=== PATIENT | male | born 1945 | race Caucasian/White ===

== ENCOUNTER → 2017-08-26 06:47 | Outpatient (CLI) | payer MEDICARE, SELFPAY ==
--- NOTE | 2017-08-26 | DI.US.S_ITS ---
PROCEDURE: US ABD AORTA ANEURYSM SCREEN INDICATIONS: SCREENING TECHNIQUE: Real time scanning was performed of the aorta and iliac arteries, with image documentation. COMPARISON: [facility], , ABD AORTA ANEURYSM SCREENING, 06/02/2011, 9:42. FINDINGS: Aorta: Proximal aorta is obscured by bowel gas, 2.2 cm on prior study Mid-aorta measures 1.7 cm. Distal aortic diameter is 1.4 cm. Iliac arteries: Right common iliac artery measures 1.1 cm. Left common iliac artery measures 1.1 cm. IMPRESSION: No aortic aneurysm. No significant change. Dictated by: Mick Arteaga M.D. on 08/26/2017 at 8:41 Approved by: Mick Arteaga M.D. on 08/26/2017 at 8:43
== END ==
PROVIDERS: PCP Internal Medicine; Visit Provider Internal Medicine
DX: Z13.6 Encounter for screening for cardiovascular disorders (principal)
CPT/HCPCS: 76706

== ENCOUNTER → 2021-12-03 08:25 | Outpatient (CLI) | payer MEDICARE, SELFPAY ==
[2021-12-03 09:20] LABS: Add Manual Diff / Slide Review NO; Basophils Absolute Auto 100 /uL (0-100); Basophils Percent Auto 0.7 % (0-2); Eosinophils Absolute Auto 300 /uL (0-450); Hemoglobin 11.5 g/dL (13.5-17.5); Lymphocytes Absolute Auto 1500 /uL (1100-4500); Lymphocytes Percent Auto 18.8 % (25-40); Mean Corpuscular HGB Conc 32.9 % (30-36); Mean Corpuscular Hemoglobin 28.7 PG (26-34); Mean Corpuscular Volume 87.1 fL (80-100); Monocytes Absolute Auto 700 /uL (0-900); Monocytes Percent Auto 8.8 % (3-14); Neutrophils Absolute Auto 5200 /uL (1500-7000); Neutrophils Percent Auto 67.7 % (50-75); Platelet Count 376 X10^3/uL (150-400); Red Blood Cell Count 4.01 X10^6/uL (4.5-5.9); Red Cell Distribution Width 13.9 % (11.6-14.8); White Blood Cell Count 7.7 X10^3/uL (4.5-11.0)
[2021-12-03 09:28] LABS: Hemoglobin A1C% w Est Avg Glu 7.2 % (4.0-6.0)
[2021-12-03 09:32] LABS: Alanine Aminotransferase 20 IU/L (<50); Albumin 4.3 g/dL (3.5-5.0); Albumin Globulin Ratio 1.3 (1.0-2.8); Alkaline Phosphatase 84 U/L (38-126); Aspartate Aminotransferase 27 IU/L (17-59); BUN Creatinine Ratio 20.7 (6-22); Bilirubin Total 0.6 mg/dL (0.2-1.3); Blood Urea Nitrogen 18 mg/dL (9-20); Carbon Dioxide 24 mmol/L (22-32); Chloride 102 mmol/L (98-107); Cholesterol 145 mg/dL (140-199); Estimated Glomerular Filt Rate > 60 mL/min (>60); Globulin 3.4 g/dL (1.7-4.1); Glucose 159 mg/dL (80-110); HDL Cholesterol 35 mg/dL (40-60); HEMOLYSIS < 15 (0-50); LDL Cholesterol Calculated 75 mg/dL (<100); Potassium 4.2 mmol/L (3.4-5.1); Sodium 140 mmol/L (137-145); Total Protein 7.7 g/dL (6.3-8.2); Triglycerides 177 mg/dL (35-150)
[2021-12-03 09:56] LABS: Creatinine Urine Random 151.3 mg/dL
[2021-12-03 10:05] LABS: Ferritin 35 ng/mL (18-464)
[2021-12-03 10:43] LABS: Microalbumi Creatinin Ratio Ur 2346.3 ug/mg CR (<30)
== END ==
PROVIDERS: PCP Family Medicine; Referring Provider Family Medicine; Visit Provider Family Medicine
DX: E78.5 Hyperlipidemia, unspecified (principal); E11.42 Type 2 diabetes mellitus with diabetic polyneuropathy; G25.81 Restless legs syndrome; I10 Essential (primary) hypertension
CPT/HCPCS: 36415; 80053; 80061; 82043; 82570; 82728; 83036; 85025

== ENCOUNTER → 2021-12-16 09:03 | Outpatient (CLI) | payer MEDICARE, SELFPAY ==
[2021-12-16 09:41] LABS: COVID19 -Nasal RAPID Negative (Negative)
--- NOTE | 2021-12-18 17:22 | DI.NM.S_ITS ---
DATE OF SERVICE: 12/16/2021 PROCEDURE PERFORMED: Pharmacologic vasodilator stress and rest myocardial perfusion imaging with gating to assess ejection fraction and regional wall motion. ORDERING PROVIDER: Dr. Jose England. INDICATIONS: The patient is a 75-year-old male with a history of CHF with preserved ejection fraction and severe obstructive sleep apnea. PHARMACOLOGIC STRESS: Per protocol, 0.4 mg of regadenoson was infused with a normal hemodynamic response. He had no chest discomfort or other anginal symptoms. His resting ECG is normal except very subtle nonspecific ST and T-wave abnormalities. With stress, these ST-segment abnormalities becomes slightly accentuated but remain nonspecific. There were no arrhythmias. Per protocol, 27.0 millicuries of technetium-99m Myoview was injected and he was imaged 15 minutes later using a gated SPECT acquisition protocol. Two days prior, he had been injected with 26.5 millicuries of technetium-99m Myoview at rest and was imaged 20 minutes later, again using a gated SPECT acquisition protocol. FINDINGS: 1. Raw data: There is fair myocardial tracer uptake with marginal image quality, but no motion artifacts. His lung/heart ratio is mildly increased at 0.43, which can be a sign of pulmonary congestion, but the TID ratio is normal at 0.89. 2. Quantitated gated SPECT: Post-stress ejection fraction is estimated at 63% without any focal wall motion abnormalities. Specifically, the inferior wall appears to have normal contractility. The resting ejection fraction is 61% with moderately increased left ventricular volumes with an end-diastolic volume of 180 mL. 3. Myocardial perfusion imaging: Post-stress supine images shows a mild-to- moderate perfusion defect throughout the inferior wall in a pattern that would be suggestive of diaphragmatic attenuation artifact. Unfortunately, the patient was unable to lie prone, preventing any assessment for this. The resting images show mild improvement in this inferior defect but a slight residual defect remains present. IMPRESSION: 1. Probable abnormal myocardial perfusion study although with reduced specificity because of marginal image quality. 2. Mild to moderate, partially reversible inferior perfusion defect that suggests possible previous nontransmural infarction with mild linnette-infarct ischemia in the inferior wall, although diaphragmatic attenuation artifact cannot be excluded. Unfortunately, the patient was unable to lie prone to assess for this. 3. Moderate left ventricular enlargement with normal systolic function, but no focal wall motion abnormality. The lung/heart ratio was mildly increased at 0.43, suggesting the possibility of pulmonary congestion, but clinical correlation is recommended. 4. No angina or ECG evidence of ischemia with pharmacologic vasodilator stress. Gildardo Ramirez - SONJA/jose c/kevin doc#: [id number]/job#: [id number] dd: 12/18/2021 13:13:00 dt: 12/18/2021 16:41:00 DICTATING MD/COPIES TO: Delta Larsen MD COPIES MNE: NARESH;
== END ==
PROVIDERS: PCP Family Medicine; Referring Provider Internal Medicine Advanced Heart Failure and Transplant Cardiology; Visit Provider Internal Medicine Advanced Heart Failure and Transplant Cardiology
DX: I11.0 Hypertensive heart disease with heart failure (principal); I50.33 Acute on chronic diastolic (congestive) heart failure; G47.33 Obstructive sleep apnea (adult) (pediatric); R06.00 Dyspnea, unspecified; E11.9 Type 2 diabetes mellitus without complications; E78.5 Hyperlipidemia, unspecified; Z20.822 Contact with and (suspected) exposure to COVID-19
CPT/HCPCS: 78452; 87635; 93017; A9502; J2785

== ENCOUNTER → 2022-04-10 06:44 | Outpatient (CLI) | payer MEDICARE, SELFPAY ==
--- NOTE | 2022-04-16 10:22 | PM.PFT.1 ---
Pulmonary Function Test Referral & Results Date Patient Seen: 04/10/22 Results: The spirometry demonstrates an FVC of 2.45 L which is 40% of predicted. The FEV1 was measured at 1.78 L which is 49% of predicted. The FEV1/FVC ratio was 73 which is 100% of predicted. Following the administration of bronchodilator there was 34% improvement in FEV1 and a 251% improvement in FEF 25-75%. Lung volumes show an SVC of 3.25 L which is 62% of predicted. The diffusing capacity was measured at 17.33 which is 44% of predicted. No hemoglobin value was provided, so no correction for potential anemia could be made, if appropriate. The maximum voluntary ventilation was reduced Interpretation: This study demonstrates moderate obstructive lung disease based on reduction FEV1. FEV1/FVC ratio is preserved however there is evidence of significant benefit following bronchodilator as above There is a moderate reduction in lung volumes suggesting the presence of moderate restrictive lung disease which may explain some of the abnormality in the FEV1 above There is a moderate reduction diffusing capacity, which suggest the presence of disease at the capillary alveolar level Clinical correlation suggested
== END ==
PROVIDERS: PCP Family Medicine; Referring Provider Family Medicine; Visit Provider Family Medicine
DX: R06.09 Other forms of dyspnea (principal); Z87.891 Personal history of nicotine dependence; J98.8 Other specified respiratory disorders
CPT/HCPCS: 94060; 94726; 94729

== ENCOUNTER → 2022-06-24 09:21 | Outpatient (CLI) | payer MEDICARE, SELFPAY ==
[2022-06-24 10:42] LABS: BUN Creatinine Ratio 17.6 (6-22); Blood Urea Nitrogen 19 mg/dL (9-20); Carbon Dioxide 25 mmol/L (22-32); Chloride 101 mmol/L (98-107); Estimated Glomerular Filt Rate > 60 mL/min (>60); Glucose 230 mg/dL (80-110); HEMOLYSIS < 15 (0-50); Sodium 136 mmol/L (137-145)
[2022-06-25 08:31] LABS: x Labcorp Estim. Avg Glu (eAG) 192 mg/dL (.); x Labcorp Hemoglobin A1c 8.3 % (4.8-5.6)
== END ==
PROVIDERS: PCP Family Medicine; Referring Provider Family Medicine; Visit Provider Family Medicine
DX: R80.9 Proteinuria, unspecified (principal); E11.29 Type 2 diabetes mellitus with other diabetic kidney complication
CPT/HCPCS: 36415; 80048; 83036

== ENCOUNTER 2022-07-10 08:30 | Outpatient (RCR) | payer MEDICARE, SELFPAY | END 2022-07-10 10:30 | LOC: PUL 08:30 | PROVIDERS: PCP Family Medicine; Referring Provider Family Medicine; Visit Provider Family Medicine | DX: J44.9 Chronic obstructive pulmonary disease, unspecified (principal) | CPT/HCPCS: 94626 ==

== ENCOUNTER 2022-07-12 08:24 | Emergency (ER) | payer MEDICARE, SELFPAY ==
[2022-07-12] VITALS (129 sets, daily range): BP systolic 73–121; BP diastolic 42–81; PULSE 49–108; RESP 17–31; TEMP 25.4–39.1; O2SAT 80–100; BMI 33.7
--- NOTE | 2022-07-12 08:41 | DI.RAD.S_ITS ---
PROCEDURE: XR CHEST 1V INDICATIONS: short of breath TECHNIQUE: One view of the chest was acquired. COMPARISON: None. FINDINGS: Obliquity and lordotic positioning limiting evaluation. Surgical changes and devices: None. Overlying EKG wires. Lungs and pleura: Within limits of this examination there is low lung volumes causing congestion of the bronchovascular markings. Mediastinum: Obliquity limits evaluation heart size likely within normal limits. Vascular calcifications within the aortic arch. No pneumothorax or large volume pleural effusion. Bones and chest wall: No suspicious bony lesions. Overlying soft tissues appear unremarkable. IMPRESSION: Within limits of this examination there is low lung volumes causing prominence of the bronchovascular markings. Consider dedicated frontal and lateral chest radiographs for further evaluation if clinically warranted Dictated by: Jeffry Gilman D.O. on 07/12/2022 at 8:08 Approved by: Jeffry Gilman D.O. on 07/12/2022 at 8:12
--- NOTE | 2022-07-12 08:43 | DI.CT.S_ITS ---
PROCEDURE: CT HEAD/BRAIN WO CON INDICATIONS: confusion TECHNIQUE: Noncontrast 4.5 mm thick angled axial sections acquired from the foramen magnum to the vertex, with coronal and sagittal reformats. For radiation dose reduction, the following was used: automated exposure control, adjustment of mA and/or kV according to patient size. COMPARISON: None. FINDINGS: Image quality: Excellent. CSF spaces: Basal cisterns are patent. No extra-axial fluid collections. The ventricles are symmetric in size and shape. Brain: No intracranial bleeds or masses. There is cerebral volume loss for age, with resultant ventricular and sulcal prominence. There are periventricular and deep white matter chronic small vessel ischemic changes. There is intracranial internal carotid artery atherosclerosis. Skull and face: Calvarium and visualized facial bones appear intact, without suspicious lesions. Sinuses: Visualized sinuses and mastoids are clear. IMPRESSION: Mild senescent changes including mild cerebral volume loss and microvascular ischemic changes without acute intracranial abnormality. Dictated by: Jeffry Gilman D.O. on 07/12/2022 at 8:22 Approved by: Jeffry Gilman D.O. on 07/12/2022 at 8:27
--- NOTE | 2022-07-12 08:48 | ED.AMS ---
HPI - Altered Mental Status General Chief Complaint: Shortness of Breath/Dyspnea Stated Complaint: GLF, SOB, no thinners Time Seen by Provider: 07/12/22 08:31 Source: patient and EMS Mode of arrival: EMS History of Present Illness HPI narrative: Patient is a 76-year-old history of COPD, hypertension hyperlipidemia, diabetes presenting today with fall and change in mental status. He lives with daughter who reports that he has been slightly confused over the last 2 days. This morning he got up to go to the restroom when he fell. He is unsure the specifics of how he fell but denies any injuries. He denies tripping and falling no chest pain dizziness or shortness of breath. He is obviously tachypneic and slightly jaundiced on exam. He denies any abdominal pain nausea or vomiting. Daughter reports that he has a chronic cough but does not seem to be any worse than normal. He is afebrile denies any alcohol use. He currently denies any shortness of breath. According to PCP note on 07/08/2022 He was previously given albuterol and Flovent but did not fill his Flovent. He attends pulmonary rehab 3 times a week he noted a 17 lb weight loss since April. Related Data Home Medications Medication Instructions Recorded Confirmed ResMed AirSense 10 CPAP #1 ea 04/14/18 07/08/22 acetaminophen 650 mg 1,300 mg PO BID PRN arthritis pain 04/16/18 07/08/22 tablet,extended release (Tylenol Arthritis Pain) aspirin 81 mg tablet,delayed 81 mg PO DAILY 04/16/18 07/08/22 release loratadine 10 mg tablet (Claritin) 10 mg PO DAILY 04/16/18 07/08/22 cinnamon bark 500 mg capsule 1,000 mg PO DAILY 12/03/21 07/08/22 magnesium 1 tab PO BID 12/03/21 07/08/22 Previous Rx's Medication Instructions Recorded atorvastatin 10 mg tablet 10 mg PO DAILY #90 tabs 12/03/21 carvedilol 25 mg tablet See Rx Instructions PO BID #240 12/03/21 tabs cyclobenzaprine 10 mg tablet 10 mg PO BEDTIME #90 tabs 12/03/21 pantoprazole 20 mg tablet,delayed 20 mg PO DAILY #90 tabs 01/21/22 release metformin 1,000 mg tablet See Rx Instructions .Route 03/01/22 .COMPLEX #180 tabs pramipexole 1 mg tablet See Rx Instructions .Route 03/01/22 .COMPLEX #90 tabs blood-glucose sensor (Dexcom G6 #3 ea 03/05/22 Sensor device) blood-glucose sensor (Dexcom G6 #3 ea 03/05/22 Sensor device) blood-glucose transmitter (Dexcom #1 ea 03/05/22 G6 Transmitter device) chlorthalidone 25 mg tablet 25 mg PO DAILY blood pressure #90 03/05/22 tabs pioglitazone 45 mg tablet (Actos) 45 mg PO DAILY diabetes #90 tabs 04/07/22 albuterol sulfate 90 mcg/actuation 1 - 2 inh inhalation Q4-6H PRN 04/16/22 aerosol inhaler shortness of breath or wheezing #8.5 grams fluticasone propionate 110 2 puff inhalation BID COPD #12 04/16/22 mcg/actuation HFA aerosol inhaler grams (Flovent HFA) lisinopril 40 mg tablet 40 mg PO DAILY #90 tabs 05/23/22 gabapentin 300 mg capsule 900 mg PO BEDTIME #270 caps 06/04/22 amlodipine 5 mg tablet 5 mg PO BID #180 tabs 06/12/22 glimepiride 4 mg tablet 4 mg PO BID #180 tabs 06/12/22 Allergies Allergy/AdvReac Type Severity Reaction Status Date / Time No Known Drug Allergies Allergy Verified 07/12/22 15:30 Review of Systems Review of Systems ROS Unobtainable: All systems reviewed & are unremarkable except as noted in HPI and below Patient History Medical History (Updated 07/12/22 @ 15:30 by Luly Huertas DO) Benign essential HTN COPD (chronic obstructive pulmonary disease) NGO (dyspnea on exertion) GERD (gastroesophageal reflux disease) Hyperlipidemia Medicare annual wellness visit, subsequent Obstructive sleep apnea of adult (~12/2017) Peripheral autonomic 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 RLS (restless legs syndrome) Type 2 diabetes mellitus with diabetic polyneuropathy, 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, without long-term current use of insulin Social History (Updated 04/16/18 @ 18:25 by VICKIE Villafuerte) marital status: details: lives in [place] lives independently: Yes caregiver/support person: Yes (he is a caregiver for his GIAN) housing: house Smoking Status: Former smoker Smoking Status: Former smoker alcohol intake frequency: holidays/special occasions only Substance Use Type: does not use Exam Initial Vital Signs Initial Vital Signs: Vital Signs Temperature 98.6 F 07/12/22 08:28 Pulse Rate 106 H 07/12/22 08:28 Respiratory Rate 30 H 07/12/22 08:28 Blood Pressure 103/53 L 07/12/22 08:28 Pulse Oximetry 92 07/12/22 08:28 Oxygen Delivery Method Room Air 07/12/22 08:28 GENERAL: Alert 76-year-old male appears slightly tachypneic mildly jaundice HEENT: Head atraumatic,EOMI, pupils reactive, face symmetric, moist mucous membranes CARDIOVASCULAR: Regular rate and rhythm without murmurs, rubs or gallops. RESPIRATORY: Clear bilaterally, no wheezing tachypneic ABDOMEN: Soft, nontender. Normoactive bowel sounds all 4 quadrants. No guarding or rebound. EXTREMITIES: Normal range of motion, no clubbing or edema. Neurovascularly intact NEUROLOGICAL: Alert and oriented x2. SKIN: Warm, dry, no laceration, no petechiae, no rashes or lesions. Procedures Central Line Placement Right IJ: Central Line Prep: Chlorhexidine scrub and sterile drapes applied Ultrasound Used for Placement: Yes Central Line Lumen Inserted: triple Post Procedure: good blood return, all ports aspirated, flushed, capped, sterile dressing applied and line stabilization device Post Procedure X-Ray: tip of catheter in good position and no pneumothorax seen Patient Tolerated Procedure: Well and No complications Intubation sedative: Etomidate Mg Given: 12 paralytic: Succinylcholine Mg Given: 75 Laryngoscope: other (glide scope) ET Tube Size: 7.5 Tube Secured Depth (cm): 24 Tube Secured Location: lips Tube Placement Confirmation: Visualized tube passing through cords, Equal breath sounds bilaterally, No breath sounds over epigastrium, Confirmation by capnometry and Chest Xray Course Orders Ordered: ED Orders 07/12/22 09:41 ABG [Arterial Blood Gas] Stat 07/12/22 09:46 US abdomen limited Stat 07/12/22 10:47 CT chest abd pel w con Stat 07/12/22 10:51 Ictotest Urine Stat Urinalysis and Microscopic Stat Urine Culture Stat Urine Drug Screen, Rapid Stat 07/12/22 12:23 Lactate (Lactic Acid) Stat Trop I [Troponin I] Stat 07/12/22 13:16 XR chest 1V Stat 07/12/22 13:50 ABG [Arterial Blood Gas] Stat 07/12/22 15:16 Comprehensive Metabolic Panel Stat Lactate (Lactic Acid) Stat Troponin I Stat Discontinued Medications Albuterol/Ipratropium (Albuterol/Ipratropium 3 Ml Ampul) 3 ml INH NOW ONE Stop: 07/12/22 08:50 Last Admin: 07/12/22 09:04 Dose: 3 ml Documented By: FRANKIE Etomidate (Etomidate 2 Mg/Ml 10 Ml Vial) 12.2 mg 0.1 mg/kg (12.2 mg) IV NOW ONE Stop: 07/12/22 12:40 Last Admin: 07/12/22 12:51 Dose: 12.2 mg Documented By: DULCE MARIA Sodium Chloride (Normal Saline 0.9%) 1,000 mls @ 1,000 mls/hr IV BOLUS ONE Stop: 07/12/22 09:41 Last Infusion: 07/12/22 10:30 Dose: 0 mls/hr Documented By: DULCE MARIA Admin: 07/12/22 09:36 Dose: 1,000 mls/hr Documented By: DULCE MARIA Lactated Ringer's (Lactated Ringers) 3,674.1 mls @ 1,224.7 mls/hr 30 ml/kg infuse over 3 hr (3674.1 ml) IV NOW ONE Stop: 07/12/22 12:45 Last Infusion: 07/12/22 14:08 Dose: 0 mls/hr Documented By: DULCE MARIA Admin: 07/12/22 10:36 Dose: 1,224.7 mls/hr Documented By: DULCE MARIA Piperacillin Sod/Tazobactam (Sod 4.5 gm/ Sodium Chloride) 100 mls @ 200 mls/hr IV NOW ONE Stop: 07/12/22 09:47 Last Infusion: 07/12/22 11:50 Dose: 0 mls/hr Documented By: DULCE MARIA Admin: 07/12/22 10:21 Dose: 200 mls/hr Documented By: DULCE MARIA Vancomycin HCl/Dextrose (Vancomycin) 2,000 mg in 400 mls @ 200 mls/hr IV NOW ONE Stop: 07/12/22 11:47 Last Infusion: 07/12/22 14:09 Dose: 0 mls/hr Documented By: Admin: 07/12/22 11:56 Dose: 200 mls/hr Documented By: RLS NOREPINEPHRINE BITARTRATE/D5W (Levophed) 4 mg in 250 mls @ 30 mls/hr IV TITRATE NATALIE; Protocol Last Titration: 07/12/22 16:18 Dose: 40 mcg/min, 150 mls/hr Documented By: Admin: 07/12/22 15:34 Dose: 40 mcg/min, 150 mls/hr Documented By: Titration: 07/12/22 15:34 Dose: 40 mcg/min, 150 mls/hr Documented By: Titration: 07/12/22 15:07 Dose: 60 mcg/min, 225 mls/hr Documented By: Titration: 07/12/22 14:56 Dose: 40 mcg/min, 150 mls/hr Documented By: Titration: 07/12/22 14:30 Dose: 30 mcg/min, 112.5 mls/hr Documented By: Titration: 07/12/22 14:15 Dose: 24 mcg/min, 90 mls/hr Documented By: Titration: 07/12/22 13:56 Dose: 12 mcg/min, 45 mls/hr Documented By: Titration: 07/12/22 13:53 Dose: 25 mcg/min, 93.75 mls/hr Documented By: Titration: 07/12/22 13:40 Dose: 16 mcg/min, 60 mls/hr Documented By: Titration: 07/12/22 12:47 Dose: 12 mcg/min, 45 mls/hr Documented By: Admin: 07/12/22 12:32 Dose: 8 mcg/min, 30 mls/hr Documented By: RLS Propofol (Propofol) 1,000 mg in 100 mls @ 3.674 mls/hr IV TITRATE NTAALIE; Protocol Last Titration: 07/12/22 14:19 Dose: 0 mcg/kg/min, 0 mls/hr Documented By: Titration: 07/12/22 13:58 Dose: 3.4 mcg/kg/min, 2.5 mls/hr Documented By: Admin: 07/12/22 13:06 Dose: 5 mcg/kg/min, 3.674 mls/hr Documented By: RLS Vasopressin 40 unit/ Sodium (Chloride) 102 mls @ 4.5 mls/hr IV CONT NATALIE Last Infusion: 07/12/22 16:18 Dose: 4.5 mls/hr Documented By: Admin: 07/12/22 13:33 Dose: 4.5 mls/hr Documented By: DULCE MARIA Fentanyl 1,000 mcg/ Dextrose 250 mls @ 21.432 mls/hr IV TITRATE NATALIE; Protocol Last Titration: 07/12/22 16:19 Dose: 0 mcg/kg/hr, 0 mls/hr Documented By: DULCE MARIA Titration: 07/12/22 14:30 Dose: 1 mcg/kg/hr, 30.618 mls/hr Documented By: DULCE MARIA Admin: 07/12/22 14:00 Dose: 0.7 mcg/kg/hr, 21.432 mls/hr Documented By: DULCE MARIA Lactated Ringer's (Lactated Ringers) 1,000 mls @ 200 mls/hr IV CONT NATALIE Last Infusion: 07/12/22 16:20 Dose: 200 mls/hr Documented By: DULCE MARIA Admin: 07/12/22 14:48 Dose: 200 mls/hr Documented By: DULCE MARIA Ketorolac Tromethamine (Ketorolac 30 Mg/Ml Vial) 15 mg IV NOW ONE Stop: 07/12/22 11:41 Last Admin: 07/12/22 11:52 Dose: 15 mg Documented By: DULCE MARIA Lidocaine HCl (Lidocaine 2% (Glydo) 6 Ml Gel) 6 ml TOP NOW ONE Stop: 07/12/22 10:14 Last Admin: 07/12/22 10:37 Dose: 6 ml Documented By: DULCE MARIA Methylprednisolone (Methylprednisolone 125 Mg/2 Ml Vial) 125 mg IV NOW ONE Stop: 07/12/22 08:50 Last Admin: 07/12/22 09:36 Dose: 125 mg Documented By: DULCE MARIA Ondansetron HCl (Ondansetron 4 Mg/2 Ml Inj) 4 mg IV NOW PRN PRN Reason: Nausea And Vomiting Ondansetron HCl (Ondansetron 4 Mg Odt) 4 mg SL NOW PRN PRN Reason: Nausea And Vomiting Succinylcholine Chloride (Succinylcholine 200 Mg/10 Ml Vial) 75 mg 0.6 mg/kg (75 mg) IV NOW ONE Stop: 07/12/22 12:41 Last Admin: 07/12/22 13:17 Dose: 75 mg Documented By: DULCE MARIA Vital Signs Vital signs: Vital Signs - 8 hr 07/12/22 10:41 07/12/22 10:41 07/12/22 10:45 Temperature Pulse Rate 89 Respiratory Rate 31 H Blood Pressure 105/54 L 90/52 L Pulse Oximetry 98 Oxygen Delivery Method Oxygen Flow Rate Fraction of Inspired Oxygen 07/12/22 10:45 07/12/22 10:46 07/12/22 10:46 Temperature Pulse Rate 88 87 Respiratory Rate 31 H 24 Blood Pressure 104/55 L Pulse Oximetry 97 97 Oxygen Delivery Method Oxygen Flow Rate Fraction of Inspired Oxygen 07/12/22 10:53 07/12/22 10:53 07/12/22 11:00 Temperature 101.1 F H 101.7 F H Pulse Rate 97 H 92 H Respiratory Rate 25 H 25 H Blood Pressure 106/59 L Pulse Oximetry 97 91 Oxygen Delivery Method Oxygen Flow Rate Fraction of Inspired Oxygen 07/12/22 11:01 07/12/22 11:01 07/12/22 11:03 Temperature 101.8 F H Pulse Rate 93 H Respiratory Rate 25 H Blood Pressure 87/49 L 99/53 L Pulse Oximetry 90 L Oxygen Delivery Method Oxygen Flow Rate Fraction of Inspired Oxygen 07/12/22 11:03 07/12/22 11:22 07/12/22 11:24 Temperature 101.8 F H 102.4 F H Pulse Rate 92 H 90 Respiratory Rate 21 Blood Pressure 114/54 L Pulse Oximetry 91 92 Oxygen Delivery Method Oxygen Flow Rate Fraction of Inspired Oxygen 07/12/22 11:24 07/12/22 11:30 07/12/22 11:30 Temperature 102.4 F H 102.4 F H Pulse Rate 90 90 Respiratory Rate 23 24 Blood Pressure 102/55 L Pulse Oximetry 92 93 Oxygen Delivery Method Oxygen Flow Rate Fraction of Inspired Oxygen 07/12/22 11:52 07/12/22 13:18 07/12/22 11:45 Temperature 102.4 F H 101.8 F H Pulse Rate Respiratory Rate Blood Pressure 108/54 L Pulse Oximetry Oxygen Delivery Method Oxygen Flow Rate Fraction of Inspired Oxygen 07/12/22 11:45 07/12/22 11:45 07/12/22 11:50 Temperature 102.4 F H 102.4 F H Pulse Rate 88 89 Respiratory Rate 22 21 Blood Pressure 108/54 L Pulse Oximetry 93 93 Oxygen Delivery Method Nasal Cannula Oxygen Flow Rate 3 Fraction of Inspired Oxygen 07/12/22 11:50 07/12/22 12:00 07/12/22 12:00 Temperature 102.4 F H Pulse Rate 87 Respiratory Rate 22 Blood Pressure 108/56 L 103/51 L Pulse Oximetry 94 Oxygen Delivery Method Oxygen Flow Rate Fraction of Inspired Oxygen 07/12/22 12:15 07/12/22 12:10 07/12/22 12:15 Temperature 102.4 F H Pulse Rate 83 Respiratory Rate 24 Blood Pressure 103/51 L 85/45 L Pulse Oximetry 98 Oxygen Delivery Method Nasal Cannula Oxygen Flow Rate 3 Fraction of Inspired Oxygen 35 07/12/22 12:15 07/12/22 12:17 07/12/22 12:17 Temperature 102.2 F H 102.2 F H Pulse Rate 80 79 Respiratory Rate 24 24 Blood Pressure 85/46 L Pulse Oximetry 97 96 Oxygen Delivery Method Oxygen Flow Rate Fraction of Inspired Oxygen 07/12/22 12:20 07/12/22 12:21 07/12/22 12:21 Temperature 102.2 F H 102.2 F H Pulse Rate 79 78 Respiratory Rate 24 25 H Blood Pressure 83/45 L Pulse Oximetry 97 98 Oxygen Delivery Method Oxygen Flow Rate Fraction of Inspired Oxygen 07/12/22 12:56 07/12/22 12:56 07/12/22 13:00 Temperature 101.8 F H Pulse Rate 70 Respiratory Rate 17 Blood Pressure 99/51 L 95/53 L Pulse Oximetry 100 Oxygen Delivery Method Oxygen Flow Rate Fraction of Inspired Oxygen 07/12/22 13:00 07/12/22 13:05 07/12/22 13:06 Temperature 101.8 F H 101.8 F H Pulse Rate 66 49 L Respiratory Rate 18 19 Blood Pressure 76/43 L Pulse Oximetry 97 93 Oxygen Delivery Method Oxygen Flow Rate Fraction of Inspired Oxygen 07/12/22 13:06 07/12/22 13:07 07/12/22 13:07 Temperature 101.8 F H 101.8 F H Pulse Rate 51 L 52 L Respiratory Rate 21 18 Blood Pressure 86/51 L Pulse Oximetry 93 93 Oxygen Delivery Method Oxygen Flow Rate Fraction of Inspired Oxygen 07/12/22 13:09 07/12/22 13:09 07/12/22 13:10 Temperature 101.8 F H 101.8 F H Pulse Rate 53 L 56 L Respiratory Rate 18 19 Blood Pressure 90/48 L Pulse Oximetry 90 L 92 Oxygen Delivery Method Oxygen Flow Rate Fraction of Inspired Oxygen 07/12/22 13:12 07/12/22 13:12 07/12/22 13:15 Temperature 101.8 F H Pulse Rate 58 L Respiratory Rate 21 Blood Pressure 91/52 L 92/50 L Pulse Oximetry 93 Oxygen Delivery Method Oxygen Flow Rate Fraction of Inspired Oxygen 07/12/22 13:15 07/12/22 13:18 07/12/22 13:18 Temperature 101.8 F H 101.8 F H Pulse Rate 63 64 Respiratory Rate 23 23 Blood Pressure 83/46 L Pulse Oximetry 93 93 Oxygen Delivery Method Oxygen Flow Rate Fraction of Inspired Oxygen 07/12/22 13:20 07/12/22 13:20 07/12/22 13:21 Temperature 101.8 F H Pulse Rate 61 Respiratory Rate 23 Blood Pressure 85/49 L 90/53 L Pulse Oximetry 95 Oxygen Delivery Method Oxygen Flow Rate Fraction of Inspired Oxygen 07/12/22 13:21 07/12/22 13:24 07/12/22 13:24 Temperature 101.8 F H 101.8 F H Pulse Rate 63 61 Respiratory Rate 22 25 H Blood Pressure 82/43 L Pulse Oximetry 94 95 Oxygen Delivery Method Oxygen Flow Rate Fraction of Inspired Oxygen 07/12/22 13:25 07/12/22 13:27 07/12/22 13:27 Temperature 101.8 F H 101.8 F H Pulse Rate 62 59 L Respiratory Rate 26 H 21 Blood Pressure 81/46 L Pulse Oximetry 95 95 Oxygen Delivery Method Oxygen Flow Rate Fraction of Inspired Oxygen 07/12/22 13:29 07/12/22 13:29 07/12/22 13:30 Temperature 101.8 F H Pulse Rate 68 Respiratory Rate 25 H Blood Pressure 85/49 L 85/49 L Pulse Oximetry 100 Oxygen Delivery Method Oxygen Flow Rate Fraction of Inspired Oxygen 07/12/22 13:30 07/12/22 13:32 07/12/22 13:32 Temperature 101.8 F H 101.7 F H Pulse Rate 69 71 Respiratory Rate 25 H 27 H Blood Pressure 86/51 L Pulse Oximetry 100 100 Oxygen Delivery Method Oxygen Flow Rate Fraction of Inspired Oxygen 07/12/22 13:34 07/12/22 13:34 07/12/22 13:35 Temperature 101.7 F H 101.7 F H Pulse Rate 71 69 Respiratory Rate 25 H 26 H Blood Pressure 87/52 L Pulse Oximetry 100 98 Oxygen Delivery Method Oxygen Flow Rate Fraction of Inspired Oxygen 07/12/22 13:36 07/12/22 13:36 07/12/22 13:38 Temperature 101.7 F H Pulse Rate 66 Respiratory Rate 20 Blood Pressure 86/50 L 86/48 L Pulse Oximetry 97 Oxygen Delivery Method Oxygen Flow Rate Fraction of Inspired Oxygen 07/12/22 13:38 07/12/22 13:40 07/12/22 13:40 Temperature 101.7 F H 101.7 F H Pulse Rate 66 66 Respiratory Rate 24 26 H Blood Pressure 81/42 L Pulse Oximetry 96 96 Oxygen Delivery Method Oxygen Flow Rate Fraction of Inspired Oxygen 07/12/22 13:44 07/12/22 13:44 07/12/22 13:45 Temperature 101.5 F H Pulse Rate 66 Respiratory Rate 25 H Blood Pressure 74/42 L 85/50 L Pulse Oximetry 94 Oxygen Delivery Method Oxygen Flow Rate Fraction of Inspired Oxygen 07/12/22 13:45 07/12/22 13:46 07/12/22 13:46 Temperature 101.5 F H 101.5 F H Pulse Rate 66 69 Respiratory Rate 24 26 H Blood Pressure 87/50 L Pulse Oximetry 96 96 Oxygen Delivery Method Oxygen Flow Rate Fraction of Inspired Oxygen 07/12/22 13:47 07/12/22 13:47 07/12/22 13:48 Temperature 101.5 F H 101.5 F H Pulse Rate 69 67 Respiratory Rate 28 H 28 H Blood Pressure 85/52 L Pulse Oximetry 96 96 Oxygen Delivery Method Mechanical Ventilation Oxygen Flow Rate Fraction of Inspired Oxygen 07/12/22 13:48 07/12/22 13:49 07/12/22 13:49 Temperature 101.5 F H Pulse Rate 69 Respiratory Rate 25 H Blood Pressure 73/47 L 82/49 L Pulse Oximetry 96 Oxygen Delivery Method Oxygen Flow Rate Fraction of Inspired Oxygen 07/12/22 13:50 07/12/22 13:55 07/12/22 14:00 Temperature 101.3 F H 101.3 F H 101.1 F H Pulse Rate 70 68 64 Respiratory Rate 27 H 25 H 24 Blood Pressure Pulse Oximetry 95 96 96 Oxygen Delivery Method Oxygen Flow Rate Fraction of Inspired Oxygen 07/12/22 14:05 07/12/22 14:06 07/12/22 14:06 Temperature Pulse Rate 62 61 Respiratory Rate 23 24 Blood Pressure 80/46 L Pulse Oximetry 96 95 Oxygen Delivery Method Oxygen Flow Rate Fraction of Inspired Oxygen 07/12/22 14:08 07/12/22 14:08 07/12/22 14:10 Temperature 100.9 F H Pulse Rate 59 L Respiratory Rate 22 Blood Pressure 78/46 L 77/46 L Pulse Oximetry 95 Oxygen Delivery Method Oxygen Flow Rate Fraction of Inspired Oxygen 07/12/22 14:10 07/12/22 14:12 07/12/22 14:12 Temperature Pulse Rate 59 L 59 L Respiratory Rate 22 23 Blood Pressure 77/46 L Pulse Oximetry 96 95 Oxygen Delivery Method Oxygen Flow Rate Fraction of Inspired Oxygen 07/12/22 14:14 07/12/22 14:14 07/12/22 14:15 Temperature Pulse Rate 63 63 Respiratory Rate 23 24 Blood Pressure 79/47 L Pulse Oximetry 96 95 Oxygen Delivery Method Oxygen Flow Rate Fraction of Inspired Oxygen 07/12/22 14:16 07/12/22 14:16 07/12/22 14:18 Temperature 100.8 F H Pulse Rate 62 64 Respiratory Rate 22 24 Blood Pressure 82/48 L Pulse Oximetry 95 95 Oxygen Delivery Method Oxygen Flow Rate Fraction of Inspired Oxygen 07/12/22 14:18 07/12/22 14:20 07/12/22 14:20 Temperature Pulse Rate 64 Respiratory Rate 23 Blood Pressure 85/49 L 84/49 L Pulse Oximetry 95 Oxygen Delivery Method Oxygen Flow Rate Fraction of Inspired Oxygen 07/12/22 14:22 07/12/22 14:22 07/12/22 14:24 Temperature Pulse Rate 65 Respiratory Rate 24 Blood Pressure 86/49 L 88/50 L Pulse Oximetry 94 Oxygen Delivery Method Oxygen Flow Rate Fraction of Inspired Oxygen 07/12/22 14:24 07/12/22 14:25 07/12/22 14:26 Temperature 100.8 F H Pulse Rate 65 65 Respiratory Rate 24 24 Blood Pressure 87/49 L Pulse Oximetry 95 94 Oxygen Delivery Method Oxygen Flow Rate Fraction of Inspired Oxygen 07/12/22 14:26 07/12/22 14:28 07/12/22 14:28 Temperature Pulse Rate 66 66 Respiratory Rate 22 22 Blood Pressure 90/54 L Pulse Oximetry 94 94 Oxygen Delivery Method Oxygen Flow Rate Fraction of Inspired Oxygen 07/12/22 14:30 07/12/22 14:30 07/12/22 14:32 Temperature Pulse Rate 66 Respiratory Rate 24 Blood Pressure 89/54 L 90/54 L Pulse Oximetry 94 Oxygen Delivery Method Oxygen Flow Rate Fraction of Inspired Oxygen 07/12/22 14:32 07/12/22 14:34 07/12/22 14:34 Temperature 100.6 F H 100.6 F H Pulse Rate 67 68 Respiratory Rate 23 24 Blood Pressure 93/54 L Pulse Oximetry 94 95 Oxygen Delivery Method Oxygen Flow Rate Fraction of Inspired Oxygen 07/12/22 14:35 07/12/22 14:36 07/12/22 14:36 Temperature Pulse Rate 69 70 Respiratory Rate 25 H 23 Blood Pressure 94/54 L Pulse Oximetry 95 95 Oxygen Delivery Method Oxygen Flow Rate Fraction of Inspired Oxygen 07/12/22 14:38 07/12/22 14:38 07/12/22 14:40 Temperature 100.6 F H Pulse Rate 68 Respiratory Rate 23 Blood Pressure 93/54 L 93/53 L Pulse Oximetry 94 Oxygen Delivery Method Oxygen Flow Rate Fraction of Inspired Oxygen 07/12/22 14:40 07/12/22 14:42 07/12/22 14:42 Temperature 100.6 F H 100.6 F H Pulse Rate 68 69 Respiratory Rate 23 24 Blood Pressure 91/52 L Pulse Oximetry 94 94 Oxygen Delivery Method Oxygen Flow Rate Fraction of Inspired Oxygen 07/12/22 14:44 07/12/22 14:44 07/12/22 14:45 Temperature 100.6 F H 100.4 F H Pulse Rate 69 69 Respiratory Rate 24 24 Blood Pressure 90/52 L Pulse Oximetry 94 95 Oxygen Delivery Method Oxygen Flow Rate Fraction of Inspired Oxygen 07/12/22 14:46 07/12/22 14:46 07/12/22 14:48 Temperature 100.4 F H Pulse Rate 69 Respiratory Rate 23 Blood Pressure 88/51 L 87/49 L Pulse Oximetry 94 Oxygen Delivery Method Oxygen Flow Rate Fraction of Inspired Oxygen 07/12/22 14:48 07/12/22 14:50 07/12/22 14:50 Temperature 100.4 F H 100.4 F H Pulse Rate 67 68 Respiratory Rate 22 23 Blood Pressure 88/52 L Pulse Oximetry 94 95 Oxygen Delivery Method Oxygen Flow Rate Fraction of Inspired Oxygen 07/12/22 14:52 07/12/22 14:52 07/12/22 14:54 Temperature 100.4 F H Pulse Rate 69 Respiratory Rate 25 H Blood Pressure 94/55 L 94/52 L Pulse Oximetry 95 Oxygen Delivery Method Oxygen Flow Rate Fraction of Inspired Oxygen 07/12/22 14:54 07/12/22 14:55 07/12/22 14:56 Temperature 100.4 F H 100.4 F H Pulse Rate 70 64 Respiratory Rate 23 24 Blood Pressure 92/53 L Pulse Oximetry 94 94 Oxygen Delivery Method Oxygen Flow Rate Fraction of Inspired Oxygen 07/12/22 14:56 07/12/22 14:58 07/12/22 14:58 Temperature 100.4 F H 100.2 F H Pulse Rate 65 70 Respiratory Rate 22 24 Blood Pressure 92/55 L Pulse Oximetry 95 95 Oxygen Delivery Method Oxygen Flow Rate Fraction of Inspired Oxygen 07/12/22 15:00 07/12/22 15:00 07/12/22 15:02 Temperature 100.2 F H Pulse Rate 70 Respiratory Rate 23 Blood Pressure 94/55 L 96/51 L Pulse Oximetry 94 Oxygen Delivery Method Oxygen Flow Rate Fraction of Inspired Oxygen 07/12/22 15:02 07/12/22 15:04 07/12/22 15:04 Temperature 100.2 F H 100.2 F H Pulse Rate 72 71 Respiratory Rate 23 23 Blood Pressure 98/51 L Pulse Oximetry 94 95 Oxygen Delivery Method Oxygen Flow Rate Fraction of Inspired Oxygen 07/12/22 15:06 07/12/22 15:06 07/12/22 15:08 Temperature 100.2 F H Pulse Rate 73 Respiratory Rate 24 Blood Pressure 104/51 L 111/57 L Pulse Oximetry 95 Oxygen Delivery Method Oxygen Flow Rate Fraction of Inspired Oxygen 07/12/22 15:08 07/12/22 15:10 07/12/22 15:10 Temperature 100.2 F H Pulse Rate 75 74 Respiratory Rate 26 H 24 Blood Pressure 111/54 L Pulse Oximetry 94 95 Oxygen Delivery Method Oxygen Flow Rate Fraction of Inspired Oxygen 07/12/22 15:12 07/12/22 15:12 07/12/22 15:14 Temperature Pulse Rate 74 Respiratory Rate 25 H Blood Pressure 112/56 L 111/56 L Pulse Oximetry 94 Oxygen Delivery Method Oxygen Flow Rate Fraction of Inspired Oxygen 07/12/22 15:14 07/12/22 15:15 07/12/22 15:16 Temperature Pulse Rate 74 76 Respiratory Rate 24 27 H Blood Pressure 95/47 L Pulse Oximetry 94 95 Oxygen Delivery Method Oxygen Flow Rate Fraction of Inspired Oxygen 07/12/22 15:16 07/12/22 15:18 07/12/22 15:18 Temperature Pulse Rate 70 67 Respiratory Rate 26 H 26 H Blood Pressure 87/43 L Pulse Oximetry 94 94 Oxygen Delivery Method Oxygen Flow Rate Fraction of Inspired Oxygen 07/12/22 15:20 07/12/22 15:20 07/12/22 15:22 Temperature Pulse Rate 73 Respiratory Rate 24 Blood Pressure 103/53 L 108/55 L Pulse Oximetry 94 Oxygen Delivery Method Oxygen Flow Rate Fraction of Inspired Oxygen 07/12/22 15:22 07/12/22 15:24 07/12/22 15:24 Temperature Pulse Rate 74 74 Respiratory Rate 25 H 25 H Blood Pressure 110/56 L Pulse Oximetry 95 94 Oxygen Delivery Method Oxygen Flow Rate Fraction of Inspired Oxygen 07/12/22 15:25 07/12/22 15:26 07/12/22 15:26 Temperature 99.9 F H 99.9 F H Pulse Rate 74 74 Respiratory Rate 23 24 Blood Pressure 110/55 L Pulse Oximetry 94 94 Oxygen Delivery Method Oxygen Flow Rate Fraction of Inspired Oxygen 07/12/22 15:28 07/12/22 15:28 07/12/22 15:30 Temperature 99.9 F H Pulse Rate 74 Respiratory Rate 23 Blood Pressure 115/56 L 110/50 L Pulse Oximetry 94 Oxygen Delivery Method Oxygen Flow Rate Fraction of Inspired Oxygen 07/12/22 15:30 07/12/22 15:33 07/12/22 15:33 Temperature 99.9 F H 99.9 F H Pulse Rate 74 76 Respiratory Rate 24 27 H Blood Pressure 121/81 Pulse Oximetry 94 95 Oxygen Delivery Method Oxygen Flow Rate Fraction of Inspired Oxygen 07/12/22 15:34 07/12/22 15:34 07/12/22 15:35 Temperature Pulse Rate 75 73 Respiratory Rate 25 H 25 H Blood Pressure 113/55 L Pulse Oximetry 95 95 Oxygen Delivery Method Oxygen Flow Rate Fraction of Inspired Oxygen 07/12/22 15:36 07/12/22 15:36 07/12/22 15:38 Temperature Pulse Rate 72 Respiratory Rate 26 H Blood Pressure 106/52 L 103/52 L Pulse Oximetry 95 Oxygen Delivery Method Oxygen Flow Rate Fraction of Inspired Oxygen 07/12/22 15:38 07/12/22 15:40 07/12/22 15:40 Temperature 99.7 F H Pulse Rate 72 73 Respiratory Rate 25 H 24 Blood Pressure 102/55 L Pulse Oximetry 95 94 Oxygen Delivery Method Oxygen Flow Rate Fraction of Inspired Oxygen 07/12/22 15:42 07/12/22 15:42 07/12/22 15:44 Temperature Pulse Rate 72 Respiratory Rate 25 H Blood Pressure 98/55 L 102/54 L Pulse Oximetry 95 Oxygen Delivery Method Oxygen Flow Rate Fraction of Inspired Oxygen 07/12/22 15:44 07/12/22 15:45 07/12/22 15:46 Temperature Pulse Rate 73 73 73 Respiratory Rate 24 23 26 H Blood Pressure Pulse Oximetry 95 95 96 Oxygen Delivery Method Oxygen Flow Rate Fraction of Inspired Oxygen 07/12/22 15:46 07/12/22 15:48 07/12/22 15:48 Temperature 99.7 F H Pulse Rate 73 Respiratory Rate 28 H Blood Pressure 95/55 L 102/55 L Pulse Oximetry 96 Oxygen Delivery Method Oxygen Flow Rate Fraction of Inspired Oxygen 07/12/22 15:50 07/12/22 15:50 07/12/22 15:52 Temperature Pulse Rate 76 Respiratory Rate 27 H 24 Blood Pressure 109/53 L 103/51 L Pulse Oximetry 96 Oxygen Delivery Method Oxygen Flow Rate Fraction of Inspired Oxygen 07/12/22 15:52 07/12/22 16:00 Temperature 99.7 F H 99.5 F Pulse Rate 75 Respiratory Rate Blood Pressure Pulse Oximetry 95 Oxygen Delivery Method Oxygen Flow Rate Fraction of Inspired Oxygen MDM - Altered Mental Status Lab Data 07/12/22 08:30 07/12/22 15:16 Labs: Lab Results 07/12/22 07/12/22 07/12/22 Range/Units 08:30 08:30 08:30 WBC 17.7 H (4.5-11.0) X10^3/uL RBC 3.31 L (4.5-5.9) X10^6/uL Hgb 9.4 L (13.5-17.5) g/dL Hct 29.3 L (41-53) % MCV 87.0 (80-100) fL MCH 28.2 (26-34) PG MCHC 32.4 (30-36) % RDW 15.2 H (11.6-14.8) % Plt Count 385 (150-400) X10^3/uL Neut % (Auto) Not Reportable Lymph % (Auto) Not Reportable [place] % (Auto) Not Reportable Eos % (Auto) Not Reportable Baso % (Auto) Not Reportable Lymph # (Auto) Not Reportable [place] # (Auto) Not Reportable Baso # (Auto) Not Reportable Total Counted 100 Seg Neutrophils % 76.0 H (38-70) % Band Neutrophils % 17.0 H (3-7) % Lymphocytes % (Manual) 5.0 L (25-45) % Monocytes % (Manual) 2.0 (2-11) % Neutrophils # (Manual) 09809 H (5652-8842) /uL RBC Morphology See below Anisocytosis 1+ H PT 15.5 H (10.1-12.7) SECONDS INR 1.3 (0.9-1.3) APTT 32 (26-36) SECONDS ABG pH (7.35-7.45) ABG pCO2 (35-45) mmHg ABG pO2 (80-100) mmHg ABG HCO3 (23-27) mmol/L ABG Total CO2 (23-27) mmol/L ABG O2 Saturation (95-100) % ABG Base Excess (-2-3) mmol/L FiO2 Sodium 134 L (137-145) mmol/L Potassium 4.5 (3.4-5.1) mmol/L Chloride 99 (98-107) mmol/L Carbon Dioxide 16 L (22-32) mmol/L BUN 60 H (9-20) mg/dL Creatinine 2.67 H (0.66-1.25) mg/dL Estimated GFR 24 L (>60) mL/min BUN/Creatinine Ratio 22.5 H (6-22) Glucose 300 H (80-110) mg/dL Lactate (0.7-2.1) mmol/L Calcium 8.7 (8.4-10.2) mg/dL Total Bilirubin 9.2 H (0.2-1.3) mg/dL AST 410 H (17-59) IU/L ALT 420 H (<50) IU/L Alkaline Phosphatase 983 H (38-126) U/L Ammonia (9-30) umol/L Total Creatine Kinase 745 H (55-170) U/L CK-MB (CK-2) TNP CK-MB (CK-2) Rel Index TNP Troponin I 0.038 H (0.01-0.034) ng/mL NT-Pro-B Natriuret Pep 5870 H (<450) pg/mL Total Protein 7.8 (6.3-8.2) g/dL Albumin 3.6 (3.5-5.0) g/dL Globulin 4.2 H (1.7-4.1) g/dL Albumin/Globulin Ratio 0.9 L (1.0-2.8) Lipase 7467 H (23-300) U/L Procalcitonin 16.2 H (<0.5) ng/mL Urine Color Urine Appearance Urine pH (4.5-8.0) Ur Specific [place] (1.000-1.035) Urine Protein (Negative) Urine Glucose (UA) (Negative) g/dL Urine Ketones (NEGATIVE) Urine Occult Blood (Negative) Urine Nitrate (Negative) Urine Bilirubin (NEGATIVE) Ur Bilirubin Confirm (Negative) Urine Urobilinogen (0.2) E.U./dL Ur Leukocyte Esterase (NEGATIVE) Urine RBC (0-5/HPF) Urine WBC (0-5/HPF) Ur Squamous Epith Cells (0-5/HPF) Amorphous Sediment Urine Bacteria (None) Urine Mucus (Negative) Ur Culture Indicated? Salicylates (<20) mg/dL U Opiates 300ng/mL cut (Negative) Ur Oxycodone Screen (Negative) Urine Methadone Screen (Negative) Acetaminophen (10-30) ug/mL Ur Barbiturates Screen (Negative) U Tricyclic Antidepress (Negative) Ur Phencyclidine Scrn (Negative) Ur Amphetamines Screen (Negative) U Methamphetamines Scrn (Negative) Ur MDMA Scrn (Ecstasy) (Negative) U Benzodiazepines Scrn (Negative) Urine Cocaine Screen (Negative) U Marijuana (THC) Screen (Negative) Ethyl Alcohol ( - 10) mg/dL Chlamy pneumoniae PCR (Not Detect) Adenovirus (PCR) (Not Detect) B. pertussis DNA (PCR) (Not Detecte) B.parapertussis DNA PCR (Not Detecte) Coronavirus OC43 (PCR) (Not Detect) Coronavirus HKU1 (PCR) (Not Detect) Coronavirus 229E (PCR) (Not Detect) SARS-CoV-2 (PCR) (Not Detecte) Coronavirus NL63 (PCR) (Not Detect) Human Metapneumovir PCR (Not Detect) Influenza Type A (PCR) (Not Detect) Influenza Type B (PCR) (Not Detect) M. pneumoniae (PCR) (Not Detect) Parainfluenza 1 (PCR) (Not Detect) Parainfluenza 2 (PCR) (Not Detect) Parainfluenza 3 (PCR) (Not Detect) Parainfluenza 4 (PCR) (Not Detect) RSV (PCR) (Not Detect) Entero/Rhino (PCR) (Not Detect) 07/12/22 07/12/22 07/12/22 Range/Units 08:30 08:30 09:10 WBC (4.5-11.0) X10^3/uL RBC (4.5-5.9) X10^6/uL Hgb (13.5-17.5) g/dL Hct (41-53) % MCV (80-100) fL MCH (26-34) PG MCHC (30-36) % RDW (11.6-14.8) % Plt Count (150-400) X10^3/uL Neut % (Auto) Lymph % (Auto) [place] % (Auto) Eos % (Auto) Baso % (Auto) Lymph # (Auto) [place] # (Auto) Baso # (Auto) Total Counted Seg Neutrophils % (38-70) % Band Neutrophils % (3-7) % Lymphocytes % (Manual) (25-45) % Monocytes % (Manual) (2-11) % Neutrophils # (Manual) (2147-8530) /uL RBC Morphology Anisocytosis PT (10.1-12.7) SECONDS INR (0.9-1.3) APTT (26-36) SECONDS ABG pH (7.35-7.45) ABG pCO2 (35-45) mmHg ABG pO2 (80-100) mmHg ABG HCO3 (23-27) mmol/L ABG Total CO2 (23-27) mmol/L ABG O2 Saturation (95-100) % ABG Base Excess (-2-3) mmol/L FiO2 Sodium (137-145) mmol/L Potassium (3.4-5.1) mmol/L Chloride (98-107) mmol/L Carbon Dioxide (22-32) mmol/L BUN (9-20) mg/dL Creatinine (0.66-1.25) mg/dL Estimated GFR (>60) mL/min BUN/Creatinine Ratio (6-22) Glucose (80-110) mg/dL Lactate 6.1 H* (0.7-2.1) mmol/L Calcium (8.4-10.2) mg/dL Total Bilirubin (0.2-1.3) mg/dL AST (17-59) IU/L ALT (<50) IU/L Alkaline Phosphatase (38-126) U/L Ammonia (9-30) umol/L Total Creatine Kinase (55-170) U/L CK-MB (CK-2) CK-MB (CK-2) Rel Index Troponin I (0.01-0.034) ng/mL NT-Pro-B Natriuret Pep (<450) pg/mL Total Protein (6.3-8.2) g/dL Albumin (3.5-5.0) g/dL Globulin (1.7-4.1) g/dL Albumin/Globulin Ratio (1.0-2.8) Lipase (23-300) U/L Procalcitonin (<0.5) ng/mL Urine Color Urine Appearance Urine pH (4.5-8.0) Ur Specific [place] (1.000-1.035) Urine Protein (Negative) Urine Glucose (UA) (Negative) g/dL Urine Ketones (NEGATIVE) Urine Occult Blood (Negative) Urine Nitrate (Negative) Urine Bilirubin (NEGATIVE) Ur Bilirubin Confirm (Negative) Urine Urobilinogen (0.2) E.U./dL Ur Leukocyte Esterase (NEGATIVE) Urine RBC (0-5/HPF) Urine WBC (0-5/HPF) Ur Squamous Epith Cells (0-5/HPF) Amorphous Sediment Urine Bacteria (None) Urine Mucus (Negative) Ur Culture Indicated? Salicylates < 1.0 (<20) mg/dL U Opiates 300ng/mL cut (Negative) Ur Oxycodone Screen (Negative) Urine Methadone Screen (Negative) Acetaminophen < 10 (10-30) ug/mL Ur Barbiturates Screen (Negative) U Tricyclic Antidepress (Negative) Ur Phencyclidine Scrn (Negative) Ur Amphetamines Screen (Negative) U Methamphetamines Scrn (Negative) Ur MDMA Scrn (Ecstasy) (Negative) U Benzodiazepines Scrn (Negative) Urine Cocaine Screen (Negative) U Marijuana (THC) Screen (Negative) Ethyl Alcohol < 10 ( - 10) mg/dL Chlamy pneumoniae PCR Not detected (Not Detect) Adenovirus (PCR) Not detected (Not Detect) B. pertussis DNA (PCR) Not detected (Not Detecte) B.parapertussis DNA PCR Not detected (Not Detecte) Coronavirus OC43 (PCR) Not detected (Not Detect) Coronavirus HKU1 (PCR) Not detected (Not Detect) Coronavirus 229E (PCR) Not detected (Not Detect) SARS-CoV-2 (PCR) Not detected (Not Detecte) Coronavirus NL63 (PCR) Not detected (Not Detect) Human Metapneumovir PCR Not detected (Not Detect) Influenza Type A (PCR) Not detected (Not Detect) Influenza Type B (PCR) Not detected (Not Detect) M. pneumoniae (PCR) Not detected (Not Detect) Parainfluenza 1 (PCR) Not detected (Not Detect) Parainfluenza 2 (PCR) Not detected (Not Detect) Parainfluenza 3 (PCR) Not detected (Not Detect) Parainfluenza 4 (PCR) Not detected (Not Detect) RSV (PCR) Not detected (Not Detect) Entero/Rhino (PCR) Not detected (Not Detect) 07/12/22 07/12/22 07/12/22 Range/Units 09:30 09:41 10:51 WBC (4.5-11.0) X10^3/uL RBC (4.5-5.9) X10^6/uL Hgb (13.5-17.5) g/dL Hct (41-53) % MCV (80-100) fL MCH (26-34) PG MCHC (30-36) % RDW (11.6-14.8) % Plt Count (150-400) X10^3/uL Neut % (Auto) Lymph % (Auto) [place] % (Auto) Eos % (Auto) Baso % (Auto) Lymph # (Auto) [place] # (Auto) Baso # (Auto) Total Counted Seg Neutrophils % (38-70) % Band Neutrophils % (3-7) % Lymphocytes % (Manual) (25-45) % Monocytes % (Manual) (2-11) % Neutrophils # (Manual) (7339-2904) /uL RBC Morphology Anisocytosis PT (10.1-12.7) SECONDS INR (0.9-1.3) APTT (26-36) SECONDS ABG pH 7.40 (7.35-7.45) ABG pCO2 26.7 L (35-45) mmHg ABG pO2 92 (80-100) mmHg ABG HCO3 17 L (23-27) mmol/L ABG Total CO2 17 L (23-27) mmol/L ABG O2 Saturation 97 (95-100) % ABG Base Excess -8.0 L (-2-3) mmol/L FiO2 35 Sodium (137-145) mmol/L Potassium (3.4-5.1) mmol/L Chloride (98-107) mmol/L Carbon Dioxide (22-32) mmol/L BUN (9-20) mg/dL Creatinine (0.66-1.25) mg/dL Estimated GFR (>60) mL/min BUN/Creatinine Ratio (6-22) Glucose (80-110) mg/dL Lactate (0.7-2.1) mmol/L Calcium (8.4-10.2) mg/dL Total Bilirubin (0.2-1.3) mg/dL AST (17-59) IU/L ALT (<50) IU/L Alkaline Phosphatase (38-126) U/L Ammonia 24 (9-30) umol/L Total Creatine Kinase (55-170) U/L CK-MB (CK-2) CK-MB (CK-2) Rel Index Troponin I (0.01-0.034) ng/mL NT-Pro-B Natriuret Pep (<450) pg/mL Total Protein (6.3-8.2) g/dL Albumin (3.5-5.0) g/dL Globulin (1.7-4.1) g/dL Albumin/Globulin Ratio (1.0-2.8) Lipase (23-300) U/L Procalcitonin (<0.5) ng/mL Urine Color Other Urine Appearance Cloudy Urine pH 5.0 (4.5-8.0) Ur Specific [place] 1.025 (1.000-1.035) Urine Protein 3+ H (Negative) Urine Glucose (UA) Negative (Negative) g/dL Urine Ketones Trace H (NEGATIVE) Urine Occult Blood 3+ H (Negative) Urine Nitrate Positive H (Negative) Urine Bilirubin 3+ H (NEGATIVE) Ur Bilirubin Confirm Positive H (Negative) Urine Urobilinogen 4.0 H (0.2) E.U./dL Ur Leukocyte Esterase Negative (NEGATIVE) Urine RBC 5-10/hpf H (0-5/HPF) Urine WBC 5-10/hpf H (0-5/HPF) Ur Squamous Epith Cells 0-1 /hpf (0-5/HPF) Amorphous Sediment 3+ Urine Bacteria Occasional (0-1) (None) Urine Mucus 3+ H (Negative) Ur Culture Indicated? Specimen cultured Salicylates (<20) mg/dL U Opiates 300ng/mL cut (Negative) Ur Oxycodone Screen (Negative) Urine Methadone Screen (Negative) Acetaminophen (10-30) ug/mL Ur Barbiturates Screen (Negative) U Tricyclic Antidepress (Negative) Ur Phencyclidine Scrn (Negative) Ur Amphetamines Screen (Negative) U Methamphetamines Scrn (Negative) Ur MDMA Scrn (Ecstasy) (Negative) U Benzodiazepines Scrn (Negative) Urine Cocaine Screen (Negative) U Marijuana (THC) Screen (Negative) Ethyl Alcohol ( - 10) mg/dL Chlamy pneumoniae PCR (Not Detect) Adenovirus (PCR) (Not Detect) B. pertussis DNA (PCR) (Not Detecte) B.parapertussis DNA PCR (Not Detecte) Coronavirus OC43 (PCR) (Not Detect) Coronavirus HKU1 (PCR) (Not Detect) Coronavirus 229E (PCR) (Not Detect) SARS-CoV-2 (PCR) (Not Detecte) Coronavirus NL63 (PCR) (Not Detect) Human Metapneumovir PCR (Not Detect) Influenza Type A (PCR) (Not Detect) Influenza Type B (PCR) (Not Detect) M. pneumoniae (PCR) (Not Detect) Parainfluenza 1 (PCR) (Not Detect) Parainfluenza 2 (PCR) (Not Detect) Parainfluenza 3 (PCR) (Not Detect) Parainfluenza 4 (PCR) (Not Detect) RSV (PCR) (Not Detect) Entero/Rhino (PCR) (Not Detect) 07/12/22 07/12/22 07/12/22 Range/Units 10:51 12:23 12:23 WBC (4.5-11.0) X10^3/uL RBC (4.5-5.9) X10^6/uL Hgb (13.5-17.5) g/dL Hct (41-53) % MCV (80-100) fL MCH (26-34) PG MCHC (30-36) % RDW (11.6-14.8) % Plt Count (150-400) X10^3/uL Neut % (Auto) Lymph % (Auto) [place] % (Auto) Eos % (Auto) Baso % (Auto) Lymph # (Auto) [place] # (Auto) Baso # (Auto) Total Counted Seg Neutrophils % (38-70) % Band Neutrophils % (3-7) % Lymphocytes % (Manual) (25-45) % Monocytes % (Manual) (2-11) % Neutrophils # (Manual) (3402-3608) /uL RBC Morphology Anisocytosis PT (10.1-12.7) SECONDS INR (0.9-1.3) APTT (26-36) SECONDS ABG pH (7.35-7.45) ABG pCO2 (35-45) mmHg ABG pO2 (80-100) mmHg ABG HCO3 (23-27) mmol/L ABG Total CO2 (23-27) mmol/L ABG O2 Saturation (95-100) % ABG Base Excess (-2-3) mmol/L FiO2 Sodium (137-145) mmol/L Potassium (3.4-5.1) mmol/L Chloride (98-107) mmol/L Carbon Dioxide (22-32) mmol/L BUN (9-20) mg/dL Creatinine (0.66-1.25) mg/dL Estimated GFR (>60) mL/min BUN/Creatinine Ratio (6-22) Glucose (80-110) mg/dL Lactate 6.1 H* (0.7-2.1) mmol/L Calcium (8.4-10.2) mg/dL Total Bilirubin (0.2-1.3) mg/dL AST (17-59) IU/L ALT (<50) IU/L Alkaline Phosphatase (38-126) U/L Ammonia (9-30) umol/L Total Creatine Kinase (55-170) U/L CK-MB (CK-2) CK-MB (CK-2) Rel Index Troponin I 0.049 H (0.01-0.034) ng/mL NT-Pro-B Natriuret Pep (<450) pg/mL Total Protein (6.3-8.2) g/dL Albumin (3.5-5.0) g/dL Globulin (1.7-4.1) g/dL Albumin/Globulin Ratio (1.0-2.8) Lipase (23-300) U/L Procalcitonin (<0.5) ng/mL Urine Color Urine Appearance Urine pH (4.5-8.0) Ur Specific [place] (1.000-1.035) Urine Protein (Negative) Urine Glucose (UA) (Negative) g/dL Urine Ketones (NEGATIVE) Urine Occult Blood (Negative) Urine Nitrate (Negative) Urine Bilirubin (NEGATIVE) Ur Bilirubin Confirm (Negative) Urine Urobilinogen (0.2) E.U./dL Ur Leukocyte Esterase (NEGATIVE) Urine RBC (0-5/HPF) Urine WBC (0-5/HPF) Ur Squamous Epith Cells (0-5/HPF) Amorphous Sediment Urine Bacteria (None) Urine Mucus (Negative) Ur Culture Indicated? Salicylates (<20) mg/dL U Opiates 300ng/mL cut Negative (Negative) Ur Oxycodone Screen Negative (Negative) Urine Methadone Screen Negative (Negative) Acetaminophen (10-30) ug/mL Ur Barbiturates Screen Negative (Negative) U Tricyclic Antidepress Negative (Negative) Ur Phencyclidine Scrn Negative (Negative) Ur Amphetamines Screen Negative (Negative) U Methamphetamines Scrn Negative (Negative) Ur MDMA Scrn (Ecstasy) Negative (Negative) U Benzodiazepines Scrn Negative (Negative) Urine Cocaine Screen Negative (Negative) U Marijuana (THC) Screen Negative (Negative) Ethyl Alcohol ( - 10) mg/dL Chlamy pneumoniae PCR (Not Detect) Adenovirus (PCR) (Not Detect) B. pertussis DNA (PCR) (Not Detecte) B.parapertussis DNA PCR (Not Detecte) Coronavirus OC43 (PCR) (Not Detect) Coronavirus HKU1 (PCR) (Not Detect) Coronavirus 229E (PCR) (Not Detect) SARS-CoV-2 (PCR) (Not Detecte) Coronavirus NL63 (PCR) (Not Detect) Human Metapneumovir PCR (Not Detect) Influenza Type A (PCR) (Not Detect) Influenza Type B (PCR) (Not Detect) M. pneumoniae (PCR) (Not Detect) Parainfluenza 1 (PCR) (Not Detect) Parainfluenza 2 (PCR) (Not Detect) Parainfluenza 3 (PCR) (Not Detect) Parainfluenza 4 (PCR) (Not Detect) RSV (PCR) (Not Detect) Entero/Rhino (PCR) (Not Detect) 07/12/22 07/12/22 07/12/22 Range/Units 13:50 15:16 15:16 WBC (4.5-11.0) X10^3/uL RBC (4.5-5.9) X10^6/uL Hgb (13.5-17.5) g/dL Hct (41-53) % MCV (80-100) fL MCH (26-34) PG MCHC (30-36) % RDW (11.6-14.8) % Plt Count (150-400) X10^3/uL Neut % (Auto) Lymph % (Auto) [place] % (Auto) Eos % (Auto) Baso % (Auto) Lymph # (Auto) [place] # (Auto) Baso # (Auto) Total Counted Seg Neutrophils % (38-70) % Band Neutrophils % (3-7) % Lymphocytes % (Manual) (25-45) % Monocytes % (Manual) (2-11) % Neutrophils # (Manual) (3934-4934) /uL RBC Morphology Anisocytosis PT (10.1-12.7) SECONDS INR (0.9-1.3) APTT (26-36) SECONDS ABG pH 7.23 L* (7.35-7.45) ABG pCO2 34.6 L (35-45) mmHg ABG pO2 84 (80-100) mmHg ABG HCO3 15 L (23-27) mmol/L ABG Total CO2 16 L (23-27) mmol/L ABG O2 Saturation 94 L (95-100) % ABG Base Excess -13.0 L (-2-3) mmol/L FiO2 50 Sodium 131 L (137-145) mmol/L Potassium 5.1 (3.4-5.1) mmol/L Chloride 100 (98-107) mmol/L Carbon Dioxide 10 L (22-32) mmol/L BUN 58 H (9-20) mg/dL Creatinine 3.06 H (0.66-1.25) mg/dL Estimated GFR 20 L (>60) mL/min BUN/Creatinine Ratio 19.0 (6-22) Glucose 315 H (80-110) mg/dL Lactate 6.2 H* (0.7-2.1) mmol/L Calcium 7.5 L (8.4-10.2) mg/dL Total Bilirubin 7.0 H (0.2-1.3) mg/dL AST 466 H (17-59) IU/L ALT 399 H (<50) IU/L Alkaline Phosphatase 599 H (38-126) U/L Ammonia (9-30) umol/L Total Creatine Kinase (55-170) U/L CK-MB (CK-2) CK-MB (CK-2) Rel Index Troponin I 0.048 H (0.01-0.034) ng/mL NT-Pro-B Natriuret Pep (<450) pg/mL Total Protein 6.2 L (6.3-8.2) g/dL Albumin 3.0 L (3.5-5.0) g/dL Globulin 3.2 (1.7-4.1) g/dL Albumin/Globulin Ratio 0.9 L (1.0-2.8) Lipase (23-300) U/L Procalcitonin (<0.5) ng/mL Urine Color Urine Appearance Urine pH (4.5-8.0) Ur Specific [place] (1.000-1.035) Urine Protein (Negative) Urine Glucose (UA) (Negative) g/dL Urine Ketones (NEGATIVE) Urine Occult Blood (Negative) Urine Nitrate (Negative) Urine Bilirubin (NEGATIVE) Ur Bilirubin Confirm (Negative) Urine Urobilinogen (0.2) E.U./dL Ur Leukocyte Esterase (NEGATIVE) Urine RBC (0-5/HPF) Urine WBC (0-5/HPF) Ur Squamous Epith Cells (0-5/HPF) Amorphous Sediment Urine Bacteria (None) Urine Mucus (Negative) Ur Culture Indicated? Salicylates (<20) mg/dL U Opiates 300ng/mL cut (Negative) Ur Oxycodone Screen (Negative) Urine Methadone Screen (Negative) Acetaminophen (10-30) ug/mL Ur Barbiturates Screen (Negative) U Tricyclic Antidepress (Negative) Ur Phencyclidine Scrn (Negative) Ur Amphetamines Screen (Negative) U Methamphetamines Scrn (Negative) Ur MDMA Scrn (Ecstasy) (Negative) U Benzodiazepines Scrn (Negative) Urine Cocaine Screen (Negative) U Marijuana (THC) Screen (Negative) Ethyl Alcohol ( - 10) mg/dL Chlamy pneumoniae PCR (Not Detect) Adenovirus (PCR) (Not Detect) B. pertussis DNA (PCR) (Not Detecte) B.parapertussis DNA PCR (Not Detecte) Coronavirus OC43 (PCR) (Not Detect) Coronavirus HKU1 (PCR) (Not Detect) Coronavirus 229E (PCR) (Not Detect) SARS-CoV-2 (PCR) (Not Detecte) Coronavirus NL63 (PCR) (Not Detect) Human Metapneumovir PCR (Not Detect) Influenza Type A (PCR) (Not Detect) Influenza Type B (PCR) (Not Detect) M. pneumoniae (PCR) (Not Detect) Parainfluenza 1 (PCR) (Not Detect) Parainfluenza 2 (PCR) (Not Detect) Parainfluenza 3 (PCR) (Not Detect) Parainfluenza 4 (PCR) (Not Detect) RSV (PCR) (Not Detect) Entero/Rhino (PCR) (Not Detect) Imaging Data CT scan - head: Radiologist's Impression: PROCEDURE:? CT HEAD/BRAIN WO CON ? INDICATIONS:? confusion ? TECHNIQUE:? Noncontrast 4.5 mm thick angled axial sections acquired from the foramen magnum to the vertex, with coronal and sagittal reformats.? For radiation dose reduction, the following was used:? automated exposure control, adjustment of mA and/or kV according to patient size.? ? COMPARISON:? None. ? FINDINGS:? Image quality:? Excellent.? ? CSF spaces:? Basal cisterns are patent.? No extra-axial fluid collections.? The ventricles are symmetric in size and shape.? ? Brain:? No intracranial bleeds or masses.? There is cerebral volume loss for age, with resultant ventricular and sulcal prominence.? There are periventricular and deep white matter chronic small vessel ischemic changes.? There is intracranial internal carotid artery atherosclerosis.? ? Skull and face:? Calvarium and visualized facial bones appear intact, without suspicious lesions.? ? Sinuses:? Visualized sinuses and mastoids are clear.? ? IMPRESSION:? ? Mild senescent changes including mild cerebral volume loss and microvascular ischemic changes without acute intracranial abnormality. ? ? Dictated by: Jeffry Gilman D.O. on 07/12/2022 at 8:22 ? ? Chest x-ray: Radiologist's Impression: PROCEDURE:? XR CHEST 1V ? INDICATIONS:? short of breath ? TECHNIQUE:? One view of the chest was acquired.? ? COMPARISON:? None. ? FINDINGS:? ? Obliquity and lordotic positioning limiting evaluation. ? Surgical changes and devices:? None.? Overlying EKG wires.? ? Lungs and pleura:? Within limits of this examination there is low lung volumes causing congestion of the bronchovascular markings. ? Mediastinum:? Obliquity limits evaluation heart size likely within normal limits.? Vascular calcifications within the aortic arch.? No pneumothorax or large volume pleural effusion. ? Bones and chest wall:? No suspicious bony lesions.? Overlying soft tissues appear unremarkable.? ? IMPRESSION:? ? Within limits of this examination there is low lung volumes causing prominence of the bronchovascular markings.? Consider dedicated frontal and lateral chest radiographs for further evaluation if clinically warranted ? Dictated by: Jeffry Gilman D.O. on 07/12/2022 at 8:08 ? US - abdomen: Radiologist's Impression: PROCEDURE: US ABDOMEN LIMITED ? INDICATIONS:? ELEVATED LFTS, BILIRUBIN ? TECHNIQUE:? Real-time focused scanning was performed of the Right Upper Quadrant, with image documentation.? ? COMPARISON:? None. ? FINDINGS:? ? Limited exam given patient's inability to cooperate with exam. ? Liver is enlarged measuring 20 centimeters in diameter.? There is diffuse increased echogenicity.? No focal lesion or intrahepatic ductal dilation. ? Gallbladder not identified.? Recommend clinical correlation with history for cholecystectomy. ? Common bile duct measures 10 millimeters. ? Proximal pancreas is unremarkable in appearance. ? IMPRESSION:? ? Hepatomegaly with findings of hepatic steatosis. ? Gallbladder not identified.? Common bile duct measures 10 millimeters.? This may be within normal limits if patient has history of cholecystectomy.? Recommend correlation with lab values to exclude obstruction. ? Dictated by: Jeffry Gilman D.O. on 07/12/2022 at 10:03 ? ? CT scan - abdomen/pelvis: Radiologist's Impression: PROCEDURE:? CT CHEST ABD PEL W CON ? INDICATIONS:? septic elevated bili, lipase and liver enzymes ? TECHNIQUE:? After the administration of intravenous contrast, 5 mm thick sections acquired from the lung apices to the symphysis.? 5 mm coronal and sagittal reformats were performed, with additional 7 mm MIP reformats through the lungs.? For radiation dose reduction, the following was used:? automated exposure control, adjustment of mA and/or kV according to patient size.? ? COMPARISON:? [facility], , ABDOMEN LIMITED, 07/12/2022, 10:28. ? FINDINGS:? Image quality:? Excellent.? ? CHEST:? Lungs and pleura:? Hypoventilatory changes with artifact from motion limiting evaluation. ?No focal consolidation identified.? There is diffuse atelectasis most prominent at the posterior aspect of the lower lobes.? There is a subpleural nodule measuring 6 millimeters of the right upper lobe (series 2, image 19).? No pleural effusions or pneumothorax.? Central and peripheral airways appear patent .? Central airways are grossly patent. ? Mediastinum:? Heart size is normal.? Moderate to severe coronary vascular calcifications. ?No pericardial effusion.? No mediastinal or hilar adenopathy by size criteria.? Thoracic aorta and central pulmonary arteries are normal in size.? Esophagus is normal in caliber. ?Small-moderate hiatal hernia. ? Chest wall:? No axillary or supraclavicular adenopathy by size criteria.? Thyroid gland demonstrates subcentimeter hypodensities..? ? ? ABDOMEN:? Solid organs:? The liver demonstrates a hypodensity within the posterior aspect of the right hepatic lobe measuring up to 4.9 x 4.0 centimeters on axial imaging.? There is mild intrahepatic ductal dilation.? Gallbladder is not identified likely surgically absent.? Common bile duct is enlarged measuring 1.5 centimeters in diameter. Pancreas enhances normally with mild atrophy.? No surrounding inflammation..? Spleen is normal in size and enhancement.? No adrenal nodules.? Kidneys demonstrate normal size and enhancement, without hydronephrosis.? ? Peritoneum and bowel:? Bowel loops demonstrate normal wall thickness and caliber.? No free fluid or air.? ? Nodes and vessels:? No retroperitoneal or mesenteric adenopathy by size criteria.? Aorta and inferior vena cava are normal in size.? Diffuse vascular calcifications. ? Miscellaneous:? Fat containing periumbilical hernia. ? ? PELVIS:? Genitourinary:? Bladder is decompressed with intraluminal Paz catheter. ? Miscellaneous:? Fat containing inguinal hernia is.? No adenopathy. ? Bones:? No suspicious bony lesions.? Diffuse age appropriate degenerative changes.? Bilateral pars defects of L5 with grade 1 anterolisthesis of L5 on S1.? No vertebral body compression fractures.? ? IMPRESSION:? ? Prominence of the common bile duct measuring up to 1.5 centimeters along with intrahepatic ductal dilation.? Recommend correlation for obstruction. ? Nonspecific right hepatic lobe mass measuring 4.9 x 4.0 centimeters.? Recommend liver MRI for further evaluation. ? 6 millimeter subpleural right upper lobe lung nodule.? Consider follow-up CT in 1 year. ? Additional chronic findings as above. ? ? Dictated by: Jeffry Gilman D.O. on 07/12/2022 at 10:30 ? ? Approved by: Jeffry Gilman D.O. on 07/12/2022 at 10:44 ? CXR #2: Radiologist's Impression: PROCEDURE:? XR CHEST 1V ? INDICATIONS:? Flu like symptoms ? TECHNIQUE:? One view of the chest was acquired.? ? COMPARISON:? [facility], CR, XR CHEST 1V, 07/12/2022, 8:48. ? FINDINGS:? ? Surgical changes and devices:? Right chest wall port a catheter with the tip overlying the expected location of the superior vena cava.? Endotracheal tube is noted with the tip approximately 1.7 centimeters from the jami.? Overlying EKG wires. ? Lungs and pleura:? Lungs are clear.? No pleural effusions or pneumothorax.? ? Mediastinum:? Mediastinal contours appear normal.? Heart size is normal.? ? Bones and chest wall:? No suspicious bony lesions.? Overlying soft tissues appear unremarkable.? ? IMPRESSION:? ? Endotracheal tube with the tip approximately 1.7 centimeters from the jami.? Right chest wall port a catheter with the tip overlying the expected location of the superior vena cava. ? No acute cardiopulmonary abnormality identified. ? ? Dictated by: Jeffry Gilman D.O. on 07/12/2022 at 12:59 ? ? ECG Data Interpretation: Normal sinus rhythm rate 104 NE interval 172 QRS 74 QTC 426 mild artifact Q-waves noted in lead [address] changes MDM Narrative Medical decision making narrative: Patient is 77-year-old male history of insulin-dependent diabetes, COPD, presents today with 2-3 days of increased confusion fall and weakness. He appears jaundiced with a bilirubin of 9.2 elevated liver enzymes and elevated alk-phos and lipase consistent with choledocholithiasis and pancreatitis. Lipase is elevated at 5870. Hepatic encephalopathy ruled out with a negative ammonia at 24. Patient is found to have leukocytosis of 17 point says been concern for sepsis. Lactate returns critically elevated at 6.1 with an elevated procalcitonin as well. He is given Zosyn vancomycin and sepsis fluids have been ordered. Other abnormal labs troponin 0.03 with BNP of 58 70 no known congestive heart failure lungs are clear not actually hypoxic and no evidence of fluid overload at this time. Imaging head CT is negative chest x-ray does not show any abnormality, ultrasound right upper quadrant show common bile duct elevated at 10 mm chest abdomen pelvis with contrast continues to showed dilated CBD at 1.5 cm with no known stone. During patient's stay in the ED blood pressure decreases slight delay in IV fluids. Patient's mental status decreasing becoming more more difficult to arouse. He still has a weak gag but ultimately intubated for airway protection. Blood pressure also starts decreasing Levophed started and needing vasopressin for support. Patient needing emergent ERCP for presumed septic shock and choledocholithiasis. He actually also has a UTI with wbc's 5-10 along with nitrates which may also be contributing to his sepsis shock. Dr. Akshat ANDREA at [facility] updated on patient's symptoms test results agrees that patient needs to be emergently transferred and he can hopefully do ERCP later today. Dr. Wild hospitalist at [facility] kindly accepts patient. They have discussed with hospitalist. Critical Care Time Critical Care Time Critical Care Time: Yes Total Critical Care Time: 75 Attestation: The high probability of a clinically significant, sudden or life threatening deterioration of the [cardiovascular] system(s) required my full and direct attention, intervention and personal management. The aggregate critical care time was [45] minutes. This time is in addition to time spent performing reported procedures but includes the following: [x] Data Review and interpretation [x] Patient assessment and monitoring of vital signs [x] Documentation [x] Medication orders and management Discharge Plan Departure Patient Disposition: [facility] Clinical Impression: Septic shock, Choledocholithiasis, Acute pancreatitis, Acute UTI Prescriptions: No Action pantoprazole 20 mg tablet,delayed release (DR/EC) 20 mg PO DAILY Qty: 90 3RF metformin 1,000 mg tablet See Rx Instructions .ROUTE .COMPLEX Qty: 180 3RF Dose Instruction: TAKE 1 TABLET BY MOUTH TWICE DAILY Rx Instructions: TAKE 1 TABLET BY MOUTH TWICE DAILY pramipexole 1 mg tablet See Rx Instructions .ROUTE .COMPLEX Qty: 90 1RF Dose Instruction: TAKE 1 TABLET BY MOUTH AT BEDTIME Rx Instructions: TAKE 1 TABLET BY MOUTH AT BEDTIME lisinopril 40 mg tablet 40 mg PO DAILY Qty: 90 3RF gabapentin 300 mg capsule 900 mg PO BEDTIME Qty: 270 3RF amlodipine 5 mg tablet 5 mg PO BID Qty: 180 3RF glimepiride 4 mg tablet 4 mg PO BID Qty: 180 3RF chlorthalidone 25 mg tablet 25 mg PO DAILY Qty: 90 3RF (DME) Dexcom G6 Sensor Device See Rx Instructions .ROUTE .MEDSUPPLY Qty: 3 11RF Rx Instructions: As directed, replace every 10 days (DME) Dexcom G6 Sensor Device See Rx Instructions .ROUTE .MEDSUPPLY Qty: 3 11RF Rx Instructions: As directed, replace every 10 days (DME) Dexcom G6 Transmitter Device See Rx Instructions .ROUTE .MEDSUPPLY Qty: 1 11RF Rx Instructions: As directed pioglitazone [Actos] 45 mg tablet 45 mg PO DAILY Qty: 90 3RF cinnamon bark 500 mg capsule 1,000 mg PO DAILY magnesium Tablet 1 tab PO BID atorvastatin 10 mg tablet 10 mg PO DAILY Qty: 90 3RF carvedilol 25 mg tablet See Rx Instructions PO BID Qty: 240 3RF Rx Instructions: 1.5 tablets orally twice a day; 1.5 tablets PO BID; cyclobenzaprine 10 mg tablet 10 mg PO BEDTIME Qty: 90 3RF fluticasone propionate [Flovent HFA] 110 mcg/actuation HFA aerosol inhaler 2 puff inhalation BID Qty: 12 11RF albuterol sulfate 90 mcg/actuation HFA aerosol inhaler 1 - 2 inh inhalation Q4-6H PRN (Reason: shortness of breath or wheezing) Qty: 8.5 11RF (DME) ResMed AirSense 10 CPAP Qty: 1 Dose Instruction: As directed Patient Comments: Pressure: 7-12 cmH2O DME: [facility] Rx Instructions: As directed aspirin 81 mg tablet,delayed release (DR/EC) 81 mg PO DAILY loratadine [Claritin] 10 mg tablet 10 mg PO DAILY acetaminophen [Tylenol Arthritis Pain] 650 mg tablet extended release 1,300 mg PO BID PRN (Reason: arthritis pain) Referrals: Saige Jones DO [Primary Care Provider] -
[2022-07-12] MEDS: ALBUTEROL/IPRATROPIUM 3 ML AMPUL INH (09:04)
[2022-07-12 09:07] LABS: INR 1.3 (0.9-1.3); Prothrombin Time 15.5 SECONDS (10.1-12.7)
[2022-07-12 09:09] LABS: PTT Partial Thromboplastin Tim 32 SECONDS (26-36)
[2022-07-12 09:11] LABS: Mean Corpuscular HGB Conc 32.4 % (30-36); Mean Corpuscular Hemoglobin 28.2 PG (26-34); Platelet Count 385 X10^3/uL (150-400); Red Blood Cell Count 3.31 X10^6/uL (4.5-5.9); Red Cell Distribution Width 15.2 % (11.6-14.8); White Blood Cell Count 17.7 X10^3/uL (4.5-11.0)
[2022-07-12 09:13] LABS: Albumin 3.6 g/dL (3.5-5.0); Albumin Globulin Ratio 0.9 (1.0-2.8); Alkaline Phosphatase 983 U/L (38-126); Aspartate Aminotransferase 410 IU/L (17-59); BUN Creatinine Ratio 22.5 (6-22); Bilirubin Total 9.2 mg/dL (0.2-1.3); Blood Urea Nitrogen 60 mg/dL (9-20); Calcium 8.7 mg/dL (8.4-10.2); Carbon Dioxide 16 mmol/L (22-32); Chloride 99 mmol/L (98-107); Creatine Kinase 745 U/L (55-170); Estimated Glomerular Filt Rate 24 mL/min (>60); Globulin 4.2 g/dL (1.7-4.1); Glucose 300 mg/dL (80-110); Potassium 4.5 mmol/L (3.4-5.1); Sodium 134 mmol/L (137-145); Total Protein 7.8 g/dL (6.3-8.2)
[2022-07-12 09:20] LABS: Alanine Aminotransferase 420 IU/L (<50); HEMOLYSIS 21 (0-50)
[2022-07-12 09:25] LABS: NT-proBNP (BNP-Adult 18+) 5870 pg/mL (<450); Troponin I 0.038 ng/mL (0.01-0.034)
[2022-07-12 09:29] LABS: Procalcitonin 16.2 ng/mL (<0.5)
[2022-07-12 09:35] LABS: Hemoglobin 9.4 g/dL (13.5-17.5)
[2022-07-12 09:36] LABS: Add Manual Diff / Slide Review YES; Hematocrit 29.3 % (41-53)
[2022-07-12] MEDS: SODIUM CHLORIDE 0.9% 1,000 ML 1000 ML IV (09:36)
[2022-07-12] MEDS: methylPREDNISolone 125 MG/2 ML VIAL IV (09:36)
[2022-07-12 09:38] LABS: Lipase 7467 U/L (23-300)
[2022-07-12 09:41] LABS: Lactate (Lactic Acid) 6.1 mmol/L (0.7-2.1)
--- NOTE | 2022-07-12 09:46 | DI.US.S_ITS ---
PROCEDURE: US ABDOMEN LIMITED INDICATIONS: ELEVATED LFTS, BILIRUBIN TECHNIQUE: Real-time focused scanning was performed of the Right Upper Quadrant, with image documentation. COMPARISON: None. FINDINGS: Limited exam given patient's inability to cooperate with exam. Liver is enlarged measuring 20 centimeters in diameter. There is diffuse increased echogenicity. No focal lesion or intrahepatic ductal dilation. Gallbladder not identified. Recommend clinical correlation with history for cholecystectomy. Common bile duct measures 10 millimeters. Proximal pancreas is unremarkable in appearance. IMPRESSION: Hepatomegaly with findings of hepatic steatosis. Gallbladder not identified. Common bile duct measures 10 millimeters. This may be within normal limits if patient has history of cholecystectomy. Recommend correlation with lab values to exclude obstruction. Dictated by: Jeffry Gilman D.O. on 07/12/2022 at 10:03 Approved by: Jeffry Gilman D.O. on 07/12/2022 at 10:06
[2022-07-12 09:50] LABS: Neutrophils Absolute Manual 16461 /uL (3000-5900); Total Cells Counted 100
[2022-07-12 09:51] LABS: Anisocytosis 1+
--- NOTE | 2022-07-12 09:52 | PC.NURSE ---
bipap 15/6 fio2 35 percent
[2022-07-12 09:59] LABS: HCO3 ABG 17 mmol/L (23-27); Oxygen Saturation ABG 97 % (95-100); PCO2 ABG 26.7 mmHg (35-45); PO2 ABG 92 mmHg (80-100); TCO2 ABG 17 mmol/L (23-27)
[2022-07-12 10:01] LABS: Fractionated Inspired Oxygen 35
[2022-07-12 10:03] LABS: Acetaminophen < 10 ug/mL (10-30); Ethanol (ETOH) < 10 mg/dL; Salicylate < 1.0 mg/dL (<20)
[2022-07-12 10:13] LABS: Ammonia (NH3) 24 umol/L (9-30)
[2022-07-12] MEDS: PIPERACILLIN/TAZO 4.5 GM in SODIUM CHLORIDE 0.9% 100 ML IV (10:21)
[2022-07-12] MEDS: LACTATED RINGERS 1224.7 ML IV (10:36)
[2022-07-12] MEDS: LIDOCAINE 2% (GLYDO) 6 ML GEL TOP (10:37)
[2022-07-12 10:43] LABS: Adenovirus Not Detected (Not Detect); B. parapertussis Not Detected (Not Detecte); Bordetella pertussis Not Detected (Not Detecte); Chlamydophila pneumoniae Not Detected (Not Detect); Coronavirus 229E Not Detected (Not Detect); Coronavirus HKU1 Not Detected (Not Detect); Coronavirus NL 63 Not Detected (Not Detect); Coronavirus OC43 Not Detected (Not Detect); Human Metapneumovirus Not Detected (Not Detect); Human Rhinovirus/Enterovirus Not Detected (Not Detect); Influenza A Not Detected (Not Detect); Influenza B Not Detected (Not Detect); Mycoplasma pneumoniae Not Detected (Not Detect); Parainfluenza Virus 1 Not Detected (Not Detect); Parainfluenza Virus 2 Not Detected (Not Detect); Parainfluenza Virus 3 Not Detected (Not Detect); Parainfluenza Virus 4 Not Detected (Not Detect); Respiratory Syncytial Virus Not Detected (Not Detect); SARS- CoV-2 Not Detected (Not Detecte)
--- NOTE | 2022-07-12 10:47 | DI.CT.S_ITS ---
PROCEDURE: CT CHEST ABD PEL W CON INDICATIONS: septic elevated bili, lipase and liver enzymes TECHNIQUE: After the administration of intravenous contrast, 5 mm thick sections acquired from the lung apices to the symphysis. 5 mm coronal and sagittal reformats were performed, with additional 7 mm MIP reformats through the lungs. For radiation dose reduction, the following was used: automated exposure control, adjustment of mA and/or kV according to patient size. COMPARISON: [facility], , US ABDOMEN LIMITED, 07/12/2022, 10:28. FINDINGS: Image quality: Excellent. CHEST: Lungs and pleura: Hypoventilatory changes with artifact from motion limiting evaluation. No focal consolidation identified. There is diffuse atelectasis most prominent at the posterior aspect of the lower lobes. There is a subpleural nodule measuring 6 millimeters of the right upper lobe (series 2, image 19). No pleural effusions or pneumothorax. Central and peripheral airways appear patent . Central airways are grossly patent. Mediastinum: Heart size is normal. Moderate to severe coronary vascular calcifications. No pericardial effusion. No mediastinal or hilar adenopathy by size criteria. Thoracic aorta and central pulmonary arteries are normal in size. Esophagus is normal in caliber. Small-moderate hiatal hernia. Chest wall: No axillary or supraclavicular adenopathy by size criteria. Thyroid gland demonstrates subcentimeter hypodensities.. ABDOMEN: Solid organs: The liver demonstrates a hypodensity within the posterior aspect of the right hepatic lobe measuring up to 4.9 x 4.0 centimeters on axial imaging. There is mild intrahepatic ductal dilation. Gallbladder is not identified likely surgically absent. Common bile duct is enlarged measuring 1.5 centimeters in diameter. Pancreas enhances normally with mild atrophy. No surrounding inflammation.. Spleen is normal in size and enhancement. No adrenal nodules. Kidneys demonstrate normal size and enhancement, without hydronephrosis. Peritoneum and bowel: Bowel loops demonstrate normal wall thickness and caliber. No free fluid or air. Nodes and vessels: No retroperitoneal or mesenteric adenopathy by size criteria. Aorta and inferior vena cava are normal in size. Diffuse vascular calcifications. Miscellaneous: Fat containing periumbilical hernia. PELVIS: Genitourinary: Bladder is decompressed with intraluminal Paz catheter. Miscellaneous: Fat containing inguinal hernia is. No adenopathy. Bones: No suspicious bony lesions. Diffuse age appropriate degenerative changes. Bilateral pars defects of L5 with grade 1 anterolisthesis of L5 on S1. No vertebral body compression fractures. IMPRESSION: Prominence of the common bile duct measuring up to 1.5 centimeters along with intrahepatic ductal dilation. Recommend correlation for obstruction. Nonspecific right hepatic lobe mass measuring 4.9 x 4.0 centimeters. Recommend liver MRI for further evaluation. 6 millimeter subpleural right upper lobe lung nodule. Consider follow-up CT in 1 year. Additional chronic findings as above. Dictated by: Jeffry Gilman D.O. on 07/12/2022 at 10:30 Approved by: Jeffry Gilman D.O. on 07/12/2022 at 10:44
[2022-07-12 11:01] LABS: Reflexed Lactate in 2 Hours Y
[2022-07-12 11:15] LABS: Bilirubin Urine UA 3+ (NEGATIVE); Glucose Urine UA NEGATIVE (Negative); Ketones Urine UA TRACE (NEGATIVE); Leukocyte Esterase Urine UA NEGATIVE (NEGATIVE); Nitrite Urine UA POSITIVE (Negative); Occult Blood Urine UA 3+ (Negative); Protein Urine UA 3+ (Negative); Specific Gravity Urine UA 1.025 (1.000-1.035)
[2022-07-12 11:18] LABS: Appearance Urine UA CLOUDY; Color Urine UA OTHER
[2022-07-12 11:19] LABS: Ictotest Urine Positive (Negative)
[2022-07-12 11:34] LABS: Amorphous Sediment Urine 3+; Bacteria Urine Occasional (0-1); Culture Indicated Urine Specimen Cultured; Mucus Urine 3+ (Negative); RBC Urine 5-10/HPF (0-5/HPF); Squamous Epithelial Cell Urine 0-1 /HPF (0-5/HPF); WBC Urine 5-10/HPF (0-5/HPF)
[2022-07-12 11:46] LABS: UR Morphine/Opiate cutoff 300 Negative (Negative); Ur Creatinine Normal (Normal); Ur Specific Gravity Normal (Normal); Urine Amphetamines Negative (Negative); Urine Barbiturates Negative (Negative); Urine Benzodiazepines Negative (Negative); Urine Cocaine Negative (Negative); Urine MDMA Negative (Negative); Urine Methadone Negative (Negative); Urine Methamphetamines Negative (Negative); Urine Oxycodone Negative (Negative); Urine Phencyclidine Negative (Negative); Urine Tetrahydrocannabinol Negative (Negative); Urine Tricyclic Antidepressant Negative (Negative); Urine pH Normal (Normal)
[2022-07-12] MEDS: KETOROLAC 30 MG/ML VIAL 15 MG IV (11:52)
[2022-07-12] MEDS: VANCOMYCIN 2,000 MG/400 ML PIGGYBACK 200 MG IV (11:56)
[2022-07-12] MEDS: NOREPINEPHRINE BITARTRATE/D5W 4 MG/250 ML PLAST..BAG 30 MG IV (12:32)
--- NOTE | 2022-07-12 12:33 | PC.NURSE ---
pt is not waking up.minimal response to name and sternal rub. BP 80's systolic. Dr. Ibarra aware. started on levophed. preparing for intubation and central line placement
[2022-07-12] MEDS: ETOMIDATE 2 MG/ML 10 ML VIAL 12.2 MG IV (12:51)
[2022-07-12] MEDS: propofoL 1,000 MG/100 ML VIAL 3.674 MG IV (13:06)
--- NOTE | 2022-07-12 13:16 | DI.RAD.S_ITS ---
PROCEDURE: XR CHEST 1V INDICATIONS: Flu like symptoms TECHNIQUE: One view of the chest was acquired. COMPARISON: [facility], CR, XR CHEST 1V, 07/12/2022, 8:48. FINDINGS: Surgical changes and devices: Right chest wall port a catheter with the tip overlying the expected location of the superior vena cava. Endotracheal tube is noted with the tip approximately 1.7 centimeters from the jami. Overlying EKG wires. Lungs and pleura: Lungs are clear. No pleural effusions or pneumothorax. Mediastinum: Mediastinal contours appear normal. Heart size is normal. Bones and chest wall: No suspicious bony lesions. Overlying soft tissues appear unremarkable. IMPRESSION: Endotracheal tube with the tip approximately 1.7 centimeters from the jami. Right chest wall port a catheter with the tip overlying the expected location of the superior vena cava. No acute cardiopulmonary abnormality identified. Dictated by: Jeffry Gilamn D.O. on 07/12/2022 at 12:59 Approved by: Jeffry Gilman D.O. on 07/12/2022 at 13:01
[2022-07-12] MEDS: SUCCINYLCHOLINE 200 MG/10 ML VIAL 75 MG IV (13:17)
[2022-07-12 13:22] LABS: Lactate (Lactic Acid) 6.1 mmol/L (0.7-2.1)
[2022-07-12 13:23] LABS: Troponin I 0.049 ng/mL (0.01-0.034)
[2022-07-12] MEDS: VASOPRESSIN 40 UNIT in SODIUM CHLORIDE 0.9% 100 ML 4.5 UNIT IV (13:33)
[2022-07-12] MEDS: fentaNYL 1,000 MCG in DEXTROSE 5% IN WATER 230 ML 21.432 MCG IV (14:00)
[2022-07-12 14:09] LABS: pH ABG 7.23 (7.35-7.45)
[2022-07-12 14:10] LABS: Fractionated Inspired Oxygen 50; HCO3 ABG 15 mmol/L (23-27); Oxygen Saturation ABG 94 % (95-100); PCO2 ABG 34.6 mmHg (35-45); PO2 ABG 84 mmHg (80-100); TCO2 ABG 16 mmol/L (23-27)
--- NOTE | 2022-07-12 14:43 | PC.NURSE ---
intubated patient with an 8.0 OETT to the right lipo with glidescope per Dr. Arreguin. Right triple lumen cvp placed by dr. arreguin. excellent blood retun all 3 lumens . placement confirmed by auscultation
[2022-07-12] MEDS: LACTATED RINGERS 1,000 ML 200 ML IV (14:48)
[2022-07-12 14:53] LABS: Reflexed Lactate in 2 Hours Y
--- NOTE | 2022-07-12 15:17 | PC.NURSE ---
Pt accepted to [facility] CCU under the care of Dr. Wild. [facility] and [facility] both have ETA greater than 1930 this evening which is unacceptable delay and could result in further deterioration of pt. [facility] called w/ ETA 25 min. Daughter aware and verbalized agreement with plan of care. Linus MG [employer] Supervisor at [facility] updated.
[2022-07-12] MEDS: NOREPINEPHRINE BITARTRATE/D5W 4 MG/250 ML PLAST..BAG 150 MG IV (15:34)
[2022-07-12 15:38] LABS: Albumin Globulin Ratio 0.9 (1.0-2.8); Alkaline Phosphatase 599 U/L (38-126); Aspartate Aminotransferase 466 IU/L (17-59); Blood Urea Nitrogen 58 mg/dL (9-20); Calcium 7.5 mg/dL (8.4-10.2); Carbon Dioxide 10 mmol/L (22-32); Chloride 100 mmol/L (98-107); Estimated Glomerular Filt Rate 20 mL/min (>60); Globulin 3.2 g/dL (1.7-4.1); Glucose 315 mg/dL (80-110); HEMOLYSIS 38 (0-50); Potassium 5.1 mmol/L (3.4-5.1); Sodium 131 mmol/L (137-145); Total Protein 6.2 g/dL (6.3-8.2)
[2022-07-12 15:44] LABS: Alanine Aminotransferase 399 IU/L (<50)
[2022-07-12 15:50] LABS: Troponin I 0.048 ng/mL (0.01-0.034)
[2022-07-12 15:52] LABS: Lactate (Lactic Acid) 6.2 mmol/L (0.7-2.1)
--- NOTE | 2022-07-12 16:29 | PC.NURSE ---
daughter updated on on all care involved with dad. verbalized an understanding. pt transferred to [facility] on vent. and pressors. stable upon transfer.
[2022-07-12 17:19] LABS: Reflexed Lactate in 2 Hours Y
[2022-07-12 19:52] LABS: Acinetobacter calcoa-baumannii Not Detected (Not Detect); Bacteroides fragilis Not Detected (Not Detect); Enterobacter cloacae complex Not Detected (Not Detect); Enterobacterales DETECTED (Not Detect); Enterococcus faecalis Not Detected (Not Detect); Enterococcus faecium Not Detected (Not Detect); Listeria monocytogenes Not Detected (Not Detect); Staphylococcus epidermidis Not Detected (Not Detect); Staphylococcus lugdunensis Not Detected (Not Detect); Staphylococcus species Not Detected (Not Detect); Streptococcus agalactiae (Gr B Not Detected (Not Detect); Streptococcus pneumonia Not Detected (Not Detect); Streptococcus pyogenes (Gr A) Not Detected (Not Detect); Streptococcus species Not Detected (Not Detect)
[2022-07-12 19:53] LABS: Candida albicans Not Detected (Not Detect); Candida auris Not Detected (Not Detect); Candida glabrata Not Detected (Not Detect); Candida krusei Not Detected (Not Detect); Candida parapsilosis Not Detected (Not Detect); Candida tropicalis Not Detected (Not Detect); Cryptococcus neoformans/gatti Not Detected (Not Detect); Haemophilus influenzae Not Detected (Not Detect); Klebsiella aerogenes Not Detected (Not Detect); Neisseria meningitidis Not Detected (Not Detect); Proteus species Not Detected (Not Detect); Pseudomonas aeruginosa Not Detected (Not Detect); Salmonella species Not Detected (Not Detect); Serratia marcescens Not Detected (Not Detect); Stenotrophomonas maltophilia Not Detected (Not Detect)
== END 2022-07-12 16:25 | disposition short-term general hospital (02) ==
PROVIDERS: Emergency Provider Emergency Medicine; PCP Family Medicine
DX: K80.50 Calculus of bile duct without cholangitis or cholecystitis without obstruction (principal); A41.9 Sepsis, unspecified organism; K85.90 Acute pancreatitis without necrosis or infection, unspecified; N39.0 Urinary tract infection, site not specified; R41.0 Disorientation, unspecified; Z79.899 Other long term (current) drug therapy; Z20.822 Contact with and (suspected) exposure to COVID-19
CPT/HCPCS: 31500; 36415; 36569; 36600; 70450; 71045; 71260; 74177; 76705; 80053; 80305; 80320; 80329; 81001; 82140; 82550; 82805; 83605; 83690; 83880; 84145; 84484; 85007; 85025; 85610; 85730; 87040; 87086; 87154; 87186; 87633; 93005; 93010; 94640; 94660; 94799; 96361; 96365; 96366; 96367; 96368; 96375; 99285; 99291; 99292; G0480; J0330; J1885; J2543; J2704; J2930; J3010; Q9967

== ENCOUNTER → 2022-07-25 09:35 | Outpatient (CLI) | payer MEDICARE, SELFPAY ==
[2022-07-12 15:10] VITALS: PULSE 71; RESP 25; O2SAT 95
[2022-07-25 10:56] LABS: Add Manual Diff / Slide Review NO; Basophils Absolute Auto 100 /uL (0-100); Basophils Percent Auto 0.9 % (0-2); Eosinophils Absolute Auto 100 /uL (0-450); Eosinophils Percent Auto 1.5 % (2-4); Hematocrit 26.8 % (41-53); Hemoglobin 8.7 g/dL (13.5-17.5); Lymphocytes Absolute Auto 900 /uL (1100-4500); Lymphocytes Percent Auto 9.2 % (25-40); Mean Corpuscular HGB Conc 32.3 % (30-36); Mean Corpuscular Hemoglobin 27.9 PG (26-34); Mean Corpuscular Volume 86.4 fL (80-100); Monocytes Absolute Auto 800 /uL (0-900); Monocytes Percent Auto 7.7 % (3-14); Neutrophils Absolute Auto 8200 /uL (1500-7000); Neutrophils Percent Auto 80.7 % (50-75); Platelet Count 462 X10^3/uL (150-400); Red Cell Distribution Width 15.5 % (11.6-14.8); White Blood Cell Count 10.2 X10^3/uL (4.5-11.0)
[2022-07-25 11:21] LABS: Alanine Aminotransferase 47 IU/L (<50); Albumin 3.2 g/dL (3.5-5.0); Alkaline Phosphatase 219 U/L (38-126); Aspartate Aminotransferase 26 IU/L (17-59); Bilirubin Total 1.1 mg/dL (0.2-1.3); Blood Urea Nitrogen 45 mg/dL (9-20); Calcium 8.3 mg/dL (8.4-10.2); Carbon Dioxide 21 mmol/L (22-32); Chloride 101 mmol/L (98-107); Estimated Glomerular Filt Rate 31 mL/min (>60); Globulin 3.3 g/dL (1.7-4.1); Glucose 159 mg/dL (80-110); HEMOLYSIS < 15 (0-50); Potassium 5.2 mmol/L (3.4-5.1); Sodium 137 mmol/L (137-145); Total Protein 6.5 g/dL (6.3-8.2)
[2022-07-26 05:25] LABS: Fructosamine 285 umol/L (0-285)
== END ==
PROVIDERS: PCP Family Medicine; Referring Provider Nurse Practitioner Family; Visit Provider Nurse Practitioner Family
DX: K80.50 Calculus of bile duct without cholangitis or cholecystitis without obstruction (principal); E11.29 Type 2 diabetes mellitus with other diabetic kidney complication; K85.90 Acute pancreatitis without necrosis or infection, unspecified; E11.42 Type 2 diabetes mellitus with diabetic polyneuropathy; R80.9 Proteinuria, unspecified
CPT/HCPCS: 36415; 80053; 82985; 85025

== ENCOUNTER → 2022-07-30 15:36 | Outpatient (CLI) | payer MEDICARE, SELFPAY ==
[2022-07-12 15:10] VITALS: PULSE 71; RESP 25; O2SAT 95
[2022-07-30 17:16] LABS: Hematocrit 25.9 % (41-53); Hemoglobin 8.6 g/dL (13.5-17.5); Mean Corpuscular HGB Conc 33.3 % (30-36); Mean Corpuscular Hemoglobin 28.7 PG (26-34); Mean Corpuscular Volume 86.2 fL (80-100); Platelet Count 474 X10^3/uL (150-400); Red Cell Distribution Width 15.6 % (11.6-14.8); Reticulocyte Count, Percent 2.7 % (0.9-2.6); White Blood Cell Count 6.8 X10^3/uL (4.5-11.0)
[2022-07-30 17:29] LABS: Magnesium 1.7 mg/dL (1.6-2.3)
[2022-07-30 17:30] LABS: Alanine Aminotransferase 23 IU/L (<50); Albumin 3.3 g/dL (3.5-5.0); Alkaline Phosphatase 150 U/L (38-126); Aspartate Aminotransferase 20 IU/L (17-59); BUN Creatinine Ratio 14.3 (6-22); Bilirubin Total 0.8 mg/dL (0.2-1.3); Blood Urea Nitrogen 30 mg/dL (9-20); Calcium 7.9 mg/dL (8.4-10.2); Carbon Dioxide 22 mmol/L (22-32); Chloride 100 mmol/L (98-107); Estimated Glomerular Filt Rate 32 mL/min (>60); Globulin 3.4 g/dL (1.7-4.1); Glucose 104 mg/dL (80-110); HEMOLYSIS < 15 (0-50); Potassium 4.4 mmol/L (3.4-5.1); Sodium 135 mmol/L (137-145); Total Protein 6.7 g/dL (6.3-8.2)
[2022-07-30 17:38] LABS: NT-proBNP (BNP-Adult 18+) 2620 pg/mL (<450)
[2022-07-30 17:39] LABS: HEMOLYSIS < 15 (0-50); Iron 43 ug/dL (49-181)
[2022-07-30 17:49] LABS: Percent Iron Saturation 17 % (20-50); Total Iron Binding Capacity 249 ug/dL (261-462); Transferrin 164 mg/dL (206-381)
[2022-07-30 18:02] LABS: Ferritin 180 ng/mL (18-464)
[2022-07-30 18:34] LABS: Folate 13.9 ng/mL (2.76-20.0); Vitamin B12 543 pg/mL (239-931)
== END ==
PROVIDERS: Internal Medicine Advanced Heart Failure and Transplant Cardiology; PCP Family Medicine; Referring Provider Nurse Practitioner Family; Visit Provider Nurse Practitioner Family
DX: I50.33 Acute on chronic diastolic (congestive) heart failure (principal); E78.5 Hyperlipidemia, unspecified; D64.9 Anemia, unspecified; I10 Essential (primary) hypertension; Z79.899 Other long term (current) drug therapy
CPT/HCPCS: 36415; 80053; 82607; 82728; 82746; 83540; 83550; 83735; 83880; 85027; 85045

== ENCOUNTER → 2022-08-08 08:58 | Outpatient (CLI) | payer MEDICARE, SELFPAY ==
[2022-07-12 15:10] VITALS: PULSE 71; RESP 25; O2SAT 95
[2022-08-09 08:29] LABS: Fructosamine 280 umol/L (0-285)
== END ==
PROVIDERS: PCP Family Medicine; Referring Provider Family Medicine; Visit Provider Family Medicine
DX: E11.42 Type 2 diabetes mellitus with diabetic polyneuropathy (principal)
CPT/HCPCS: 36415; 82985

== ENCOUNTER → 2022-09-23 11:07 | Outpatient (CLI) | payer MEDICARE, SELFPAY ==
[2022-07-12 15:10] VITALS: PULSE 71; RESP 25; O2SAT 95
[2022-09-23 12:56] LABS: Add Manual Diff / Slide Review NO; Basophils Absolute Auto 100 /uL (0-100); Eosinophils Absolute Auto 200 /uL (0-450); Eosinophils Percent Auto 2.7 % (2-4); Hematocrit 34.6 % (41-53); Hemoglobin 11.7 g/dL (13.5-17.5); Lymphocytes Absolute Auto 1400 /uL (1100-4500); Lymphocytes Percent Auto 18.5 % (25-40); Mean Corpuscular HGB Conc 33.8 % (30-36); Mean Corpuscular Hemoglobin 28.9 PG (26-34); Mean Corpuscular Volume 85.4 fL (80-100); Monocytes Absolute Auto 600 /uL (0-900); Neutrophils Absolute Auto 5100 /uL (1500-7000); Neutrophils Percent Auto 69.8 % (50-75); Platelet Count 307 X10^3/uL (150-400); Red Blood Cell Count 4.05 X10^6/uL (4.5-5.9); Red Cell Distribution Width 14.3 % (11.6-14.8); White Blood Cell Count 7.3 X10^3/uL (4.5-11.0)
[2022-09-23 15:53] LABS: Creatinine Urine Random 174.6 mg/dL
[2022-09-23 17:52] LABS: Microalbumi Creatinin Ratio Ur 443.8 ug/mg CR (<30); Microalbumin Urine Random 77.5 mg/dL (0-1.6)
[2022-09-24 04:24] LABS: x Labcorp Estim. Avg Glu (eAG) 171 mg/dL (.); x Labcorp Hemoglobin A1c 7.6 % (4.8-5.6)
== END ==
PROVIDERS: PCP Family Medicine; Referring Provider Family Medicine; Visit Provider Family Medicine
DX: E11.29 Type 2 diabetes mellitus with other diabetic kidney complication (principal); E66.9 Obesity, unspecified; N18.30 Chronic kidney disease, stage 3 unspecified; R80.9 Proteinuria, unspecified
CPT/HCPCS: 36415; 82043; 82570; 83036; 85025

== ENCOUNTER 2022-12-03 18:27 | Emergency (ER) | payer MEDICARE, SELFPAY ==
[2022-07-12 15:10] VITALS: PULSE 71; RESP 25; O2SAT 95
[2022-12-03] VITALS (13 sets, daily range): BP systolic 159–206; BP diastolic 77–103; PULSE 63–81; RESP 20; TEMP 36.3; O2SAT 84–97; BMI 29.1
--- NOTE | 2022-12-03 18:47 | DI.US.S_ITS ---
PROCEDURE: US ABDOMEN LIMITED INDICATIONS: Painless jaundice TECHNIQUE: Real-time focused scanning was performed of the abdomen, with image documentation. COMPARISON: [facility], CT, CT ABDOMEN PELVIS WITHOUT CONTRAST, 08/20/2022, 11:20. [facility], CR, XR ERCP BILIARY AND PANCREATIC, 09/16/2022, 11:12. [facility], MR, MR ABDOMEN LIVER PROTOCOL, 09/23/2022, 9:50. [facility], US, US ABDOMEN LIMITED, 07/12/2022, 10:28. FINDINGS: The liver demonstrates mildly increased size and mildly increased echogenicity. The biliary ducts are dilated within the liver. No focally suspicious liver lesion is seen. (The previously seen right hepatic mass is not seen on these ultrasound images.) The gallbladder is not seen. The common bile duct is enlarged at 19 mm. The pancreas is not seen. This study is limited by body habitus and bowel gas. IMPRESSION: Enlarged intrahepatic and extrahepatic biliary ductal system, which is clearly worse than on the prior MRCP. Please consider a follow-up MRCP. Dictated by: Alessandro Blackwell M.D. on 12/03/2022 at 18:29 Approved by: Alessandro Blackwell M.D. on 12/03/2022 at 18:32
--- NOTE | 2022-12-03 19:40 | DI.MRI.S_ITS ---
PROCEDURE: MR AB PANCREATIC/MRCP PROTOCOL INDICATIONS: Painless jaundice TECHNIQUE: Coronal HASTE through the abdomen, axial 2-D FLASH in- and [id number], and breath-hold T2 FSE with fat saturation through the biliary system and pancreas. Oblique coronal and axial thin-slice HASTE, radial thick-slab HASTE centered on the extrahepatic bile ducts. Intravenous secretin: Not requested. COMPARISON: [facility], CR, XR ERCP BILIARY AND PANCREATIC, 09/16/2022, 11:12. [facility], US, US ABDOMEN LIMITED, 12/03/2022, 18:55. [facility], CT, CT ABDOMEN PELVIS WITHOUT CONTRAST, 08/20/2022, 11:20. [facility], MR, MR ABDOMEN LIVER PROTOCOL, 09/23/2022, 9:50. FINDINGS: Image quality: Decreased due to breathing motion. Biliary system: There is severe intrahepatic biliary dilatation. Is has markedly progressed compared to the most recent MRI from 09/23/22. The extrahepatic common duct is not well seen and there is probably an abrupt tapering and obstructing stricture in the midportion. The gallbladder is present, decompressed, and the cystic duct is dilated. There is an enlarging multiloculated cystic mass dorsal to the pancreatic head and anterior to the IVC which may be a redundant common duct. Amorphous, mildly T2 hyperintense soft tissue in the wilda hepatis demonstrates restricted diffusion and may be adenopathy or mass. Pancreas: No pancreatic ductal dilatation. Normal contours. Several microcysts present throughout the glandular pancreas. Other solid organs: The liver contains a peripherally enhancing mass in the posterior right hepatic lobe measuring 2.9 cm, consistent with decreasing hepatic abscess. No definite new liver lesions given suboptimal resolution due to artifact. Adrenal glands, spleen, and kidneys are within normal limits. Nodes and vessels: No retroperitoneal or mesenteric adenopathy by size criteria. Aorta and inferior vena cava are normal in size. Bowel and peritoneum: Unenhanced bowel loops are normal in caliber. No free fluid. Lung bases: No basal pleural effusions. Heart size is normal. Bones and soft tissues: No ventral hernias. Bone marrow is of normal overall signal. IMPRESSION: 1. 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 2. Cystic mass dorsal within the wilda hepatis is nonspecific and may be a redundant duct, dilated side branch, or cystic adenopathy, although there is no intrinsic enhancement. 3. Decreasing size of right lobe liver abscess. 4. ERCP or percutaneous biliary drainage for decompression is recommended. Dictated by: Susannah Castellanos M.D. on 12/03/2022 at 22:03 Approved by: Susannah Castellanos M.D. on 12/03/2022 at 22:29
--- NOTE | 2022-12-03 19:47 | ED_ITS ---
HPI - Recheck/Abnormal Lab/Rx <Anil Jones, DO - Last Filed: 12/04/22 17:56> General Chief Complaint: Recheck/Abnormal Lab/Rx Stated Complaint: New onset Jaundice Time Seen by Provider: 12/03/22 18:46 Source: patient Mode of arrival: EMS History of Present Illness HPI narrative: Patient is a 76-year-old male who arrives by EMS for evaluation of jaundice. Patient states that he does not necessarily noticed that his skin or his eyes are yellow. It was his home health nurse today that noticed that his skin was a yellow color although he states that he had a doctor's visit earlier in the week with a director environmental who noticed that his skin was yellow. Several weeks ago he was admitted to an outside facility for having an ?infection? in his ?stomach? he stated that he was in the hospital for several days. Received antibiotics. No surgery although he did have a procedure dealing with his gallbladder. This does sound like an ERCP is he did have a stent placed that was subsequently removed. He is not having any abdominal pain. No nausea or vomiting. No fevers. No chest pain. No shortness of breath. Related Data Home Medications Medication Instructions Recorded Confirmed ResMed AirSense 10 CPAP #1 ea 04/14/18 10/06/22 loratadine 10 mg tablet (Claritin) 10 mg PO DAILY 04/16/18 10/06/22 cinnamon bark 500 mg capsule 1,000 mg PO DAILY 12/03/21 10/06/22 furosemide 20 mg tablet 20 mg PO DAILY PRN 07/25/22 10/06/22 lidocaine HCl 4 % topical liquid ea topical 07/25/22 10/06/22 roll-on (Aspercreme (lidocaine HCl)) pantoprazole 40 mg tablet,delayed 40 mg PO ONCE 08/08/22 10/06/22 release Previous Rx's Medication Instructions Recorded atorvastatin 10 mg tablet 10 mg PO DAILY #90 tabs 12/03/21 pramipexole 1 mg tablet See Rx Instructions .Route 03/01/22 .COMPLEX #90 tabs albuterol sulfate 90 mcg/actuation 1 - 2 inh inhalation Q4-6H PRN 04/16/22 aerosol inhaler shortness of breath or wheezing #8.5 grams gabapentin 300 mg capsule 900 mg (3 x 300 mg) PO BEDTIME 06/04/22 #270 caps blood sugar diagnostic (OneTouch #100 ea 08/08/22 Verio test strips) lancets #100 ea 08/08/22 carvedilol 25 mg tablet 25 mg PO Q12H #180 tabs 08/22/22 lancets 30 gauge (OneTouch Delica #100 ea 08/22/22 Plus Lancet) lisinopril 20 mg tablet 20 mg PO DAILY blood pressure #90 08/22/22 tabs metformin 1,000 mg tablet See Rx Instructions .Route BID 08/22/22 diabetes #180 tabs glimepiride 2 mg tablet 2 mg PO DAILY #90 tabs 10/06/22 Allergies Allergy/AdvReac Type Severity Reaction Status Date / Time No Known Drug Allergies Allergy Verified 10/06/22 08:37 Review of Systems <Anil Jones DO - Last Filed: 12/04/22 17:56> Review of Systems ROS Unobtainable: All systems reviewed & are unremarkable except as noted in HPI and below Patient History <Anil Jones DO - Last Filed: 12/04/22 17:56> Medical History CKD (chronic kidney disease) stage 3, GFR 30-59 ml/min COPD (chronic obstructive pulmonary disease) NGO (dyspnea on exertion) Medicare annual wellness visit, subsequent Type 2 diabetes mellitus with microalbuminuria, without long-term current use of insulin Peripheral autonomic 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 GERD (gastroesophageal reflux disease) Hyperlipidemia RLS (restless legs syndrome) Benign essential HTN Type 2 diabetes mellitus with diabetic polyneuropathy, without long-term current use of insulin Obstructive sleep apnea of adult (~12/2017) Social History marital status: details: lives in [place] lives independently: Yes caregiver/support person: Yes (he is a caregiver for his GIAN) housing: house Smoking Status: Former smoker Smoking Status: Former smoker alcohol intake frequency: holidays/special occasions only Substance Use Type: does not use Exam <Anil Jones DO - Last Filed: 12/04/22 17:56> Initial Vital Signs Initial Vital Signs: Vital Signs Temperature 97.3 F L 12/03/22 18:34 Pulse Rate 76 12/03/22 18:34 Respiratory Rate 20 12/03/22 18:34 Blood Pressure 182/78 H 12/03/22 18:34 Pulse Oximetry 97 12/03/22 18:34 Oxygen Delivery Method Room Air 12/03/22 18:34 Const General: cooperative, comfortable and No ill appearing [facility] Head: normal to inspection and normocephalic Eyes Sclera: scleral abnormality bilaterally (Icterus) Resp Effort & Inspection: normal respiratory effort Cardio Rate: regular rate GI Inspection: normal to inspection and non-distended Palpation: soft and No tender Skin General: no rashes or lesions noted and jaundice Neuro General: patient alert, patient awake, patient oriented x3 and moves all extremities Extrem General: normal to inspection and capillary refill normal <Luly Huertas DO - Last Filed: 12/04/22 18:22> Initial Vital Signs Initial Vital Signs: Vital Signs Temperature 97.3 F L 12/03/22 18:34 Pulse Rate 76 12/03/22 18:34 Respiratory Rate 20 12/03/22 18:34 Blood Pressure 182/78 H 12/03/22 18:34 Pulse Oximetry 97 12/03/22 18:34 Oxygen Delivery Method Room Air 12/03/22 18:34 Scores <Anil Jones DO - Last Filed: 12/04/22 17:56> GCS Vera coma scale eye opening: Spontaneous Vera coma scale verbal response: Orientated [place] coma scale motor response: Obey commands [place] coma scale total score: 15 <Luly Huertas DO - Last Filed: 12/04/22 18:22> GCS [place] coma scale total score: 15 Course <Anil Jones DO - Last Filed: 12/04/22 17:56> Orders Ordered: Discontinued Medications Carvedilol (Carvedilol 12.5 Mg Tablet) 25 mg PO NOW ONE Stop: 12/03/22 21:35 Last Admin: 12/03/22 21:52 Dose: 25 mg Documented By: CYNDY Carvedilol (Carvedilol 12.5 Mg Tablet) 25 mg PO BID [facility] Last Admin: 12/04/22 09:09 Dose: Not Given Documented By: Admin: 12/04/22 08:40 Dose: 25 mg Documented By: CLIFF Furosemide (Furosemide 20 Mg Tablet) 20 mg PO NOW ONE Stop: 12/03/22 21:35 Last Admin: 12/03/22 21:52 Dose: 20 mg Documented By: CYNDY POTASSIUM CHLORIDE IN WATER (Potassium Cl 10 Meq/100 Ml Fern) 10 meq in 100 mls @ 100 mls/hr IV Q1H NATALIE Stop: 12/03/22 22:29 Last Infusion: 12/03/22 22:51 Dose: Infused Documented By: Admin: 12/03/22 21:51 Dose: 100 mls/hr Documented By: Infusion: 12/03/22 21:51 Dose: Infused Documented By: Admin: 12/03/22 20:51 Dose: 100 mls/hr Documented By: GC POTASSIUM CHLORIDE IN WATER (Potassium Cl 10 Meq/100 Ml Fern) 10 meq in 100 mls @ 100 mls/hr IV Q1H NATALIE Stop: 12/04/22 03:44 Last Infusion: 12/04/22 04:20 Dose: Infused Documented By: Admin: 12/04/22 03:19 Dose: 100 mls/hr Documented By: Infusion: 12/04/22 03:10 Dose: Infused Documented By: Admin: 12/04/22 02:02 Dose: 100 mls/hr Documented By: CYNDY Potassium Chloride/Sodium Chloride (Ns With Kcl 20 Meq) 1,000 mls @ 125 mls/hr IV CONT NATALIE Last Infusion: 12/04/22 16:06 Dose: 0 mls/hr Documented By: Admin: 12/04/22 08:34 Dose: 125 mls/hr Documented By: CLIFF Lisinopril (Lisinopril 20 Mg Tablet) 20 mg PO NOW ONE Stop: 12/03/22 21:35 Last Admin: 12/03/22 21:52 Dose: 20 mg Documented By: CYNDY Lisinopril (Lisinopril 20 Mg Tablet) 20 mg PO DAILY [facility] Last Admin: 12/04/22 09:09 Dose: Not Given Documented By: Admin: 12/04/22 08:35 Dose: 20 mg Documented By: CLIFF Vital Signs Vital signs: Vital Signs - 8 hr 12/04/22 10:30 12/04/22 10:37 12/04/22 10:37 Pulse Rate 65 62 Respiratory Rate 19 22 Blood Pressure 160/97 H Pulse Oximetry 97 12/04/22 11:00 12/04/22 11:00 12/04/22 11:30 Pulse Rate 62 60 Respiratory Rate 24 21 Blood Pressure 175/92 H Pulse Oximetry 98 95 12/04/22 11:31 12/04/22 11:45 12/04/22 11:45 Pulse Rate 65 60 Respiratory Rate 22 22 Blood Pressure 189/76 H Pulse Oximetry 96 96 12/04/22 12:00 12/04/22 12:00 12/04/22 12:30 Pulse Rate 59 L 59 L Respiratory Rate 20 20 Blood Pressure 198/81 H Pulse Oximetry 98 95 12/04/22 12:31 12/04/22 12:52 12/04/22 12:53 Pulse Rate 64 67 Respiratory Rate 22 19 Blood Pressure 174/75 H Pulse Oximetry 97 98 12/04/22 12:53 12/04/22 13:00 12/04/22 13:00 Pulse Rate 61 59 L Respiratory Rate 14 23 Blood Pressure 186/88 H Pulse Oximetry 98 96 12/04/22 13:30 12/04/22 13:31 12/04/22 13:31 Pulse Rate 68 69 Respiratory Rate 15 22 Blood Pressure 204/98 H Pulse Oximetry 97 96 12/04/22 13:43 12/04/22 13:43 12/04/22 14:00 Pulse Rate 74 67 Respiratory Rate 24 13 Blood Pressure 178/78 H Pulse Oximetry 98 97 12/04/22 14:01 12/04/22 14:01 12/04/22 14:30 Pulse Rate 71 72 Respiratory Rate 20 26 H Blood Pressure 185/103 H Pulse Oximetry 97 12/04/22 14:31 12/04/22 14:43 12/04/22 14:43 Pulse Rate 72 70 Respiratory Rate 22 22 Blood Pressure 208/83 H Pulse Oximetry 97 12/04/22 15:00 12/04/22 15:01 12/04/22 15:01 Pulse Rate 71 68 Respiratory Rate 15 15 Blood Pressure 186/101 H Pulse Oximetry 98 97 12/04/22 15:30 12/04/22 16:00 Pulse Rate 71 72 Respiratory Rate 20 20 Blood Pressure 179/101 H Pulse Oximetry 97 97 <Luly Huertas, - Last Filed: 12/04/22 18:22> Orders Ordered: Discontinued Medications Carvedilol (Carvedilol 12.5 Mg Tablet) 25 mg PO NOW ONE Stop: 12/03/22 21:35 Last Admin: 12/03/22 21:52 Dose: 25 mg Documented By: CYNDY Carvedilol (Carvedilol 12.5 Mg Tablet) 25 mg PO BID [facility] Last Admin: 12/04/22 09:09 Dose: Not Given Documented By: Admin: 12/04/22 08:40 Dose: 25 mg Documented By: CLIFF Furosemide (Furosemide 20 Mg Tablet) 20 mg PO NOW ONE Stop: 12/03/22 21:35 Last Admin: 12/03/22 21:52 Dose: 20 mg Documented By: GC POTASSIUM CHLORIDE IN WATER (Potassium Cl 10 Meq/100 Ml Fern) 10 meq in 100 mls @ 100 mls/hr IV Q1H NATALIE Stop: 12/03/22 22:29 Last Infusion: 12/03/22 22:51 Dose: Infused Documented By: Admin: 12/03/22 21:51 Dose: 100 mls/hr Documented By: Infusion: 12/03/22 21:51 Dose: Infused Documented By: Admin: 12/03/22 20:51 Dose: 100 mls/hr Documented By: CYNDY POTASSIUM CHLORIDE IN WATER (Potassium Cl 10 Meq/100 Ml Fern) 10 meq in 100 mls @ 100 mls/hr IV Q1H NATALIE Stop: 12/04/22 03:44 Last Infusion: 12/04/22 04:20 Dose: Infused Documented By: Admin: 12/04/22 03:19 Dose: 100 mls/hr Documented By: Infusion: 12/04/22 03:10 Dose: Infused Documented By: Admin: 12/04/22 02:02 Dose: 100 mls/hr Documented By: CYNDY Potassium Chloride/Sodium Chloride (Ns With Kcl 20 Meq) 1,000 mls @ 125 mls/hr IV CONT NATALIE Last Infusion: 12/04/22 16:06 Dose: 0 mls/hr Documented By: Admin: 12/04/22 08:34 Dose: 125 mls/hr Documented By: CLIFF Lisinopril (Lisinopril 20 Mg Tablet) 20 mg PO NOW ONE Stop: 12/03/22 21:35 Last Admin: 12/03/22 21:52 Dose: 20 mg Documented By: CYNDY Lisinopril (Lisinopril 20 Mg Tablet) 20 mg PO DAILY [facility] Last Admin: 12/04/22 09:09 Dose: Not Given Documented By: Admin: 12/04/22 08:35 Dose: 20 mg Documented By: KF Vital Signs Vital signs: Vital Signs - 8 hr 12/04/22 10:30 12/04/22 10:37 12/04/22 10:37 Pulse Rate 65 62 Respiratory Rate 19 22 Blood Pressure 160/97 H Pulse Oximetry 97 12/04/22 11:00 12/04/22 11:00 12/04/22 11:30 Pulse Rate 62 60 Respiratory Rate 24 21 Blood Pressure 175/92 H Pulse Oximetry 98 95 12/04/22 11:31 12/04/22 11:45 12/04/22 11:45 Pulse Rate 65 60 Respiratory Rate 22 22 Blood Pressure 189/76 H Pulse Oximetry 96 96 12/04/22 12:00 12/04/22 12:00 12/04/22 12:30 Pulse Rate 59 L 59 L Respiratory Rate 20 20 Blood Pressure 198/81 H Pulse Oximetry 98 95 12/04/22 12:31 12/04/22 12:52 12/04/22 12:53 Pulse Rate 64 67 Respiratory Rate 22 19 Blood Pressure 174/75 H Pulse Oximetry 97 98 12/04/22 12:53 12/04/22 13:00 12/04/22 13:00 Pulse Rate 61 59 L Respiratory Rate 14 23 Blood Pressure 186/88 H Pulse Oximetry 98 96 12/04/22 13:30 12/04/22 13:31 12/04/22 13:31 Pulse Rate 68 69 Respiratory Rate 15 22 Blood Pressure 204/98 H Pulse Oximetry 97 96 12/04/22 13:43 12/04/22 13:43 12/04/22 14:00 Pulse Rate 74 67 Respiratory Rate 24 13 Blood Pressure 178/78 H Pulse Oximetry 98 97 12/04/22 14:01 12/04/22 14:01 12/04/22 14:30 Pulse Rate 71 72 Respiratory Rate 20 26 H Blood Pressure 185/103 H Pulse Oximetry 97 12/04/22 14:31 12/04/22 14:43 12/04/22 14:43 Pulse Rate 72 70 Respiratory Rate 22 22 Blood Pressure 208/83 H Pulse Oximetry 97 12/04/22 15:00 12/04/22 15:01 12/04/22 15:01 Pulse Rate 71 68 Respiratory Rate 15 15 Blood Pressure 186/101 H Pulse Oximetry 98 97 12/04/22 15:30 12/04/22 16:00 Pulse Rate 71 72 Respiratory Rate 20 20 Blood Pressure 179/101 H Pulse Oximetry 97 97 MDM - Recheck/Abnormal Lab/Rx <Anil JonesDO - Last Filed: 12/04/22 17:56> Medical Records Attestation: I reviewed the patient's medical records. Lab Data Attestation: I reviewed the patient's lab results. 12/04/22 07:15 12/04/22 07:15 Labs: Lab Results 12/03/22 12/03/22 12/03/22 Range/Units 19:38 19:51 21:07 WBC 7.6 (4.5-11.0) X10^3/uL RBC 2.97 L (4.5-5.9) X10^6/uL Hgb 8.6 L (13.5-17.5) g/dL Hct 25.0 L (41-53) % MCV 84.2 (80-100) fL MCH 28.8 (26-34) PG MCHC 34.2 (30-36) % RDW 16.6 H (11.6-14.8) % Plt Count 410 H (150-400) X10^3/uL Neut % (Auto) Not Reportable Lymph % (Auto) Not Reportable [place] % (Auto) Not Reportable Eos % (Auto) Not Reportable Baso % (Auto) Not Reportable Neut # (Auto) (3098-4334) /uL Lymph # (Auto) Not Reportable [place] # (Auto) Not Reportable Eos # (Auto) (0-450) /uL Baso # (Auto) Not Reportable Total Counted 100 Seg Neutrophils % 85.0 H (38-70) % Band Neutrophils % 1.0 L (3-7) % Lymphocytes % (Manual) 10.0 L (25-45) % Monocytes % (Manual) 4.0 (2-11) % Neutrophils # (Manual) 6536 H (9537-0276) /uL RBC Morphology See below Anisocytosis 1+ H Target Cells 2+ H Stomatocytes 2+ H PT 20.5 H (10.1-12.7) SECONDS INR 1.8 H (0.9-1.3) APTT 37 H (26-36) SECONDS Sodium 138 (137-145) mmol/L Potassium 2.7 L* (3.4-5.1) mmol/L Chloride 103 (98-107) mmol/L Carbon Dioxide 23 (22-32) mmol/L BUN 19 (9-20) mg/dL Creatinine 0.85 (0.66-1.25) mg/dL Estimated GFR > 60 (>60) mL/min BUN/Creatinine Ratio 22.4 H (6-22) Glucose 243 H (80-110) mg/dL Calcium 8.5 (8.4-10.2) mg/dL Magnesium (1.6-2.3) mg/dL Total Bilirubin 11.6 H (0.2-1.3) mg/dL Conjugated Bilirubin 6.2 H (0.0-0.3) md/dL Unconjugated Bilirubin 1.7 H (0.0-1.1) mg/dL AST 187 H (17-59) IU/L ALT 193 H (<50) IU/L Alkaline Phosphatase 1175 H (38-126) U/L Total Protein 7.4 (6.3-8.2) g/dL Albumin 3.4 L (3.5-5.0) g/dL Globulin 4.0 (1.7-4.1) g/dL Albumin/Globulin Ratio 0.9 L (1.0-2.8) Lipase 381 H (23-300) U/L Urine Color [place] Urine Appearance Clear Urine pH 6.5 (4.5-8.0) Ur Specific [place] 1.025 (1.000-1.035) Urine Protein 3+ H (Negative) Urine Glucose (UA) 1+ H (Negative) g/dL Urine Ketones Trace H (NEGATIVE) Urine Occult Blood Trace-intact (Negative) Urine Nitrate Negative (Negative) Urine Bilirubin 3+ H (NEGATIVE) Ur Bilirubin Confirm Positive H (Negative) Urine Urobilinogen 1.0 (0.2) E.U./dL Ur Leukocyte Esterase Negative (NEGATIVE) Urine RBC 1-5/hpf (0-5/HPF) Urine WBC 1-5/hpf (0-5/HPF) Ur Squamous Epith Cells 0-1 /hpf (0-5/HPF) Urine Bacteria Occasional (0-1) (None) Hyaline Casts 5-10/lpf (None) Urine Mucus 2+ H (Negative) Acetaminophen < 10 (10-30) ug/mL Ethyl Alcohol < 10 ( - 10) mg/dL 12/04/22 12/04/22 Range/Units 07:11 07:15 WBC 6.9 (4.5-11.0) X10^3/uL RBC 3.18 L (4.5-5.9) X10^6/uL Hgb 9.0 L (13.5-17.5) g/dL Hct 26.8 L (41-53) % MCV 84.1 (80-100) fL MCH 28.2 (26-34) PG MCHC 33.5 (30-36) % RDW 17.2 H (11.6-14.8) % Plt Count 430 H (150-400) X10^3/uL Neut % (Auto) 45.6 L Lymph % (Auto) 42.2 H [place] % (Auto) 9.9 Eos % (Auto) 1.2 L Baso % (Auto) 1.1 Neut # (Auto) 3200 (4805-7669) /uL Lymph # (Auto) 2900 [place] # (Auto) 700 Eos # (Auto) 100 (0-450) /uL Baso # (Auto) 100 Total Counted Seg Neutrophils % (38-70) % Band Neutrophils % (3-7) % Lymphocytes % (Manual) (25-45) % Monocytes % (Manual) (2-11) % Neutrophils # (Manual) (4002-4245) /uL RBC Morphology Anisocytosis Target Cells Stomatocytes PT (10.1-12.7) SECONDS INR (0.9-1.3) APTT (26-36) SECONDS Sodium 135 L (137-145) mmol/L Potassium 2.7 L* (3.4-5.1) mmol/L Chloride 103 (98-107) mmol/L Carbon Dioxide 21 L (22-32) mmol/L BUN 16 (9-20) mg/dL Creatinine 0.78 (0.66-1.25) mg/dL Estimated GFR > 60 (>60) mL/min BUN/Creatinine Ratio 20.5 (6-22) Glucose 313 H (80-110) mg/dL Calcium 8.4 (8.4-10.2) mg/dL Magnesium 1.6 (1.6-2.3) mg/dL Total Bilirubin 11.8 H (0.2-1.3) mg/dL Conjugated Bilirubin (0.0-0.3) md/dL Unconjugated Bilirubin (0.0-1.1) mg/dL AST 185 H (17-59) IU/L ALT 191 H (<50) IU/L Alkaline Phosphatase 1189 H (38-126) U/L Total Protein 7.1 (6.3-8.2) g/dL Albumin 3.3 L (3.5-5.0) g/dL Globulin 3.8 (1.7-4.1) g/dL Albumin/Globulin Ratio 0.9 L (1.0-2.8) Lipase 339 H (23-300) U/L Urine Color Urine Appearance Urine pH (4.5-8.0) Ur Specific [place] (1.000-1.035) Urine Protein (Negative) Urine Glucose (UA) (Negative) g/dL Urine Ketones (NEGATIVE) Urine Occult Blood (Negative) Urine Nitrate (Negative) Urine Bilirubin (NEGATIVE) Ur Bilirubin Confirm (Negative) Urine Urobilinogen (0.2) E.U./dL Ur Leukocyte Esterase (NEGATIVE) Urine RBC (0-5/HPF) Urine WBC (0-5/HPF) Ur Squamous Epith Cells (0-5/HPF) Urine Bacteria (None) Hyaline Casts (None) Urine Mucus (Negative) Acetaminophen (10-30) ug/mL Ethyl Alcohol ( - 10) mg/dL Imaging Data US - abdomen: Radiologist's Impression: PROCEDURE: US ABDOMEN LIMITED INDICATIONS: Painless jaundice TECHNIQUE: Real-time focused scanning was performed of the abdomen, with image documentation. COMPARISON: [facility], CT, CT ABDOMEN PELVIS WITHOUT CONTRAST, 08/20/2022, 11:20. [facility], CR, XR ERCP BILIARY AND PANCREATIC, 09/16/2022, 11:12. [facility], MR, MR ABDOMEN LIVER PROTOCOL, 09/23/2022, 9:50. [facility], US, US ABDOMEN LIMITED, 07/12/2022, 10:28. FINDINGS: The liver demonstrates mildly increased size and mildly increased echogenicity. The biliary ducts are dilated within the liver. No focally suspicious liver lesion is seen. (The previously seen right hepatic mass is not seen on these ultrasound images.) The gallbladder is not seen. The common bile duct is enlarged at 19 mm. The pancreas is not seen. This study is limited by body habitus and bowel gas. IMPRESSION: Enlarged intrahepatic and extrahepatic biliary ductal system, which is clearly worse than on the prior MRCP. Please consider a follow-up MRCP. MRCP: Radiologist's Impression: PROCEDURE: MR AB PANCREATIC/MRCP PROTOCOL INDICATIONS: Painless jaundice TECHNIQUE: Coronal HASTE through the abdomen, axial 2-D FLASH in- and [id number], and breath-hold T2 FSE with fat saturation through the biliary system and pancreas. Oblique coronal and axial thin-slice HASTE, radial thick-slab HASTE centered on the extrahepatic bile ducts. Intravenous secretin: Not requested. COMPARISON: [facility], CR, XR ERCP BILIARY AND PANCREATIC, 09/16/2022, 11:12. [facility], US, US ABDOMEN LIMITED, 12/03/2022, 18:55. [facility], CT, CT ABDOMEN PELVIS WITHOUT CONTRAST, 08/20/2022, 11:20. [facility], MR, MR ABDOMEN LIVER PROTOCOL, 09/23/2022, 9:50. FINDINGS: Image quality: Decreased due to breathing motion. Biliary system: There is severe intrahepatic biliary dilatation. Is has markedly progressed compared to the most recent MRI from 09/23/22. The extrahepatic common duct is not well seen and there is probably an abrupt tapering and obstructing stricture in the midportion. The gallbladder is present, decompressed, and the cystic duct is dilated. There is an enlarging multiloculated cystic mass dorsal to the pancreatic head and anterior to the IVC which may be a redundant common duct. Amorphous, mildly T2 hyperintense soft tissue in the wilda hepatis demonstrates restricted diffusion and may be adenopathy or mass. Pancreas: No pancreatic ductal dilatation. Normal contours. Several microcysts present throughout the glandular pancreas. Other solid organs: The liver contains a peripherally enhancing mass in the posterior right hepatic lobe measuring 2.9 cm, consistent with decreasing hepatic abscess. No definite new liver lesions given suboptimal resolution due to artifact. Adrenal glands, spleen, and kidneys are within normal limits. Nodes and vessels: No retroperitoneal or mesenteric adenopathy by size criteria. Aorta and inferior vena cava are normal in size. Bowel and peritoneum: Unenhanced bowel loops are normal in caliber. No free fluid. Lung bases: No basal pleural effusions. Heart size is normal. Bones and soft tissues: No ventral hernias. Bone marrow is of normal overall signal. IMPRESSION: 1. 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 2. Cystic mass dorsal within the wilda hepatis is nonspecific and may be a redundant duct, dilated side branch, or cystic adenopathy, although there is no intrinsic enhancement. 3. Decreasing size of right lobe liver abscess. 4. ERCP or percutaneous biliary drainage for decompression is recommended. MDM Narrative Medical decision making narrative: Patient presents today with painless jaundice. Was able to receive notes from his admission to [facility] in September of 2022. According to those records it appears that he was admitted to the hospital with choledocholithiasis. He did have an ERCP during his visit. He subsequently has had the stent removed. He is not currently on any antibiotics. Patient does have hyperbilirubinemia with jaundice. MRCP does show intrahepatic biliary dilation and also what appears to be stricture of the common bile duct. Patient does require further evaluation by GI and most likely another ERCP. I did discuss this with the patient. Patient was hypokalemic. Started replacement here in the emergency department. No indication for antibiotics as he is not having any fevers, no leukocytosis no abdominal pain. Patient has remained stable overnight. For continuity of care he would be best if the patient was transferred back to [facility]. They did not have any bed assignment overnight but thought they would potentially have bed assignment in the morning. Repeat labs for the morning were ordered. Care turned over to day provider to follow-up and disposition. <Luly Huertas, DO - Last Filed: 12/04/22 18:22> Lab Data Labs: Lab Results 12/03/22 12/03/22 12/03/22 Range/Units 19:38 19:51 21:07 WBC 7.6 (4.5-11.0) X10^3/uL RBC 2.97 L (4.5-5.9) X10^6/uL Hgb 8.6 L (13.5-17.5) g/dL Hct 25.0 L (41-53) % MCV 84.2 (80-100) fL MCH 28.8 (26-34) PG MCHC 34.2 (30-36) % RDW 16.6 H (11.6-14.8) % Plt Count 410 H (150-400) X10^3/uL Neut % (Auto) Not Reportable Lymph % (Auto) Not Reportable [place] % (Auto) Not Reportable Eos % (Auto) Not Reportable Baso % (Auto) Not Reportable Neut # (Auto) (0845-5494) /uL Lymph # (Auto) Not Reportable [place] # (Auto) Not Reportable Eos # (Auto) (0-450) /uL Baso # (Auto) Not Reportable Total Counted 100 Seg Neutrophils % 85.0 H (38-70) % Band Neutrophils % 1.0 L (3-7) % Lymphocytes % (Manual) 10.0 L (25-45) % Monocytes % (Manual) 4.0 (2-11) % Neutrophils # (Manual) 6536 H (2458-4429) /uL RBC Morphology See below Anisocytosis 1+ H Target Cells 2+ H Stomatocytes 2+ H PT 20.5 H (10.1-12.7) SECONDS INR 1.8 H (0.9-1.3) APTT 37 H (26-36) SECONDS Sodium 138 (137-145) mmol/L Potassium 2.7 L* (3.4-5.1) mmol/L Chloride 103 (98-107) mmol/L Carbon Dioxide 23 (22-32) mmol/L BUN 19 (9-20) mg/dL Creatinine 0.85 (0.66-1.25) mg/dL Estimated GFR > 60 (>60) mL/min BUN/Creatinine Ratio 22.4 H (6-22) Glucose 243 H (80-110) mg/dL Calcium 8.5 (8.4-10.2) mg/dL Magnesium (1.6-2.3) mg/dL Total Bilirubin 11.6 H (0.2-1.3) mg/dL Conjugated Bilirubin 6.2 H (0.0-0.3) md/dL Unconjugated Bilirubin 1.7 H (0.0-1.1) mg/dL AST 187 H (17-59) IU/L ALT 193 H (<50) IU/L Alkaline Phosphatase 1175 H (38-126) U/L Total Protein 7.4 (6.3-8.2) g/dL Albumin 3.4 L (3.5-5.0) g/dL Globulin 4.0 (1.7-4.1) g/dL Albumin/Globulin Ratio 0.9 L (1.0-2.8) Lipase 381 H (23-300) U/L Urine Color [place] Urine Appearance Clear Urine pH 6.5 (4.5-8.0) Ur Specific [place] 1.025 (1.000-1.035) Urine Protein 3+ H (Negative) Urine Glucose (UA) 1+ H (Negative) g/dL Urine Ketones Trace H (NEGATIVE) Urine Occult Blood Trace-intact (Negative) Urine Nitrate Negative (Negative) Urine Bilirubin 3+ H (NEGATIVE) Ur Bilirubin Confirm Positive H (Negative) Urine Urobilinogen 1.0 (0.2) E.U./dL Ur Leukocyte Esterase Negative (NEGATIVE) Urine RBC 1-5/hpf (0-5/HPF) Urine WBC 1-5/hpf (0-5/HPF) Ur Squamous Epith Cells 0-1 /hpf (0-5/HPF) Urine Bacteria Occasional (0-1) (None) Hyaline Casts 5-10/lpf (None) Urine Mucus 2+ H (Negative) Acetaminophen < 10 (10-30) ug/mL Ethyl Alcohol < 10 ( - 10) mg/dL 12/04/22 12/04/22 Range/Units 07:11 07:15 WBC 6.9 (4.5-11.0) X10^3/uL RBC 3.18 L (4.5-5.9) X10^6/uL Hgb 9.0 L (13.5-17.5) g/dL Hct 26.8 L (41-53) % MCV 84.1 (80-100) fL MCH 28.2 (26-34) PG MCHC 33.5 (30-36) % RDW 17.2 H (11.6-14.8) % Plt Count 430 H (150-400) X10^3/uL Neut % (Auto) 45.6 L Lymph % (Auto) 42.2 H [place] % (Auto) 9.9 Eos % (Auto) 1.2 L Baso % (Auto) 1.1 Neut # (Auto) 3200 (2214-9032) /uL Lymph # (Auto) 2900 [place] # (Auto) 700 Eos # (Auto) 100 (0-450) /uL Baso # (Auto) 100 Total Counted Seg Neutrophils % (38-70) % Band Neutrophils % (3-7) % Lymphocytes % (Manual) (25-45) % Monocytes % (Manual) (2-11) % Neutrophils # (Manual) (7854-3569) /uL RBC Morphology Anisocytosis Target Cells Stomatocytes PT (10.1-12.7) SECONDS INR (0.9-1.3) APTT (26-36) SECONDS Sodium 135 L (137-145) mmol/L Potassium 2.7 L* (3.4-5.1) mmol/L Chloride 103 (98-107) mmol/L Carbon Dioxide 21 L (22-32) mmol/L BUN 16 (9-20) mg/dL Creatinine 0.78 (0.66-1.25) mg/dL Estimated GFR > 60 (>60) mL/min BUN/Creatinine Ratio 20.5 (6-22) Glucose 313 H (80-110) mg/dL Calcium 8.4 (8.4-10.2) mg/dL Magnesium 1.6 (1.6-2.3) mg/dL Total Bilirubin 11.8 H (0.2-1.3) mg/dL Conjugated Bilirubin (0.0-0.3) md/dL Unconjugated Bilirubin (0.0-1.1) mg/dL AST 185 H (17-59) IU/L ALT 191 H (<50) IU/L Alkaline Phosphatase 1189 H (38-126) U/L Total Protein 7.1 (6.3-8.2) g/dL Albumin 3.3 L (3.5-5.0) g/dL Globulin 3.8 (1.7-4.1) g/dL Albumin/Globulin Ratio 0.9 L (1.0-2.8) Lipase 339 H (23-300) U/L Urine Color Urine Appearance Urine pH (4.5-8.0) Ur Specific [place] (1.000-1.035) Urine Protein (Negative) Urine Glucose (UA) (Negative) g/dL Urine Ketones (NEGATIVE) Urine Occult Blood (Negative) Urine Nitrate (Negative) Urine Bilirubin (NEGATIVE) Ur Bilirubin Confirm (Negative) Urine Urobilinogen (0.2) E.U./dL Ur Leukocyte Esterase (NEGATIVE) Urine RBC (0-5/HPF) Urine WBC (0-5/HPF) Ur Squamous Epith Cells (0-5/HPF) Urine Bacteria (None) Hyaline Casts (None) Urine Mucus (Negative) Acetaminophen (10-30) ug/mL Ethyl Alcohol ( - 10) mg/dL MDM Narrative Medical decision making narrative: Patient presents today with painless jaundice. Was able to receive notes from his admission to [facility] in September of 2022. According to those records it appears that he was admitted to the hospital with choledocholithiasis. He did have an ERCP during his visit. He subsequently has had the stent removed. He is not currently on any antibiotics. Patient does have hyperbilirubinemia with jaundice. MRCP does show intrahepatic biliary dilation and also what appears to be stricture of the common bile duct. Patient does require further evaluation by GI and most likely another ERCP. I did discuss this with the patient. Patient was hypokalemic. Started replacement here in the emergency department. No indication for antibiotics as he is not having any fevers, no leukocytosis no abdominal pain. Patient has remained stable overnight. For continuity of care he would be best if the patient was transferred back to [facility]. They did not have any bed assignment overnight but thought they would potentially have bed assignment in the morning. Repeat labs for the morning were ordered. Care turned over to day provider to follow-up and disposition. Dr. Huertas 8am- signed out from Dr. Jones's seen evaluated patient myself. He is ambulatory to the restroom has absolutely no complaints. He is obviously jaundiced no right upper quadrant pain or epigastric pain. Noted to be consistently hypertensive last night he was given his normal blood pressure meds which have been reordered morning. Awaiting to talk to [facility] for stricture. Intrahepatic and extrahepatic biliary ductal system are enlarged and clearly worse than on prior MRCP. Bilirubin is significantly elevated at 11 presents today with painless jaundice. Potassium remains low today despite 40 mEq K rider. Normal saline with potassium has been added magnesium being checked. EKG reviewed does not show ischemic changes, and he is not having any chest pain. 9:08ZULLY Hart at [facility], updated patient's symptoms test results reviewed chart from previously agrees that patient needs to be transferred over admit to hospitalist. Laura unable to accept due to bed status 11:40 Dr. Aishwarya ANDREA at [facility] agrees with transfer need to admit to hospitalist Dr. Cutler updated on patient's symptoms test results kindly accepts Discharge Plan Departure Patient Disposition: [facility] Clinical Impression: Hyperbilirubinemia, Jaundice, Common bile duct obstruction Prescriptions: No Action pramipexole 1 mg tablet See Rx Instructions .ROUTE .COMPLEX Qty: 90 1RF Hold Instructions: Home Medication placed on hold at Doctor's office Dose Instruction: TAKE 1 TABLET BY MOUTH AT BEDTIME Rx Instructions: TAKE 1 TABLET BY MOUTH AT BEDTIME gabapentin 300 mg capsule 900 mg PO BEDTIME Qty: 270 3RF lidocaine HCl [Aspercreme (lidocaine HCl)] 4 % liquid roll-on topical Hold Instructions: anemia Patient Comments: 07/25/22: pt states he has been using this on both legs for awhile. pantoprazole 40 mg tablet,delayed release (DR/EC) 40 mg PO ONCE Patient Comments: TAKE 1 TABLET BY MOUTH DAILY (DME) lancets Misc See Rx Instructions .Route Qty: 100 3RF Rx Instructions: As directed, 1-2 times a day as needed (DME) OneTouch Verio test strips Strip See Rx Instructions .Route Qty: 100 3RF Rx Instructions: As directed. 1-2 times a day, prn carvedilol 25 mg tablet 25 mg PO Q12H Qty: 180 3RF lisinopril 20 mg tablet 20 mg PO DAILY Qty: 90 3RF metformin 1,000 mg tablet See Rx Instructions .ROUTE BID Qty: 180 3RF Dose Instruction: TAKE 1 TABLET BY MOUTH TWICE DAILY Rx Instructions: TAKE 1 TABLET BY MOUTH twice a day; (DME) lancets [OneTouch Delica Plus Lancet] 30 gauge misc See Rx Instructions .Route Qty: 100 3RF Rx Instructions: As directed daily as needed for blood sugars. needs One Touch Verio cinnamon bark 500 mg capsule 1,000 mg PO DAILY atorvastatin 10 mg tablet 10 mg PO DAILY Qty: 90 3RF albuterol sulfate 90 mcg/actuation HFA aerosol inhaler 1 - 2 inh inhalation Q4-6H PRN (Reason: shortness of breath or wheezing) Qty: 8.5 11RF furosemide 20 mg tablet 20 mg PO DAILY PRN Hold Instructions: Home Medication placed on hold at Doctor's office glimepiride 2 mg tablet 2 mg PO DAILY Qty: 90 3RF Rx Instructions: must take with food (DME) ResMed AirSense 10 CPAP Qty: 1 Dose Instruction: As directed Patient Comments: Pressure: 7-12 cmH2O DME: [facility] Rx Instructions: As directed loratadine [Claritin] 10 mg tablet 10 mg PO DAILY Referrals: Saige Jones DO [Primary Care Provider] -
[2022-12-03 19:56] LABS: INR 1.8 (0.9-1.3); Prothrombin Time 20.5 SECONDS (10.1-12.7)
[2022-12-03 19:59] LABS: PTT Partial Thromboplastin Tim 37 SECONDS (26-36)
[2022-12-03 20:04] LABS: Acetaminophen < 10 ug/mL (10-30); Alanine Aminotransferase 193 IU/L (<50); Albumin 3.4 g/dL (3.5-5.0); Albumin Globulin Ratio 0.9 (1.0-2.8); Alkaline Phosphatase 1175 U/L (38-126); Aspartate Aminotransferase 187 IU/L (17-59); BUN Creatinine Ratio 22.4 (6-22); Bilirubin Conjugated 6.2 md/dL (0.0-0.3); Bilirubin Total 11.6 mg/dL (0.2-1.3); Bilirubin Unconjugated 1.7 mg/dL (0.0-1.1); Blood Urea Nitrogen 19 mg/dL (9-20); Calcium 8.5 mg/dL (8.4-10.2); Carbon Dioxide 23 mmol/L (22-32); Chloride 103 mmol/L (98-107); Estimated Glomerular Filt Rate > 60 mL/min (>60); Ethanol (ETOH) < 10 mg/dL; Glucose 243 mg/dL (80-110); HEMOLYSIS < 15 (0-50); Lipase 381 U/L (23-300); Sodium 138 mmol/L (137-145); Total Protein 7.4 g/dL (6.3-8.2)
[2022-12-03 20:11] LABS: Potassium 2.7 mmol/L (3.4-5.1)
[2022-12-03 20:24] LABS: Appearance Urine UA CLEAR; Bilirubin Urine UA 3+ (NEGATIVE); Glucose Urine UA 1+ g/dL (Negative); Ketones Urine UA TRACE (NEGATIVE); Leukocyte Esterase Urine UA NEGATIVE (NEGATIVE); Nitrite Urine UA NEGATIVE (Negative); Occult Blood Urine UA TRACE-INTACT (Negative); Protein Urine UA 3+ (Negative); Specific Gravity Urine UA 1.025 (1.000-1.035); pH Urine UA 6.5 (4.5-8.0)
[2022-12-03 20:26] LABS: Color Urine UA Orange
[2022-12-03 20:31] LABS: Bacteria Urine Occasional (0-1); Hyaline Casts Urine 5-10/LPF; Mucus Urine 2+ (Negative); RBC Urine 1-5/HPF (0-5/HPF); Squamous Epithelial Cell Urine 0-1 /HPF (0-5/HPF); WBC Urine 1-5/HPF (0-5/HPF)
[2022-12-03 20:33] LABS: Ictotest Urine Positive (Negative)
[2022-12-03] MEDS: POTASSIUM CHLORIDE IN WATER 10 MEQ/100 ML PIGGYBACK 100 MEQ IV ×2 (20:51→21:51)
[2022-12-03 21:18] LABS: Hemoglobin 8.6 g/dL (13.5-17.5); Mean Corpuscular HGB Conc 34.2 % (30-36); Mean Corpuscular Hemoglobin 28.8 PG (26-34); Mean Corpuscular Volume 84.2 fL (80-100); Platelet Count 410 X10^3/uL (150-400); Red Blood Cell Count 2.97 X10^6/uL (4.5-5.9); Red Cell Distribution Width 16.6 % (11.6-14.8); White Blood Cell Count 7.6 X10^3/uL (4.5-11.0)
[2022-12-03 21:22] LABS: Add Manual Diff / Slide Review YES
[2022-12-03 21:30] LABS: Anisocytosis 1+; Neutrophils Absolute Manual 6536 /uL (3000-5900); Total Cells Counted 100
[2022-12-03 21:31] LABS: Stomatocytes 2+; Target Cells 2+
[2022-12-03] MEDS: lisinopriL 20 MG TABLET PO (21:52)
[2022-12-03] MEDS: carvediloL 12.5 MG TABLET 25 MG PO (21:52)
[2022-12-03] MEDS: FUROSEMIDE 20 MG TABLET PO (21:52)
[2022-12-04] VITALS (59 sets, daily range): BP systolic 137–214; BP diastolic 65–123; PULSE 59–79; RESP 13–26; O2SAT 90–99
[2022-12-04] MEDS: POTASSIUM CHLORIDE IN WATER 10 MEQ/100 ML PIGGYBACK 100 MEQ IV ×2 (02:02→03:19)
[2022-12-04 07:38] LABS: Add Manual Diff / Slide Review NO; Basophils Absolute Auto 100 /uL (0-100); Basophils Percent Auto 1.1 % (0-2); Eosinophils Absolute Auto 100 /uL (0-450); Eosinophils Percent Auto 1.2 % (2-4); Hematocrit 26.8 % (41-53); Lymphocytes Absolute Auto 2900 /uL (1100-4500); Lymphocytes Percent Auto 42.2 % (25-40); Mean Corpuscular HGB Conc 33.5 % (30-36); Mean Corpuscular Hemoglobin 28.2 PG (26-34); Mean Corpuscular Volume 84.1 fL (80-100); Monocytes Absolute Auto 700 /uL (0-900); Monocytes Percent Auto 9.9 % (3-14); Neutrophils Absolute Auto 3200 /uL (1500-7000); Neutrophils Percent Auto 45.6 % (50-75); Platelet Count 430 X10^3/uL (150-400); Red Blood Cell Count 3.18 X10^6/uL (4.5-5.9); Red Cell Distribution Width 17.2 % (11.6-14.8); White Blood Cell Count 6.9 X10^3/uL (4.5-11.0)
[2022-12-04 07:43] LABS: Alanine Aminotransferase 191 IU/L (<50); Albumin 3.3 g/dL (3.5-5.0); Albumin Globulin Ratio 0.9 (1.0-2.8); Alkaline Phosphatase 1189 U/L (38-126); Aspartate Aminotransferase 185 IU/L (17-59); BUN Creatinine Ratio 20.5 (6-22); Bilirubin Total 11.8 mg/dL (0.2-1.3); Blood Urea Nitrogen 16 mg/dL (9-20); Calcium 8.4 mg/dL (8.4-10.2); Carbon Dioxide 21 mmol/L (22-32); Chloride 103 mmol/L (98-107); Estimated Glomerular Filt Rate > 60 mL/min (>60); Globulin 3.8 g/dL (1.7-4.1); Glucose 313 mg/dL (80-110); HEMOLYSIS < 15 (0-50); Lipase 339 U/L (23-300); Sodium 135 mmol/L (137-145); Total Protein 7.1 g/dL (6.3-8.2)
[2022-12-04 07:46] LABS: Potassium 2.7 mmol/L (3.4-5.1)
[2022-12-04 08:21] LABS: Magnesium 1.6 mg/dL (1.6-2.3)
--- NOTE | 2022-12-04 08:26 | CM.MNRNOTE ---
Addendum entered by Caroline Robles R.N. 12/04/22 10:41: note is a regular progress note, not CM note. Original Note: Pt awake, alert, denies pain, denies CP/SOB/dizziness. Dr. Huertas aware of pt's rpt low potassium and elevated BP. RT called for EKG. Pt updated on current POC. on monitoring equipment.
--- NOTE | 2022-12-04 08:33 | PC.NURSE ---
Dr. Huertas at bedside with pt
[2022-12-04] MEDS: KCL 20 MEQ IN NS 1,000 ML 125 MEQ IV (08:34)
[2022-12-04] MEDS: lisinopriL 20 MG TABLET PO (08:35)
[2022-12-04] MEDS: carvediloL 12.5 MG TABLET 25 MG PO (08:40)
--- NOTE | 2022-12-04 08:42 | PC.NURSE ---
Rt at bedside for EKG
--- NOTE | 2022-12-04 10:40 | PC.NURSE ---
family at bedside w/ patient
--- NOTE | 2022-12-04 12:04 | PC.NURSE ---
old lab draw site to Pedro ryder oozing, bleeding stops with light pressure. BP elevated. Dr. Huertas notified. no new orders.
--- NOTE | 2022-12-04 13:04 | PC.NURSE ---
daughter bob [phone], left for home in [place], requests call for updates
--- NOTE | 2022-12-04 14:57 | PC.NURSE ---
Dr. Huertas at bedside with patient
--- NOTE | 2022-12-04 15:22 | PC.NURSE ---
Pt up to BR, steady gait, no acute distress
--- NOTE | 2022-12-04 15:30 | PC.NURSE ---
report given to Allan MG at [facility], all questions answered.
--- NOTE | 2022-12-04 15:50 | PC.NURSE ---
Per brunilda Cooper for pt to eat; sandwich and sugar free snacks provided
--- NOTE | 2022-12-04 16:04 | PC.NURSE ---
report to [facility] at bedside
--- NOTE | 2022-12-04 16:08 | PC.NURSE ---
approximately 100mL remaining in NS +20Meq K bag, taken with [facility] for transport.
== END 2022-12-04 16:11 | disposition short-term general hospital (02) ==
PROVIDERS: Emergency Medicine; Emergency Provider Emergency Medicine; PCP Family Medicine
DX: K83.1 Obstruction of bile duct (principal); R17 Unspecified jaundice; E80.6 Other disorders of bilirubin metabolism; Z79.899 Other long term (current) drug therapy
CPT/HCPCS: 36415; 74183; 76705; 80048; 80053; 80076; 80320; 80329; 81001; 83690; 83735; 85007; 85025; 85610; 85730; 93005; 93010; 96360; 96361; 99284; A9579; G0480

== ENCOUNTER → 2022-12-29 10:12 | Outpatient (CLI) | payer MEDICARE, SELFPAY ==
[2022-07-12 15:10] VITALS: PULSE 71; RESP 25; O2SAT 95
[2022-12-29 10:50] LABS: Add Manual Diff / Slide Review NO; Basophils Absolute Auto 200 /uL (0-100); Basophils Percent Auto 1.1 % (0-2); Eosinophils Absolute Auto 0 /uL (0-450); Eosinophils Percent Auto 0.2 % (2-4); Hematocrit 33.8 % (41-53); Hemoglobin 11.3 g/dL (13.5-17.5); Lymphocytes Absolute Auto 1100 /uL (1100-4500); Lymphocytes Percent Auto 8.1 % (25-40); Mean Corpuscular HGB Conc 33.3 % (30-36); Mean Corpuscular Hemoglobin 28.8 PG (26-34); Mean Corpuscular Volume 86.3 fL (80-100); Monocytes Absolute Auto 800 /uL (0-900); Monocytes Percent Auto 5.7 % (3-14); Neutrophils Absolute Auto 11600 /uL (1500-7000); Neutrophils Percent Auto 84.9 % (50-75); Platelet Count 430 X10^3/uL (150-400); Red Blood Cell Count 3.91 X10^6/uL (4.5-5.9); Red Cell Distribution Width 16.3 % (11.6-14.8); White Blood Cell Count 13.6 X10^3/uL (4.5-11.0)
[2022-12-29 11:15] LABS: Alanine Aminotransferase 40 IU/L (<50); Albumin 3.6 g/dL (3.5-5.0); Alkaline Phosphatase 426 U/L (38-126); Aspartate Aminotransferase 37 IU/L (17-59); BUN Creatinine Ratio 22.1 (6-22); Bilirubin Direct 0.9 mg/dL (0.0-0.4); Bilirubin Total 1.5 mg/dL (0.2-1.3); Bilirubin Unconjugated 0.6 mg/dL (0.0-1.1); Blood Urea Nitrogen 27 mg/dL (9-20); Calcium 9.2 mg/dL (8.4-10.2); Carbon Dioxide 29 mmol/L (22-32); Chloride 99 mmol/L (98-107); Estimated Glomerular Filt Rate > 60 mL/min (>60); Globulin 3.6 g/dL (1.7-4.1); Glucose 236 mg/dL (80-110); HEMOLYSIS < 15 (0-50); Potassium 4.2 mmol/L (3.4-5.1); Sodium 135 mmol/L (137-145); Total Protein 7.2 g/dL (6.3-8.2)
[2022-12-30 10:34] LABS: Hemoglobin A1C% w Est Avg Glu 7.2 % (4.0-6.0)
== END ==
PROVIDERS: PCP Family Medicine; Referring Provider Family Medicine; Visit Provider Family Medicine
DX: N18.30 Chronic kidney disease, stage 3 unspecified (principal); E78.49 Other hyperlipidemia; E11.29 Type 2 diabetes mellitus with other diabetic kidney complication; I10 Essential (primary) hypertension; R80.9 Proteinuria, unspecified
CPT/HCPCS: 36415; 80053; 80076; 82248; 83036; 85025

== ENCOUNTER 2023-01-16 10:10 | Emergency (ER) | payer MEDICARE, SELFPAY ==
[2022-07-12 15:10] VITALS: PULSE 71; RESP 25; O2SAT 95
[2023-01-16] VITALS (14 sets, daily range): BP systolic 152–188; BP diastolic 76–88; PULSE 73–85; RESP 15–26; TEMP 36.1; O2SAT 94–98; BMI 28.0
[2023-01-16] MEDS: PANTOPRAZOLE 40 MG VIAL 80 MG IV (10:36)
[2023-01-16 10:47] LABS: Add Manual Diff / Slide Review NO; Basophils Absolute Auto 100 /uL (0-100); Basophils Percent Auto 0.8 % (0-2); Eosinophils Absolute Auto 300 /uL (0-450); Eosinophils Percent Auto 3.3 % (2-4); Hemoglobin 10.7 g/dL (13.5-17.5); Lymphocytes Absolute Auto 1100 /uL (1100-4500); Lymphocytes Percent Auto 11.8 % (25-40); Mean Corpuscular HGB Conc 33.4 % (30-36); Mean Corpuscular Hemoglobin 27.9 PG (26-34); Mean Corpuscular Volume 83.5 fL (80-100); Monocytes Absolute Auto 700 /uL (0-900); Monocytes Percent Auto 7.6 % (3-14); Neutrophils Absolute Auto 7100 /uL (1500-7000); Neutrophils Percent Auto 76.5 % (50-75); Platelet Count 349 X10^3/uL (150-400); Red Blood Cell Count 3.83 X10^6/uL (4.5-5.9); Red Cell Distribution Width 14.6 % (11.6-14.8); White Blood Cell Count 9.3 X10^3/uL (4.5-11.0)
[2023-01-16 10:58] LABS: INR 1.2 (0.9-1.3); Prothrombin Time 13.4 SECONDS (9.4-12.5)
[2023-01-16 11:00] LABS: Alanine Aminotransferase 25 IU/L (<50); Albumin 3.6 g/dL (3.5-5.0); Albumin Globulin Ratio 1.1 (1.0-2.8); Alkaline Phosphatase 369 U/L (38-126); Aspartate Aminotransferase 31 IU/L (17-59); BUN Creatinine Ratio 22.2 (6-22); Blood Urea Nitrogen 22 mg/dL (9-20); Carbon Dioxide 27 mmol/L (22-32); Chloride 104 mmol/L (98-107); Estimated Glomerular Filt Rate > 60 mL/min (>60); Globulin 3.4 g/dL (1.7-4.1); Glucose 209 mg/dL (80-110); HEMOLYSIS < 15 (0-50); PTT Partial Thromboplastin Tim 30 SECONDS (25.1-36.5); Potassium 3.1 mmol/L (3.4-5.1); Sodium 136 mmol/L (137-145)
--- NOTE | 2023-01-16 11:21 | ED_ITS ---
HPI - GI Bleed General Chief complaint: GI Bleed Stated complaint: BLOOD IN STOOL SENT BY PCP Time Seen by Provider: 01/16/23 10:37 Source: patient Mode of arrival: Wheelchair History of Present Illness HPI Narrative: Patient is a 77-year-old male with history of peripheral vascular disease, hyperlipidemia, diabetes, hypertension, presenting today with rectal bleeding. He reports that he had 2 episodes of bright red blood per rectum 1 last night morning. He felt weak he is abdominal pain. He is never had a colonoscopy. He was recently admitted and transferred over to [facility] where he had a biliary stent placed for choledocholithiasis. He says he was put on antibiotics stent was placed stent was removed stent was placed again. He is set to have it removed in February with billing. No fever or chills. No dizziness or lightheadedness. He quit taking his Plavix when he had his biliary stent but continues to take his aspirin. Related Data Home Medications Medication Instructions Recorded Confirmed ResMed AirSense 10 CPAP #1 ea 04/14/18 01/05/23 loratadine 10 mg tablet (Claritin) 10 mg PO DAILY 04/16/18 01/05/23 cinnamon bark 500 mg capsule 1,000 mg PO DAILY 12/03/21 01/05/23 furosemide 20 mg tablet 20 mg PO DAILY PRN 07/25/22 01/05/23 lidocaine HCl 4 % topical liquid ea topical 07/25/22 01/05/23 roll-on (Aspercreme (lidocaine HCl)) amlodipine 5 mg tablet 5 mg PO DAILY 01/05/23 01/05/23 aspirin 81 mg tablet,delayed 81 mg PO DAILY 01/05/23 01/05/23 release (Adult Low Dose Aspirin) carvedilol 25 mg tablet 37.5 mg PO BID 01/05/23 01/05/23 cefdinir 300 mg capsule mg PO BID 01/05/23 01/05/23 clopidogrel 75 mg tablet 75 mg PO DAILY 01/05/23 01/05/23 doxycycline monohydrate 100 mg 100 mg PO BID 01/05/23 01/05/23 capsule potassium chloride 10 mEq 10 meq PO DAILY 01/05/23 01/05/23 tablet,extended release Previous Rx's Medication Instructions Recorded atorvastatin 10 mg tablet 10 mg PO DAILY #90 tabs 10/25/22 albuterol sulfate 90 mcg/actuation 1 - 2 inh inhalation Q4-6H PRN 04/16/22 aerosol inhaler shortness of breath or wheezing #8.5 grams gabapentin 300 mg capsule 900 mg (3 x 300 mg) PO BEDTIME 06/04/22 #270 caps blood sugar diagnostic (OneTouch #100 ea 08/08/22 Verio test strips) lancets #100 ea 08/08/22 lisinopril 20 mg tablet 20 mg PO DAILY blood pressure #90 08/22/22 tabs metformin 1,000 mg tablet See Rx Instructions .Route BID 08/22/22 diabetes #180 tabs glimepiride 2 mg tablet 2 mg PO DAILY #90 tabs 10/06/22 blood sugar diagnostic (Blood #50 ea 12/29/22 Glucose Test strips) lancets 30 gauge (OneTouch Delica #100 ea 12/29/22 Plus Lancet) pantoprazole 40 mg tablet,delayed 40 mg PO ONCE #90 tabs 12/29/22 release famotidine 20 mg tablet 20 mg PO BID #180 tabs 01/05/23 peg 3350-electrolytes 236 240 ml PO Q10M #4,000 mL 01/16/23 gram-22.74 gram-6.74 gram-5.86 gram solution (Golytely) Allergies Allergy/AdvReac Type Severity Reaction Status Date / Time No Known Drug Allergies Allergy Verified 01/16/23 10:23 Patient History Medical History Peripheral vascular disease Right toe amputee CKD (chronic kidney disease) stage 3, GFR 30-59 ml/min COPD (chronic obstructive pulmonary disease) NGO (dyspnea on exertion) Medicare annual wellness visit, subsequent Type 2 diabetes mellitus with microalbuminuria, without long-term current use of insulin Peripheral autonomic 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 GERD (gastroesophageal reflux disease) Hyperlipidemia RLS (restless legs syndrome) Benign essential HTN Type 2 diabetes mellitus with diabetic polyneuropathy, without long-term current use of insulin Obstructive sleep apnea of adult (~12/2017) Social History marital status: details: lives in [place] lives independently: Yes caregiver/support person: Yes (he is a caregiver for his GIAN) housing: house Smoking Status: Former smoker Smoking Status: Former smoker alcohol intake frequency: holidays/special occasions only Substance Use Type: does not use Exam Initial Vital Signs Initial Vital Signs: Vital Signs Temperature 97.0 F L 01/16/23 10:12 Pulse Rate 85 01/16/23 10:12 Respiratory Rate 15 01/16/23 10:12 Blood Pressure 173/79 H 01/16/23 10:12 Pulse Oximetry 96 01/16/23 10:12 Oxygen Delivery Method Room Air 01/16/23 10:12 GENERAL: Alert well-appearing 69-year-old male and in no acute distress. HEENT: Head atraumatic,EOMI, pupils reactive, face symmetric, moist mucous membranes CARDIOVASCULAR: Regular rate and rhythm without murmurs, rubs or gallops. RESPIRATORY: Breath sounds equal bilaterally, no wheezes rales or rhonchi. ABDOMEN: Soft, nontender. Normoactive bowel sounds all 4 quadrants. No guarding or rebound. RECTAL: Hemoccult-positive no bright red blood no hemorrhoids EXTREMITIES: Normal range of motion, no clubbing or edema. Neurovascularly intact NEUROLOGICAL: Alert and oriented x4.Normal gait and speech. SKIN: Warm, dry, no laceration, no petechiae, no rashes or lesions. Course Orders Ordered: ED Orders 01/16/23 10:30 EKG-12 Lead Stat 01/16/23 11:22 CT abdomen pelvis w con Stat 01/16/23 12:48 Urine Microscopic Stat Discontinued Medications Ondansetron HCl (Ondansetron 4 Mg/2 Ml Inj) 4 mg IV NOW PRN PRN Reason: Nausea And Vomiting Ondansetron HCl (Ondansetron 4 Mg Odt) 4 mg SL NOW PRN PRN Reason: Nausea And Vomiting Pantoprazole Sodium (Pantoprazole 40 Mg Vial) 80 mg IV NOW ONE Stop: 01/16/23 10:24 Last Admin: 01/16/23 10:36 Dose: 80 mg Documented By: CTS Vital Signs Vital signs: Vital Signs - 8 hr 01/16/23 11:00 01/16/23 11:01 01/16/23 11:01 Pulse Rate 76 74 Respiratory Rate 23 26 H Blood Pressure 174/76 H Pulse Oximetry 95 95 01/16/23 11:30 01/16/23 11:30 01/16/23 12:02 Pulse Rate 75 83 Respiratory Rate 23 17 Blood Pressure 155/85 H Pulse Oximetry 98 97 01/16/23 12:03 01/16/23 12:03 01/16/23 12:30 Pulse Rate 83 Respiratory Rate 18 Blood Pressure 188/88 H 175/80 H Pulse Oximetry 96 01/16/23 12:30 01/16/23 12:44 01/16/23 12:44 Pulse Rate 75 83 Respiratory Rate 17 22 Blood Pressure 164/76 H Pulse Oximetry 97 94 01/16/23 13:00 01/16/23 13:01 01/16/23 13:01 Pulse Rate 75 76 Respiratory Rate 21 18 Blood Pressure 179/77 H Pulse Oximetry 95 95 01/16/23 13:30 01/16/23 13:30 Pulse Rate 73 Respiratory Rate 18 Blood Pressure 166/77 H Pulse Oximetry 95 MDM - GI Bleed Lab Data 01/16/23 03:12 01/16/23 03:12 Labs: Lab Results 01/16/23 01/16/23 Range/Units 03:12 12:48 WBC 9.3 (4.5-11.0) X10^3/uL RBC 3.83 L (4.5-5.9) X10^6/uL Hgb 10.7 L (13.5-17.5) g/dL Hct 32.0 L (41-53) % MCV 83.5 (80-100) fL MCH 27.9 (26-34) PG MCHC 33.4 (30-36) % RDW 14.6 (11.6-14.8) % Plt Count 349 (150-400) X10^3/uL Neut % (Auto) 76.5 H (50-75) % Lymph % (Auto) 11.8 L (25-40) % [place] % (Auto) 7.6 (3-14) % Eos % (Auto) 3.3 (2-4) % Baso % (Auto) 0.8 (0-2) % Neut # (Auto) 7100 H (3879-0385) /uL Lymph # (Auto) 1100 (4238-4537) /uL [place] # (Auto) 700 (0-900) /uL Eos # (Auto) 300 (0-450) /uL Baso # (Auto) 100 (0-100) /uL PT 13.4 H (9.4-12.5) SECONDS INR 1.2 (0.9-1.3) APTT 30 (25.1-36.5) SECONDS Sodium 136 L (137-145) mmol/L Potassium 3.1 L (3.4-5.1) mmol/L Chloride 104 (98-107) mmol/L Carbon Dioxide 27 (22-32) mmol/L BUN 22 H (9-20) mg/dL Creatinine 0.99 (0.66-1.25) mg/dL Estimated GFR > 60 (>60) mL/min BUN/Creatinine Ratio 22.2 H (6-22) Glucose 209 H (80-110) mg/dL Calcium 9.0 (8.4-10.2) mg/dL Total Bilirubin 1.0 (0.2-1.3) mg/dL AST 31 (17-59) IU/L ALT 25 (<50) IU/L Alkaline Phosphatase 369 H (38-126) U/L Total Protein 7.0 (6.3-8.2) g/dL Albumin 3.6 (3.5-5.0) g/dL Globulin 3.4 (1.7-4.1) g/dL Albumin/Globulin Ratio 1.1 (1.0-2.8) Urine RBC 0-1/hpf (0-5/HPF) Urine WBC 0-1/hpf (0-5/HPF) Ur Squamous Epith Cells 0-1 /hpf (0-5/HPF) Urine Bacteria None seen (None) Ur Culture Indicated? Cult not indicated Blood Type B Positive Antibody Screen Negative Urine Dip Bedside Urine Glucose Negative Bedside Urine Bilirubin - Negative Bedside Urine Ketone - Negative Urine Specific [place] 1.015 Bedside Urine Occult Blood +/- Bedside Urine pH 6.0 Bedside Urine Protein +++ 300 Bedside Urine Urobilinogen - Negative Bedside Urine Nitrite - Negative Bedside Urine Leukocytes - Negative Esterase Imaging Data CT scan - abdomen/pelvis: Radiologist's Impression: PROCEDURE: CT ABDOMEN PELVIS W CON INDICATIONS: rectal bleeding with biliary stent TECHNIQUE: After the administration of oral and IV contrast, axial sections were acquired from the lung bases to the pubic symphysis. Coronal and sagittal reformats were performed. For radiation dose reduction, the following was used: automated exposure control, adjustment of mA and/or kV according to patient size. COMPARISON: [facility], MR, MR AB PANCREATIC/MRCP PROTOCOL, 12/03/2022, 19:57. FINDINGS: Image quality: Excellent. Lung bases: Unremarkable. Heart: No significant findings. ABDOMEN: Liver: Stable 2.1 cm lesion in segment 6. Gallbladder: Gallbladder is either absent or decompressed. Biliary ducts: Intrahepatic biliary ducts present. There is pneumobilia, with some peripheral ductal dilation predominantly on the right side. Pancreas: Fat stranding at the pancreatic head. Spleen: Size is within normal limits. Adrenal Glands: No adrenal nodules. Kidneys and Ureters: No hydronephrosis. No solid mass. No complex renal cystic lesion which requires follow up. Stomach and Bowel: Abnormal thickening of the duodenal bulb (series 4, image 24). Surrounding cystic changes are present, not significantly changed from prior. Colonic diverticulosis without evidence of diverticulitis. Peritoneum: No abnormal intraperitoneal fluid. No free air. Ventral Wall: No hernia. Abdominal Nodes: Adenopathy about the wilda hepatis. Vessels: Aorta and inferior vena cava are normal in size. PELVIS: Pelvic Organs: Unremarkable. Bladder: Unremarkable. Pelvic Nodes: No enlarged lymph nodes. Miscellaneous: No inguinal hernias are seen. 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 IMPRESSION: No findings to explain the patient's rectal bleeding. Similar inflammatory changes centered about the duodenal bulb, with surrounding cystic change. Biliary stents are present, with pneumobilia, usually indicating patency. 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 Wilda hepatis lymphadenopathy is also present. Stable 2.1 cm right hepatic lesion. Dictated by: Herbert Umaña M.D. on 01/16/2023 at 11:51 ECG Data Interpretation: Normal sinus rhythm rate 81 FL interval 190 QRS [address] changes no T- wave inversions MDM Narrative Medical decision making narrative: Patient is a 73-year-old male recent history of biliary stent presenting today with rectal bleeding. He is hemodynamically stable no gross blood on exam but Hemoccult positive. Hemoglobin 10.7 hematocrit 32.0 previously 11.3 and 33.8. Overall stable he is had 2 episodes of bleeding. No further episodes of bleeding in the ED no significant gross blood on exam. CT does not show any abnormality. He is never had a colonoscopy. Had this time no need for admission but does need to have outpatient follow-up and colonoscopy. Discharge Plan Departure Patient Disposition: Home Clinical Impression: Rectal bleeding Instructions: DI for Rectal Bleeding Activity Restrictions/Additional Instructions: *You have been diagnosed with rectal bleeding *What to do: At this time you do need an outpatient colonoscopy. I recommend that you call general surgery to schedule 1. You may have 2 more episodes of bleeding but it really should slow down. However if it continues worsens you need to return to the ED *Continue to take medications as directed *Follow up with your primary care provider in 2-3 days or call [phone] Call [facility] to schedule colonoscopy *Return to ER if you should have persistent rectal bleeding dizziness lightheadedness passing out falls abdominal pain [or] any new, worsening or concerning symptoms Prescriptions: No Action gabapentin 300 mg capsule 900 mg PO BEDTIME Qty: 270 3RF lidocaine HCl [Aspercreme (lidocaine HCl)] 4 % liquid roll-on topical Hold Instructions: anemia Patient Comments: 07/25/22: pt states he has been using this on both legs for awhile. (DME) Blood Glucose Test Strip See Rx Instructions .Route Qty: 50 2RF Rx Instructions: Use 1-2x daily PRN to monitor blood sugar pantoprazole 40 mg tablet,delayed release (DR/EC) 40 mg PO ONCE Qty: 90 3RF Patient Comments: TAKE 1 TABLET BY MOUTH DAILY (DME) lancets [OneTouch Delica Plus Lancet] 30 gauge misc See Rx Instructions .Route Qty: 100 3RF Rx Instructions: Use to test blood glucose 1-2 times daily or as directed famotidine 20 mg tablet 20 mg PO BID Qty: 180 3RF peg 3350-electrolytes [Golytely] 236-22.74-6.74 -5.86 gram recon soln 240 ml PO Q10M Qty: 4000 0RF Rx Instructions: take as directed by Physician (DME) lancets Misc See Rx Instructions .Route Qty: 100 3RF Rx Instructions: As directed, 1-2 times a day as needed (DME) OneTouch Verio test strips Strip See Rx Instructions .Route Qty: 100 3RF Rx Instructions: As directed. 1-2 times a day, prn lisinopril 20 mg tablet 20 mg PO DAILY Qty: 90 3RF metformin 1,000 mg tablet See Rx Instructions .ROUTE BID Qty: 180 3RF Dose Instruction: TAKE 1 TABLET BY MOUTH TWICE DAILY Rx Instructions: TAKE 1 TABLET BY MOUTH twice a day; amlodipine 5 mg tablet 5 mg PO DAILY aspirin [Adult Low Dose Aspirin] 81 mg tablet,delayed release (DR/EC) 81 mg PO DAILY cefdinir 300 mg capsule PO BID clopidogrel 75 mg tablet 75 mg PO DAILY doxycycline monohydrate 100 mg capsule 100 mg PO BID carvedilol 25 mg tablet 37.5 mg PO BID potassium chloride 10 mEq tablet extended release 10 meq PO DAILY cinnamon bark 500 mg capsule 1,000 mg PO DAILY atorvastatin 10 mg tablet 10 mg PO DAILY Qty: 90 3RF albuterol sulfate 90 mcg/actuation HFA aerosol inhaler 1 - 2 inh inhalation Q4-6H PRN (Reason: shortness of breath or wheezing) Qty: 8.5 11RF furosemide 20 mg tablet 20 mg PO DAILY PRN Hold Instructions: Home Medication placed on hold at Doctor's office glimepiride 2 mg tablet 2 mg PO DAILY Qty: 90 3RF Rx Instructions: must take with food (DME) ResMed AirSense 10 CPAP Qty: 1 Dose Instruction: As directed Patient Comments: Pressure: 7-12 cmH2O DME: [facility] Rx Instructions: As directed loratadine [Claritin] 10 mg tablet 10 mg PO DAILY Referrals: [facility] [Provider Group] Saige Jones DO [Primary Care Provider] - Stand Alone Forms: Patient Portal/API
[2023-01-16 13:43] LABS: Bacteria Urine None Seen; Culture Indicated Urine Cult Not Indicated; RBC Urine 0-1/HPF (0-5/HPF); Squamous Epithelial Cell Urine 0-1 /HPF (0-5/HPF); WBC Urine 0-1/HPF (0-5/HPF)
== END 2023-01-16 13:50 | disposition home or self-care (01) ==
PROVIDERS: Emergency Provider Emergency Medicine; PCP Family Medicine
DX: K62.5 Hemorrhage of anus and rectum (principal); I10 Essential (primary) hypertension
CPT/HCPCS: 36415; 74177; 80053; 81003; 81015; 85025; 85610; 85730; 86850; 86900; 86901; 93005; 93010; 96374; 99284; C9113; Q9967

== ENCOUNTER 2023-01-21 12:13 | Emergency (ER) | payer MEDICARE, SELFPAY ==
[2022-07-12 15:10] VITALS: PULSE 71; RESP 25; O2SAT 95
[2023-01-21] VITALS (59 sets, daily range): BP systolic 70–133; BP diastolic 46–73; PULSE 80–97; RESP 17–29; TEMP 36.2–36.4; O2SAT 86–97; BMI 27.6
[2023-01-21 12:49] LABS: Add Manual Diff / Slide Review NO; Basophils Absolute Auto 100 /uL (0-100); Basophils Percent Auto 0.4 % (0-2); Eosinophils Absolute Auto 0 /uL (0-450); Hematocrit 31.3 % (41-53); Hemoglobin 10.5 g/dL (13.5-17.5); Lymphocytes Absolute Auto 1100 /uL (1100-4500); Lymphocytes Percent Auto 5.3 % (25-40); Mean Corpuscular HGB Conc 33.4 % (30-36); Mean Corpuscular Hemoglobin 27.5 PG (26-34); Mean Corpuscular Volume 82.3 fL (80-100); Monocytes Absolute Auto 1100 /uL (0-900); Monocytes Percent Auto 5.1 % (3-14); Neutrophils Absolute Auto 19300 /uL (1500-7000); Neutrophils Percent Auto 89.2 % (50-75); Platelet Count 473 X10^3/uL (150-400); White Blood Cell Count 21.6 X10^3/uL (4.5-11.0)
[2023-01-21] MEDS: PANTOPRAZOLE 40 MG VIAL 80 MG IV (12:49)
[2023-01-21 12:52] LABS: INR 1.4 (0.9-1.3); Prothrombin Time 15.7 SECONDS (9.4-12.5)
[2023-01-21 12:55] LABS: Alanine Aminotransferase 20 IU/L (<50); Albumin 3.6 g/dL (3.5-5.0); Alkaline Phosphatase 293 U/L (38-126); Aspartate Aminotransferase 25 IU/L (17-59); BUN Creatinine Ratio 23.2 (6-22); Bilirubin Total 1.1 mg/dL (0.2-1.3); Blood Urea Nitrogen 76 mg/dL (9-20); Calcium 8.5 mg/dL (8.4-10.2); Chloride 80 mmol/L (98-107); Estimated Glomerular Filt Rate 19 mL/min (>60); Globulin 3.6 g/dL (1.7-4.1); Glucose 256 mg/dL (80-110); HEMOLYSIS < 15 (0-50); PTT Partial Thromboplastin Tim 25 SECONDS (25.1-36.5); Sodium 133 mmol/L (137-145); Total Protein 7.2 g/dL (6.3-8.2)
[2023-01-21 13:01] LABS: Carbon Dioxide 38 mmol/L (22-32)
[2023-01-21 13:03] LABS: Potassium 2.7 mmol/L (3.4-5.1)
[2023-01-21] MEDS: ONDANSETRON 4 MG/2 ML INJ IV (14:07)
--- NOTE | 2023-01-21 14:17 | ED.GENADULT ---
HPI - General Adult <Chelsey Bravo MD - Last Filed: 01/25/23 01:06> General Chief complaint: Weakness Stated complaint: Fall last night due to weakness Time Seen by Provider: 01/21/23 13:45 Source: EMS Mode of arrival: EMS History of Present Illness HPI narrative: 77-year-old gentleman with a history of hyperlipidemia, peripheral vascular disease, diabetes, hypertension, recent choledocholithiasis with biliary stent placement removal and replacement reportedly to have it removed again in February. Care was at [facility] for this. Was in the emergency department on January 16 with rectal bleeding 2 episodes of bright red blood per rectum. He was felt to be stable and discharged home. Seen by his primary care doctor on the indicate he is had no additional rectal bleeding and has stopped his Plavix as of January 16. He presents today after an episode of significant weakness, he apparently fell out of bed around midnight but declined ER transport at that time. When he woke up later in the morning he was weak enough that he called EMS. Patient reportedly was pale with oxygen in the mid 80s on room air. Patient reports coffee-ground emesis and dark stool stools. He states the stools are much darker not actually black and there is bright red blood mixed in with the stool itself not just on the outside. 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 He complains of epigastric pain radiating up into his chest that is similar to prior biliary related pain. He does not describe any fevers or significant cough. He is notably hypoxic. Related Data Home Medications Medication Instructions Recorded Confirmed ResMed AirSense 10 CPAP #1 ea 04/14/18 01/19/23 loratadine 10 mg tablet (Claritin) 10 mg PO DAILY 04/16/18 01/19/23 cinnamon bark 500 mg capsule 1,000 mg PO DAILY 12/03/21 01/19/23 furosemide 20 mg tablet 20 mg PO DAILY PRN 07/25/22 01/19/23 lidocaine HCl 4 % topical liquid ea topical 07/25/22 01/19/23 roll-on (Aspercreme (lidocaine HCl)) amlodipine 5 mg tablet 5 mg PO DAILY 01/05/23 01/19/23 aspirin 81 mg tablet,delayed 81 mg PO DAILY 01/05/23 01/19/23 release (Adult Low Dose Aspirin) carvedilol 25 mg tablet 37.5 mg PO BID 01/05/23 01/19/23 cefdinir 300 mg capsule mg PO BID 01/05/23 01/19/23 doxycycline monohydrate 100 mg 100 mg PO BID 01/05/23 01/19/23 capsule potassium chloride 10 mEq 10 meq PO DAILY 01/05/23 01/19/23 tablet,extended release carvedilol 25 mg tablet 37.5 mg PO BID 01/22/23 01/22/23 clopidogrel 75 mg tablet 75 mg PO DAILY 01/22/23 01/22/23 gabapentin 300 mg capsule 900 mg PO ONCE PM 01/22/23 01/22/23 lisinopril 20 mg tablet 20 mg PO DAILY 01/22/23 01/22/23 metformin 1,000 mg tablet 1,000 mg PO BID 01/22/23 01/22/23 pantoprazole 40 mg tablet,delayed 40 mg PO 01/22/23 release pantoprazole 40 mg tablet,delayed 40 mg PO DAILY 01/22/23 01/22/23 release (Protonix) Previous Rx's Medication Instructions Recorded atorvastatin 10 mg tablet 10 mg PO DAILY #90 tabs 12/03/21 albuterol sulfate 90 mcg/actuation 1 - 2 inh inhalation Q4-6H PRN 04/16/22 aerosol inhaler shortness of breath or wheezing #8.5 grams gabapentin 300 mg capsule 900 mg (3 x 300 mg) PO BEDTIME 06/04/22 #270 caps blood sugar diagnostic (OneTouch #100 ea 08/08/22 Verio test strips) lancets #100 ea 08/08/22 lisinopril 20 mg tablet 20 mg PO DAILY blood pressure #90 08/22/22 tabs metformin 1,000 mg tablet See Rx Instructions .Route BID 08/22/22 diabetes #180 tabs glimepiride 2 mg tablet 2 mg PO DAILY #90 tabs 10/06/22 blood sugar diagnostic (Blood #50 ea 12/29/22 Glucose Test strips) lancets 30 gauge (OneTouch Delica #100 ea 12/29/22 Plus Lancet) pantoprazole 40 mg tablet,delayed 40 mg PO ONCE #90 tabs 12/29/22 release famotidine 20 mg tablet 20 mg PO BID #180 tabs 01/05/23 blood-glucose meter,continuous #1 ea 01/19/23 (Dexcom G7 Chairman Emeritus) blood-glucose sensor (Dexcom G7 #1 ea 01/19/23 Sensor device) sodium,potassium,mag sulfates 17.5 See Rx Instructions PO .COMPLEX 01/19/23 gram-3.13 gram-1.6 gram oral soln #354 mL (Suprep Bowel Prep Kit) Allergies Allergy/AdvReac Type Severity Reaction Status Date / Time No Known Drug Allergies Allergy Verified 01/21/23 12:23 Review of Systems <Chelsey Bravo MD - Last Filed: 01/25/23 01:06> Review of Systems Narrative: Pertinent positive and negative findings as per HPI Patient History <Chelsey Bravo MD - Last Filed: 01/25/23 01:06> Medical History Peripheral vascular disease Right toe amputee CKD (chronic kidney disease) stage 3, GFR 30-59 ml/min COPD (chronic obstructive pulmonary disease) NGO (dyspnea on exertion) Medicare annual wellness visit, subsequent Type 2 diabetes mellitus with microalbuminuria, without long-term current use of insulin Peripheral autonomic 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 GERD (gastroesophageal reflux disease) Hyperlipidemia RLS (restless legs syndrome) Benign essential HTN Type 2 diabetes mellitus with diabetic polyneuropathy, without long-term current use of insulin Obstructive sleep apnea of adult (~12/2017) Social History marital status: details: lives in [place] lives independently: Yes caregiver/support person: Yes (he is a caregiver for his GIAN) housing: house Smoking Status: Former smoker Smoking Status: Former smoker alcohol intake frequency: holidays/special occasions only Substance Use Type: does not use Exam <Chelsey Bravo MD - Last Filed: 01/25/23 01:06> Initial Vital Signs Initial Vital Signs: Vital Signs Temperature 97.5 F L 01/21/23 12:16 Pulse Rate 97 H 01/21/23 12:16 Respiratory Rate 20 01/21/23 12:16 Blood Pressure 120/58 L 01/21/23 12:16 Pulse Oximetry 89 L 01/21/23 12:16 Oxygen Delivery Method Nasal Cannula 01/21/23 12:16 Oxygen Flow Rate 3 01/21/23 12:16 General: Chronically ill-appearing, pale, mildly tachypneic. Able to give a complete and coherent history. Well-nourished well-developed HEENT: Moist mucous membranes, normal sclera with reactive pupils, Neck: No JVD, supple Respiratory: Lungs are clear to auscultation, no wheezing no rales no rhonchi. Full and symmetrical air movement Cardiac: Slight tachycardia with 3/6 systolic murmur. Abdomen: Soft, tender in the epigastrium without rebound or guarding. No flank pain Skin: Pale, Warm and dry, no rashes Neurologic: Grossly neurologically intact with no obvious asymmetries or abnormalities Extremities: No trauma, chronic venous stasis changes with 1+ bilateral lower extremity edema Psych: Cooperative, appropriate insight and affect <Anil Jones DO - Last Filed: 01/22/23 19:19> Initial Vital Signs Initial Vital Signs: Vital Signs Temperature 97.5 F L 01/21/23 12:16 Pulse Rate 97 H 01/21/23 12:16 Respiratory Rate 20 01/21/23 12:16 Blood Pressure 120/58 L 01/21/23 12:16 Pulse Oximetry 89 L 01/21/23 12:16 Oxygen Delivery Method Nasal Cannula 01/21/23 12:16 Oxygen Flow Rate 3 01/21/23 12:16 <Luly Huertas DO - Last Filed: 01/22/23 15:21> Initial Vital Signs Initial Vital Signs: Vital Signs Temperature 97.5 F L 01/21/23 12:16 Pulse Rate 97 H 01/21/23 12:16 Respiratory Rate 20 01/21/23 12:16 Blood Pressure 120/58 L 01/21/23 12:16 Pulse Oximetry 89 L 01/21/23 12:16 Oxygen Delivery Method Nasal Cannula 01/21/23 12:16 Oxygen Flow Rate 3 01/21/23 12:16 Course <Chelsey Bravo MD - Last Filed: 01/25/23 01:06> Orders Ordered: Discontinued Medications Atorvastatin Calcium (Atorvastatin 20 Mg Tablet) 10 mg PO DAILY NATALIE Last Admin: 01/22/23 09:17 Dose: 10 mg Documented By: AMV Carvedilol (Carvedilol 12.5 Mg Tablet) 37.5 mg PO DAILY NATALIE Carvedilol (Carvedilol 12.5 Mg Tablet) 25 mg PO NOW ONE Stop: 01/22/23 08:55 Last Admin: 01/22/23 09:17 Dose: 25 mg Documented By: AMV Furosemide (Furosemide 40 Mg/4 Ml Vial) 20 mg IV NOW ONE Stop: 01/22/23 08:48 Last Admin: 01/22/23 08:58 Dose: 20 mg Documented By: AMV Hydromorphone HCl (Hydromorphone 0.5 Mg Inj) 0.5 mg IV Q15MIN PRN PRN Reason: Pain, Last Admin: 01/21/23 15:04 Dose: 0.5 mg Documented By: EBENEZER Piperacillin Sod/Tazobactam (Sod 4.5 gm/ Sodium Chloride) 100 mls @ 200 mls/hr IV NOW ONE Stop: 01/21/23 14:48 Last Infusion: 01/21/23 16:24 Dose: Infused Documented By: Admin: 01/21/23 15:25 Dose: 200 mls/hr Documented By: AMV Sodium Chloride (Normal Saline 0.9%) 1,000 mls @ 1,000 mls/hr IV BOLUS ONE Stop: 01/21/23 15:46 Last Infusion: 01/21/23 22:31 Dose: Infused Documented By: Admin: 01/21/23 15:04 Dose: 1,000 mls/hr Documented By: EBENEZER Tranexamic Acid 1,000 mg/ (Sodium Chloride) 100 mls @ 200 mls/hr IV NOW ONE Stop: 01/21/23 16:06 Last Infusion: 01/21/23 16:17 Dose: Infused Documented By: Admin: 01/21/23 15:47 Dose: 200 mls/hr Documented By: AMKain Sodium Chloride (Normal Saline 0.9%) 1,000 mls @ 75 mls/hr IV CONT NATALIE Last Infusion: 01/22/23 12:35 Dose: 0 mls/hr Documented By: Admin: 01/22/23 11:32 Dose: 75 mls/hr Documented By: Infusion: 01/22/23 11:32 Dose: Infused Documented By: Admin: 01/21/23 23:49 Dose: 75 mls/hr Documented By: JUVENAL Piperacillin Sod/Tazobactam (Sod 3.375 gm/ Sodium Chloride) 100 mls @ 25 mls/hr IV Q8H [facility] Last Infusion: 01/22/23 12:35 Dose: Infused Documented By: Admin: 01/22/23 08:03 Dose: 25 mls/hr Documented By: Infusion: 01/22/23 04:06 Dose: Infused Documented By: Admin: 01/21/23 23:58 Dose: 25 mls/hr Documented By: JUVENAL POTASSIUM CHLORIDE IN WATER (Potassium Cl 10 Meq/100 Ml Fern) 10 meq in 100 mls @ 100 mls/hr IV Q1H NATALIE Stop: 01/22/23 03:44 Last Infusion: 01/22/23 04:22 Dose: Infused Documented By: Admin: 01/22/23 03:19 Dose: 100 mls/hr Documented By: Infusion: 01/22/23 03:19 Dose: Infused Documented By: Admin: 01/22/23 02:19 Dose: 100 mls/hr Documented By: Infusion: 01/22/23 02:19 Dose: Infused Documented By: Admin: 01/22/23 01:16 Dose: 100 mls/hr Documented By: Infusion: 01/22/23 01:15 Dose: Infused Documented By: Admin: 01/22/23 00:10 Dose: 100 mls/hr Documented By: JUVENAL POTASSIUM CHLORIDE IN WATER (Potassium Cl 10 Meq/100 Ml Fern) 10 meq in 100 mls @ 100 mls/hr IV Q1H NATALIE Stop: 01/22/23 11:14 Last Infusion: 01/22/23 12:36 Dose: Infused Documented By: Admin: 01/22/23 11:12 Dose: 100 mls/hr Documented By: Infusion: 01/22/23 11:02 Dose: Infused Documented By: Admin: 01/22/23 10:02 Dose: 100 mls/hr Documented By: Infusion: 01/22/23 09:58 Dose: Infused Documented By: Admin: 01/22/23 08:58 Dose: 100 mls/hr Documented By: Infusion: 01/22/23 08:58 Dose: Infused Documented By: Admin: 01/22/23 08:04 Dose: 100 mls/hr Documented By: AMV Lisinopril (Lisinopril 20 Mg Tablet) 20 mg PO DAILY [facility] Ondansetron HCl (Ondansetron 4 Mg/2 Ml Inj) 4 mg IV NOW PRN PRN Reason: Nausea And Vomiting Last Admin: 01/21/23 14:07 Dose: 4 mg Documented By: AMV Ondansetron HCl (Ondansetron 4 Mg Odt) 4 mg SL NOW PRN PRN Reason: Nausea And Vomiting Last Admin: 01/21/23 15:04 Dose: 4 mg Documented By: EBENEZER Pantoprazole Sodium (Pantoprazole 40 Mg Vial) 80 mg IV NOW ONE Stop: 01/21/23 12:41 Last Admin: 01/21/23 12:49 Dose: 80 mg Documented By: AMV Pantoprazole Sodium (Pantoprazole 40 Mg Vial) 40 mg IV DAILY [facility] Last Admin: 01/22/23 08:58 Dose: 40 mg Documented By: AMV Vital Signs Vital signs: Vital Signs - 8 hr 01/22/23 11:30 01/22/23 11:30 01/22/23 11:45 Pulse Rate 78 79 Respiratory Rate 24 27 H Blood Pressure 138/64 Pulse Oximetry 96 95 01/22/23 12:00 01/22/23 12:00 01/22/23 12:15 Pulse Rate 80 79 Respiratory Rate 27 H 26 H Blood Pressure 124/60 Pulse Oximetry 94 92 <Anil Jones DO - Last Filed: 01/22/23 19:19> Orders Ordered: Discontinued Medications Atorvastatin Calcium (Atorvastatin 20 Mg Tablet) 10 mg PO DAILY [facility] Last Admin: 01/22/23 09:17 Dose: 10 mg Documented By: AMV Carvedilol (Carvedilol 12.5 Mg Tablet) 37.5 mg PO DAILY [facility] Carvedilol (Carvedilol 12.5 Mg Tablet) 25 mg PO NOW ONE Stop: 01/22/23 08:55 Last Admin: 01/22/23 09:17 Dose: 25 mg Documented By: AMV Furosemide (Furosemide 40 Mg/4 Ml Vial) 20 mg IV NOW ONE Stop: 01/22/23 08:48 Last Admin: 01/22/23 08:58 Dose: 20 mg Documented By: AMV Hydromorphone HCl (Hydromorphone 0.5 Mg Inj) 0.5 mg IV Q15MIN PRN PRN Reason: Pain, Last Admin: 01/21/23 15:04 Dose: 0.5 mg Documented By: EBENEZER Piperacillin Sod/Tazobactam (Sod 4.5 gm/ Sodium Chloride) 100 mls @ 200 mls/hr IV NOW ONE Stop: 01/21/23 14:48 Last Infusion: 01/21/23 16:24 Dose: Infused Documented By: Admin: 01/21/23 15:25 Dose: 200 mls/hr Documented By: AMKain Sodium Chloride (Normal Saline 0.9%) 1,000 mls @ 1,000 mls/hr IV BOLUS ONE Stop: 01/21/23 15:46 Last Infusion: 01/21/23 22:31 Dose: Infused Documented By: Admin: 01/21/23 15:04 Dose: 1,000 mls/hr Documented By: EBENEZER Tranexamic Acid 1,000 mg/ (Sodium Chloride) 100 mls @ 200 mls/hr IV NOW ONE Stop: 01/21/23 16:06 Last Infusion: 01/21/23 16:17 Dose: Infused Documented By: Admin: 01/21/23 15:47 Dose: 200 mls/hr Documented By: MIROSLAVA Sodium Chloride (Normal Saline 0.9%) 1,000 mls @ 75 mls/hr IV CONT NATALIE Last Infusion: 01/22/23 12:35 Dose: 0 mls/hr Documented By: Admin: 01/22/23 11:32 Dose: 75 mls/hr Documented By: AMKain Infusion: 01/22/23 11:32 Dose: Infused Documented By: Admin: 01/21/23 23:49 Dose: 75 mls/hr Documented By: JUVENAL Piperacillin Sod/Tazobactam (Sod 3.375 gm/ Sodium Chloride) 100 mls @ 25 mls/hr IV Q8H [facility] Last Infusion: 01/22/23 12:35 Dose: Infused Documented By: Admin: 01/22/23 08:03 Dose: 25 mls/hr Documented By: AMKain Infusion: 01/22/23 04:06 Dose: Infused Documented By: Admin: 01/21/23 23:58 Dose: 25 mls/hr Documented By: JUVENAL POTASSIUM CHLORIDE IN WATER (Potassium Cl 10 Meq/100 Ml Fern) 10 meq in 100 mls @ 100 mls/hr IV Q1H NATALIE Stop: 01/22/23 03:44 Last Infusion: 01/22/23 04:22 Dose: Infused Documented By: Admin: 01/22/23 03:19 Dose: 100 mls/hr Documented By: Infusion: 01/22/23 03:19 Dose: Infused Documented By: Admin: 01/22/23 02:19 Dose: 100 mls/hr Documented By: Infusion: 01/22/23 02:19 Dose: Infused Documented By: Admin: 01/22/23 01:16 Dose: 100 mls/hr Documented By: Infusion: 01/22/23 01:15 Dose: Infused Documented By: Admin: 01/22/23 00:10 Dose: 100 mls/hr Documented By: JUVENAL POTASSIUM CHLORIDE IN WATER (Potassium Cl 10 Meq/100 Ml Fern) 10 meq in 100 mls @ 100 mls/hr IV Q1H NATALIE Stop: 01/22/23 11:14 Last Infusion: 01/22/23 12:36 Dose: Infused Documented By: Admin: 01/22/23 11:12 Dose: 100 mls/hr Documented By: Infusion: 01/22/23 11:02 Dose: Infused Documented By: Admin: 01/22/23 10:02 Dose: 100 mls/hr Documented By: Infusion: 01/22/23 09:58 Dose: Infused Documented By: Admin: 01/22/23 08:58 Dose: 100 mls/hr Documented By: Infusion: 01/22/23 08:58 Dose: Infused Documented By: Admin: 01/22/23 08:04 Dose: 100 mls/hr Documented By: AMV Lisinopril (Lisinopril 20 Mg Tablet) 20 mg PO DAILY NATALIE Ondansetron HCl (Ondansetron 4 Mg/2 Ml Inj) 4 mg IV NOW PRN PRN Reason: Nausea And Vomiting Last Admin: 01/21/23 14:07 Dose: 4 mg Documented By: AMV Ondansetron HCl (Ondansetron 4 Mg Odt) 4 mg SL NOW PRN PRN Reason: Nausea And Vomiting Last Admin: 01/21/23 15:04 Dose: 4 mg Documented By: EBENEZER Pantoprazole Sodium (Pantoprazole 40 Mg Vial) 80 mg IV NOW ONE Stop: 01/21/23 12:41 Last Admin: 01/21/23 12:49 Dose: 80 mg Documented By: MIROSLAVA Pantoprazole Sodium (Pantoprazole 40 Mg Vial) 40 mg IV DAILY [facility] Last Admin: 01/22/23 08:58 Dose: 40 mg Documented By: MIROSLAVA Vital Signs Vital signs: Vital Signs - 8 hr 01/22/23 11:30 01/22/23 11:30 01/22/23 11:45 Pulse Rate 78 79 Respiratory Rate 24 27 H Blood Pressure 138/64 Pulse Oximetry 96 95 01/22/23 12:00 01/22/23 12:00 01/22/23 12:15 Pulse Rate 80 79 Respiratory Rate 27 H 26 H Blood Pressure 124/60 Pulse Oximetry 94 92 <Luly Huertas DO - Last Filed: 01/22/23 15:21> Orders Ordered: Discontinued Medications Atorvastatin Calcium (Atorvastatin 20 Mg Tablet) 10 mg PO DAILY [facility] Last Admin: 01/22/23 09:17 Dose: 10 mg Documented By: MIROSLAVA Carvedilol (Carvedilol 12.5 Mg Tablet) 37.5 mg PO DAILY [facility] Carvedilol (Carvedilol 12.5 Mg Tablet) 25 mg PO NOW ONE Stop: 01/22/23 08:55 Last Admin: 01/22/23 09:17 Dose: 25 mg Documented By: MIROSLAVA Furosemide (Furosemide 40 Mg/4 Ml Vial) 20 mg IV NOW ONE Stop: 01/22/23 08:48 Last Admin: 01/22/23 08:58 Dose: 20 mg Documented By: MIROSLAVA Hydromorphone HCl (Hydromorphone 0.5 Mg Inj) 0.5 mg IV Q15MIN PRN PRN Reason: Pain, Last Admin: 01/21/23 15:04 Dose: 0.5 mg Documented By: EBENEZER Piperacillin Sod/Tazobactam (Sod 4.5 gm/ Sodium Chloride) 100 mls @ 200 mls/hr IV NOW ONE Stop: 01/21/23 14:48 Last Infusion: 01/21/23 16:24 Dose: Infused Documented By: Admin: 01/21/23 15:25 Dose: 200 mls/hr Documented By: MIROSLAVA Sodium Chloride (Normal Saline 0.9%) 1,000 mls @ 1,000 mls/hr IV BOLUS ONE Stop: 01/21/23 15:46 Last Infusion: 01/21/23 22:31 Dose: Infused Documented By: Admin: 01/21/23 15:04 Dose: 1,000 mls/hr Documented By: EBENEZER Tranexamic Acid 1,000 mg/ (Sodium Chloride) 100 mls @ 200 mls/hr IV NOW ONE Stop: 01/21/23 16:06 Last Infusion: 01/21/23 16:17 Dose: Infused Documented By: Admin: 01/21/23 15:47 Dose: 200 mls/hr Documented By: MIROSLAVA Sodium Chloride (Normal Saline 0.9%) 1,000 mls @ 75 mls/hr IV CONT NATALIE Last Infusion: 01/22/23 12:35 Dose: 0 mls/hr Documented By: AMKain Admin: 01/22/23 11:32 Dose: 75 mls/hr Documented By: Infusion: 01/22/23 11:32 Dose: Infused Documented By: AMKain Admin: 01/21/23 23:49 Dose: 75 mls/hr Documented By: JUVENAL Piperacillin Sod/Tazobactam (Sod 3.375 gm/ Sodium Chloride) 100 mls @ 25 mls/hr IV Q8H [facility] Last Infusion: 01/22/23 12:35 Dose: Infused Documented By: AMKain Admin: 01/22/23 08:03 Dose: 25 mls/hr Documented By: Infusion: 01/22/23 04:06 Dose: Infused Documented By: Admin: 01/21/23 23:58 Dose: 25 mls/hr Documented By: JUVENAL POTASSIUM CHLORIDE IN WATER (Potassium Cl 10 Meq/100 Ml Fern) 10 meq in 100 mls @ 100 mls/hr IV Q1H NATALIE Stop: 01/22/23 03:44 Last Infusion: 01/22/23 04:22 Dose: Infused Documented By: Admin: 01/22/23 03:19 Dose: 100 mls/hr Documented By: Infusion: 01/22/23 03:19 Dose: Infused Documented By: Admin: 01/22/23 02:19 Dose: 100 mls/hr Documented By: Infusion: 01/22/23 02:19 Dose: Infused Documented By: Admin: 01/22/23 01:16 Dose: 100 mls/hr Documented By: Infusion: 01/22/23 01:15 Dose: Infused Documented By: Admin: 01/22/23 00:10 Dose: 100 mls/hr Documented By: JUVENAL POTASSIUM CHLORIDE IN WATER (Potassium Cl 10 Meq/100 Ml Fern) 10 meq in 100 mls @ 100 mls/hr IV Q1H NATALIE Stop: 01/22/23 11:14 Last Infusion: 01/22/23 12:36 Dose: Infused Documented By: Admin: 01/22/23 11:12 Dose: 100 mls/hr Documented By: Infusion: 01/22/23 11:02 Dose: Infused Documented By: Admin: 01/22/23 10:02 Dose: 100 mls/hr Documented By: Infusion: 01/22/23 09:58 Dose: Infused Documented By: Admin: 01/22/23 08:58 Dose: 100 mls/hr Documented By: Infusion: 01/22/23 08:58 Dose: Infused Documented By: Admin: 01/22/23 08:04 Dose: 100 mls/hr Documented By: AMV Lisinopril (Lisinopril 20 Mg Tablet) 20 mg PO DAILY [facility] Ondansetron HCl (Ondansetron 4 Mg/2 Ml Inj) 4 mg IV NOW PRN PRN Reason: Nausea And Vomiting Last Admin: 01/21/23 14:07 Dose: 4 mg Documented By: AMV Ondansetron HCl (Ondansetron 4 Mg Odt) 4 mg SL NOW PRN PRN Reason: Nausea And Vomiting Last Admin: 01/21/23 15:04 Dose: 4 mg Documented By: EBENEZER Pantoprazole Sodium (Pantoprazole 40 Mg Vial) 80 mg IV NOW ONE Stop: 01/21/23 12:41 Last Admin: 01/21/23 12:49 Dose: 80 mg Documented By: AMV Pantoprazole Sodium (Pantoprazole 40 Mg Vial) 40 mg IV DAILY [facility] Last Admin: 01/22/23 08:58 Dose: 40 mg Documented By: AMV Vital Signs Vital signs: Vital Signs - 8 hr 01/22/23 11:30 01/22/23 11:30 01/22/23 11:45 Pulse Rate 78 79 Respiratory Rate 24 27 H Blood Pressure 138/64 Pulse Oximetry 96 95 01/22/23 12:00 01/22/23 12:00 01/22/23 12:15 Pulse Rate 80 79 Respiratory Rate 27 H 26 H Blood Pressure 124/60 Pulse Oximetry 94 92 Medical Decision Making <Chelsey Bravo MD - Last Filed: 01/25/23 01:06> Lab Data 01/22/23 06:45 01/22/23 06:45 Labs: Lab Results 01/21/23 01/21/23 01/21/23 Range/Units 12:35 15:05 15:15 WBC 21.6 H (4.5-11.0) X10^3/uL RBC 3.80 L (4.5-5.9) X10^6/uL Hgb 10.5 L 6.3 L* (13.5-17.5) g/dL Hct 31.3 L 19.0 L* (41-53) % MCV 82.3 (80-100) fL MCH 27.5 (26-34) PG MCHC 33.4 (30-36) % RDW 15.0 H (11.6-14.8) % Plt Count 473 H (150-400) X10^3/uL Neut % (Auto) 89.2 H (50-75) % Lymph % (Auto) 5.3 L (25-40) % Stark % (Auto) 5.1 (3-14) % Eos % (Auto) 0.0 L (2-4) % Baso % (Auto) 0.4 (0-2) % Neut # (Auto) 35656 H (3060-6859) /uL Lymph # (Auto) 1100 (4885-0882) /uL Stark # (Auto) 1100 H (0-900) /uL Eos # (Auto) 0 (0-450) /uL Baso # (Auto) 100 (0-100) /uL PT 15.7 H (9.4-12.5) SECONDS INR 1.4 H (0.9-1.3) APTT 25 L (25.1-36.5) SECONDS Sodium 133 L (137-145) mmol/L Potassium 2.7 L* (3.4-5.1) mmol/L Chloride 80 L (98-107) mmol/L Carbon Dioxide 38 H (22-32) mmol/L BUN 76 H (9-20) mg/dL Creatinine 3.27 H (0.66-1.25) mg/dL Estimated GFR 19 L (>60) mL/min BUN/Creatinine Ratio 23.2 H (6-22) Glucose 256 H (80-110) mg/dL Lactate 1.6 (0.7-2.1) mmol/L Calcium 8.5 (8.4-10.2) mg/dL Magnesium (1.6-2.3) mg/dL Total Bilirubin 1.1 (0.2-1.3) mg/dL AST 25 (17-59) IU/L ALT 20 (<50) IU/L Alkaline Phosphatase 293 H (38-126) U/L Total Creatine Kinase (55-170) U/L Troponin I (0.01-0.034) ng/mL NT-Pro-B Natriuret Pep (<450) pg/mL Total Protein 7.2 (6.3-8.2) g/dL Albumin 3.6 (3.5-5.0) g/dL Globulin 3.6 (1.7-4.1) g/dL Albumin/Globulin Ratio 1.0 (1.0-2.8) Lipase (23-300) U/L Urine Color Urine Appearance Urine pH (4.5-8.0) Ur Specific Clayton (1.000-1.035) Urine Protein (Negative) Urine Glucose (UA) (Negative) g/dL Urine Ketones (NEGATIVE) Urine Occult Blood (Negative) Urine Nitrate (Negative) Urine Bilirubin (NEGATIVE) Ur Bilirubin Confirm Urine Urobilinogen (0.2) E.U./dL Ur Leukocyte Esterase (NEGATIVE) Urine RBC (0-5/HPF) Urine WBC (0-5/HPF) Ur Squamous Epith Cells (0-5/HPF) Urine Bacteria (None) Ur Culture Indicated? Chlamy pneumoniae PCR (Not Detect) Adenovirus (PCR) (Not Detect) B.parapertussis DNA PCR (Not Detecte) Coronavirus OC43 (PCR) (Not Detect) Coronavirus HKU1 (PCR) (Not Detect) Coronavirus 229E (PCR) (Not Detect) SARS-CoV-2 (PCR) (Not Detecte) Coronavirus NL63 (PCR) (Not Detect) Human Metapneumovir PCR (Not Detect) Influenza Type A (PCR) (Not Detect) Influenza Type B (PCR) (Not Detect) M. pneumoniae (PCR) (Not Detect) Parainfluenza 1 (PCR) (Not Detect) Parainfluenza 2 (PCR) (Not Detect) Parainfluenza 3 (PCR) (Not Detect) Parainfluenza 4 (PCR) (Not Detect) RSV (PCR) (Not Detect) Entero/Rhino (PCR) (Not Detect) Blood Type B Positive Cancelled Antibody Screen Negative Cancelled Crossmatch See Detail See Detail 01/21/23 01/21/23 01/21/23 Range/Units 16:55 23:18 23:20 WBC 19.1 H (4.5-11.0) X10^3/uL RBC 3.52 L (4.5-5.9) X10^6/uL Hgb 10.2 L 9.8 L (13.5-17.5) g/dL Hct 30.2 L 29.0 L (41-53) % MCV 82.4 (80-100) fL MCH 27.9 (26-34) PG MCHC 33.8 (30-36) % RDW 15.4 H (11.6-14.8) % Plt Count 304 (150-400) X10^3/uL Neut % (Auto) 87.3 H (50-75) % Lymph % (Auto) 6.6 L (25-40) % Stark % (Auto) 5.1 (3-14) % Eos % (Auto) 0.2 L (2-4) % Baso % (Auto) 0.8 (0-2) % Neut # (Auto) 45829 H (5171-9527) /uL Lymph # (Auto) 1300 (1756-0951) /uL Stark # (Auto) 1000 H (0-900) /uL Eos # (Auto) 0 (0-450) /uL Baso # (Auto) 200 H (0-100) /uL PT (9.4-12.5) SECONDS INR (0.9-1.3) APTT (25.1-36.5) SECONDS Sodium 131 L (137-145) mmol/L Potassium 2.6 L* (3.4-5.1) mmol/L Chloride 90 L (98-107) mmol/L Carbon Dioxide 30 (22-32) mmol/L BUN 81 H (9-20) mg/dL Creatinine 3.31 H (0.66-1.25) mg/dL Estimated GFR 18 L (>60) mL/min BUN/Creatinine Ratio 24.5 H (6-22) Glucose 180 H (80-110) mg/dL Lactate (0.7-2.1) mmol/L Calcium 7.1 L (8.4-10.2) mg/dL Magnesium (1.6-2.3) mg/dL Total Bilirubin (0.2-1.3) mg/dL AST (17-59) IU/L ALT (<50) IU/L Alkaline Phosphatase (38-126) U/L Total Creatine Kinase (55-170) U/L Troponin I (0.01-0.034) ng/mL NT-Pro-B Natriuret Pep (<450) pg/mL Total Protein (6.3-8.2) g/dL Albumin (3.5-5.0) g/dL Globulin (1.7-4.1) g/dL Albumin/Globulin Ratio (1.0-2.8) Lipase (23-300) U/L Urine Color Urine Appearance Urine pH (4.5-8.0) Ur Specific Clayton (1.000-1.035) Urine Protein (Negative) Urine Glucose (UA) (Negative) g/dL Urine Ketones (NEGATIVE) Urine Occult Blood (Negative) Urine Nitrate (Negative) Urine Bilirubin (NEGATIVE) Ur Bilirubin Confirm Urine Urobilinogen (0.2) E.U./dL Ur Leukocyte Esterase (NEGATIVE) Urine RBC (0-5/HPF) Urine WBC (0-5/HPF) Ur Squamous Epith Cells (0-5/HPF) Urine Bacteria (None) Ur Culture Indicated? Chlamy pneumoniae PCR Not detected (Not Detect) Adenovirus (PCR) Not detected (Not Detect) B.parapertussis DNA PCR Not detected (Not Detecte) Coronavirus OC43 (PCR) Not detected (Not Detect) Coronavirus HKU1 (PCR) Not detected (Not Detect) Coronavirus 229E (PCR) Not detected (Not Detect) SARS-CoV-2 (PCR) Not detected (Not Detecte) Coronavirus NL63 (PCR) Not detected (Not Detect) Human Metapneumovir PCR Not detected (Not Detect) Influenza Type A (PCR) Not detected (Not Detect) Influenza Type B (PCR) Not detected (Not Detect) M. pneumoniae (PCR) Not detected (Not Detect) Parainfluenza 1 (PCR) Not detected (Not Detect) Parainfluenza 2 (PCR) Not detected (Not Detect) Parainfluenza 3 (PCR) Not detected (Not Detect) Parainfluenza 4 (PCR) Not detected (Not Detect) RSV (PCR) Not detected (Not Detect) Entero/Rhino (PCR) Not detected (Not Detect) Blood Type Antibody Screen Crossmatch 01/22/23 01/22/23 Range/Units 02:41 06:45 WBC 16.8 H (4.5-11.0) X10^3/uL RBC 3.48 L (4.5-5.9) X10^6/uL Hgb 9.7 L (13.5-17.5) g/dL Hct 29.0 L (41-53) % MCV 83.4 (80-100) fL MCH 27.8 (26-34) PG MCHC 33.3 (30-36) % RDW 15.4 H (11.6-14.8) % Plt Count 262 (150-400) X10^3/uL Neut % (Auto) 86.8 H (50-75) % Lymph % (Auto) 5.8 L (25-40) % Stark % (Auto) 5.7 (3-14) % Eos % (Auto) 0.8 L (2-4) % Baso % (Auto) 0.9 (0-2) % Neut # (Auto) 69785 H (2945-0678) /uL Lymph # (Auto) 1000 L (2086-4475) /uL Stark # (Auto) 1000 H (0-900) /uL Eos # (Auto) 100 (0-450) /uL Baso # (Auto) 200 H (0-100) /uL PT (9.4-12.5) SECONDS INR (0.9-1.3) APTT (25.1-36.5) SECONDS Sodium 131 L (137-145) mmol/L Potassium 2.7 L* (3.4-5.1) mmol/L Chloride 96 L (98-107) mmol/L Carbon Dioxide 26 (22-32) mmol/L BUN 78 H (9-20) mg/dL Creatinine 3.09 H (0.66-1.25) mg/dL Estimated GFR 20 L (>60) mL/min BUN/Creatinine Ratio 25.2 H (6-22) Glucose 160 H (80-110) mg/dL Lactate (0.7-2.1) mmol/L Calcium 7.0 L (8.4-10.2) mg/dL Magnesium 2.0 (1.6-2.3) mg/dL Total Bilirubin 1.1 (0.2-1.3) mg/dL AST 39 (17-59) IU/L ALT 17 (<50) IU/L Alkaline Phosphatase 222 H (38-126) U/L Total Creatine Kinase 704 H (55-170) U/L Troponin I 0.065 H (0.01-0.034) ng/mL NT-Pro-B Natriuret Pep 4200 H (<450) pg/mL Total Protein 5.7 L (6.3-8.2) g/dL Albumin 2.7 L (3.5-5.0) g/dL Globulin 3.0 (1.7-4.1) g/dL Albumin/Globulin Ratio 0.9 L (1.0-2.8) Lipase 256 (23-300) U/L Urine Color Yellow Urine Appearance Clear Urine pH 5.0 (4.5-8.0) Ur Specific Clayton >=1.030 H (1.000-1.035) Urine Protein 3+ H (Negative) Urine Glucose (UA) Trace H (Negative) g/dL Urine Ketones Negative (NEGATIVE) Urine Occult Blood 1+ H (Negative) Urine Nitrate Positive H (Negative) Urine Bilirubin 2+ H (NEGATIVE) Ur Bilirubin Confirm TNP Urine Urobilinogen 0.2 (0.2) E.U./dL Ur Leukocyte Esterase Negative (NEGATIVE) Urine RBC 1-5/hpf (0-5/HPF) Urine WBC None seen (0-5/HPF) Ur Squamous Epith Cells 0-1 /hpf (0-5/HPF) Urine Bacteria Moderate (10-30) H (None) Ur Culture Indicated? Specimen cultured Chlamy pneumoniae PCR (Not Detect) Adenovirus (PCR) (Not Detect) B.parapertussis DNA PCR (Not Detecte) Coronavirus OC43 (PCR) (Not Detect) Coronavirus HKU1 (PCR) (Not Detect) Coronavirus 229E (PCR) (Not Detect) SARS-CoV-2 (PCR) (Not Detecte) Coronavirus NL63 (PCR) (Not Detect) Human Metapneumovir PCR (Not Detect) Influenza Type A (PCR) (Not Detect) Influenza Type B (PCR) (Not Detect) M. pneumoniae (PCR) (Not Detect) Parainfluenza 1 (PCR) (Not Detect) Parainfluenza 2 (PCR) (Not Detect) Parainfluenza 3 (PCR) (Not Detect) Parainfluenza 4 (PCR) (Not Detect) RSV (PCR) (Not Detect) Entero/Rhino (PCR) (Not Detect) Blood Type Antibody Screen Crossmatch Point of Care Testing Glucose POC 164 Point of care testing: Point of Care Testing Glucose POC [address] abd from 01/16/23: Radiologist's Impression: FINDINGS: Image quality: Excellent. Lung bases: Unremarkable. Heart: No significant findings. ABDOMEN: Liver: Stable 2.1 cm lesion in segment 6. Gallbladder: Gallbladder is either absent or decompressed. Biliary ducts: Intrahepatic biliary ducts present. There is pneumobilia, with some peripheral ductal dilation predominantly on the right side. Pancreas: Fat stranding at the pancreatic head. Spleen: Size is within normal limits. Adrenal Glands: No adrenal nodules. Kidneys and Ureters: No hydronephrosis. No solid mass. No complex renal cystic lesion which requires follow up. Stomach and Bowel: Abnormal thickening of the duodenal bulb (series 4, image 24). Surrounding cystic changes are present, not significantly changed from prior. Colonic diverticulosis without evidence of diverticulitis. Peritoneum: No abnormal intraperitoneal fluid. No free air. Ventral Wall: No hernia. Abdominal Nodes: Adenopathy about the wilda hepatis. Vessels: Aorta and inferior vena cava are normal in size. PELVIS: Pelvic Organs: Unremarkable. Bladder: Unremarkable. Pelvic Nodes: No enlarged lymph nodes. Miscellaneous: No inguinal hernias are seen. 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 IMPRESSION: No findings to explain the patient's rectal bleeding. Similar inflammatory changes centered about the duodenal bulb, with surrounding cystic change. Biliary stents are present, with pneumobilia, usually indicating patency. 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 Wilda hepatis lymphadenopathy is also present. Stable 2.1 cm right hepatic lesion. Dictated by: Herbert Umaña M.D. on 01/16/2023 at 11:51 MDM Narrative Medical decision making narrative: CC: Weakness Complicating co-morbidities: Recent hospitalizations for choledocholithiasis, ascending cholangitis pancreatic stent in place in July, right lower extremity peripheral vascular disease with stent placed and great toe amputation in September Data collected from: patient Medical records reviewed: Primary care note from 2 days ago reviewed. Colonoscopy the scheduled for 01 23. Notes from [facility] admission reviewed with final diagnosis of choledocholithiasis and ascending cholangitis July of 2022. With this visit he was found to have a right hepatic lobe abscess and was on prolonged course of oral Cipro and metronidazole. Follow-up MRI of the abdomen in August shows decreasing size of the right hepatic lobe presumed abscess. Notes from Gastroenterology with repeat ERCP and stent removal in September. EGD reviewed from September 15 does not suggest gastric or duodenal ulceration. Patient was admitted at the end of September and had a right great toe amputation was treated with cefdinir and doxycycline. Differential considered: Sepsis, ascending cholangitis, choledocholithiasis, pancreatic cancer, bleeding gastric ulcer Exam documented above, pertinent findings include: Tachypnea, tachycardia, epigastric pain reproducible on exam. He is pale but not diaphoretic Lab Test results independently reviewed as above. Pertinent findings: CBC shows a white count of 21.6, chronic stable anemia, platelets chronically elevated at 473 PT slightly elevated 15.7 and PTT is within normal limits Chemistries are decidedly abnormal with acute renal failure creatinine of 3.27, potassium of 2.7 elevated BUN elevated glucose Alkaline phosphatase is trending down ALT AST and bilirubin are appropriate at this time Lactic acid is 1.6 Independently reviewed EKG: Sinus rhythm at a rate of 91. Poor baseline. Lateral ST changes without ST elevations Imaging studies independently reviewed: See results for CT scan from January 16 above Chest x-ray shows cardiomegaly, interstitial prominences suggesting CHF but poor inspiratory effort as well Consultations: Treatments:2 units PRBC, IV Protonix, TXA. Re-evaluations: 330pm Repeat H&H drawn due to increasing hypoxia shows a drop from 10.5 and 31.3-6.3 and 19. Crossmatch blood is now available. 2 units will be started along with TXA. Third peripheral IV line will be started. Records are being faxed to [facility] to see if they will be able to accept this gentleman. Re-evaluation after 2nd unit of blood and patient looks significantly better, much more color to his cheeks overall, blood pressure is improved. Repeat H&H after 2 units of packed cells is 10.2 and 30.2. Discussion: 69-year-old gentleman with complex medical history including CT scan done for rectal bleeding on January 16 showing inflammatory changes around the duodenal bulb with surrounding cystic changes, biliary stents with pneumobilia suggesting patent stents. 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 Wilda hepatis lymphadenopathy also noted. He was reporting darker stools but not black with some blood mixed in and then this morning noted coffee-ground emesis. Initial H&H was minimally changed however his heart rate continued to increase as did his oxygen requirements. Repeat H&H was dramatically decreased and 2 units of blood were given along with TXA. There is an excellent response to blood products. We do have a phone call out to [facility]. Like to transfer him back there as his original care for the choledocholithiasis ascending cholangitis in the pancreatic stents have all been there and GI consultation with the ability to do ERCP is going to be needed. Additionally, he is showing signs of acute renal failure with creatinine typically in the 1 range bumped up to 3.27. Hopefully this is volume related but will likely need Nephrology consultation. At this time I am still concerned for possibility of the ascending cholangitis but obviously is having an upper GI bleed as well. He continues on Protonix, he was given Zosyn as well. Additional Information: Severe Sepsis Criteria [ x] bacterial source of infection suspected and documented [ ] 2 SIRS Criteria met [ ] HR >90 [ ] RR >20 [ ] fever or hypothermia [x ] leukocytosis/leukopenia/bandemia [ ] Evidence of at least 1 organ system dysfunction [ ] Lactate > 2 [ x ] BP < 90 or MAP <65, >40mm decrease from normal baseline [ x ] Creat > 2.0 [ ] T. Bili > 2.0 [ ] platelet count < 100k [ ] altered mental status [ ] mechanical ventilation [ ] provider documentation of severe sepsis Severe Sepsis Determination. the patient has been screened and [ x ] DOES meet criteria for severe sepsis [ ] DOES NOT meet criteria for severe sepsis Goal directed treatment Within 3 hours [ x ] blood cx drawn prior to abx [ x ] broad spectrum abx started [ x ] lactic acid level checked [ ] lactic redrawn within 6 hours if >2.0 Septic Shock Criteria [ ] lactic > 4 at any time [ ] SBP ,90 or MAP , 65 [ ] documentation of septic shock Time Septic Shock diagnosed: [ ] Septic Shock Determination. the patient has been screened and [ ] DOES meet criteria for septic shock [ x ] DOES NOT meet criteria for septic shock Goal directed therapy within 3 hours of septic shock or initial hypotension [ ] 30ml/kg fluid [ ] ABW used [ ] IBW (33.6) used due to BMI > 30 [ ] patient or advocate declining fluid administration after shared decision making conversation Clinical reason for NOT initiating fluid bolus: Within 6 hours (if continued hypotension after fluids or initial lactate >4) [ ] repeat volume status and tissue perfusion assessment documented after fluid bolus was completed at [Date/Time] Must include vital signs, cardiopulmonary exam, capillary refill, peripheral pulse evaluation, skin exam [ ] Initiate vasopressor therapy if persistent hypotension after adequate fluid bolus <Anil Jones, - Last Filed: 01/22/23 19:19> Medical Records Medical records reviewed: Yes I reviewed the patient's medical records. Lab Data Lab results reviewed: Yes I reviewed the patient's lab results. Labs: Lab Results 01/21/23 01/21/23 01/21/23 Range/Units 12:35 15:05 15:15 WBC 21.6 H (4.5-11.0) X10^3/uL RBC 3.80 L (4.5-5.9) X10^6/uL Hgb 10.5 L 6.3 L* (13.5-17.5) g/dL Hct 31.3 L 19.0 L* (41-53) % MCV 82.3 (80-100) fL MCH 27.5 (26-34) PG MCHC 33.4 (30-36) % RDW 15.0 H (11.6-14.8) % Plt Count 473 H (150-400) X10^3/uL Neut % (Auto) 89.2 H (50-75) % Lymph % (Auto) 5.3 L (25-40) % Stark % (Auto) 5.1 (3-14) % Eos % (Auto) 0.0 L (2-4) % Baso % (Auto) 0.4 (0-2) % Neut # (Auto) 93560 H (4822-7871) /uL Lymph # (Auto) 1100 (0883-7763) /uL Stark # (Auto) 1100 H (0-900) /uL Eos # (Auto) 0 (0-450) /uL Baso # (Auto) 100 (0-100) /uL PT 15.7 H (9.4-12.5) SECONDS INR 1.4 H (0.9-1.3) APTT 25 L (25.1-36.5) SECONDS Sodium 133 L (137-145) mmol/L Potassium 2.7 L* (3.4-5.1) mmol/L Chloride 80 L (98-107) mmol/L Carbon Dioxide 38 H (22-32) mmol/L BUN 76 H (9-20) mg/dL Creatinine 3.27 H (0.66-1.25) mg/dL Estimated GFR 19 L (>60) mL/min BUN/Creatinine Ratio 23.2 H (6-22) Glucose 256 H (80-110) mg/dL Lactate 1.6 (0.7-2.1) mmol/L Calcium 8.5 (8.4-10.2) mg/dL Magnesium (1.6-2.3) mg/dL Total Bilirubin 1.1 (0.2-1.3) mg/dL AST 25 (17-59) IU/L ALT 20 (<50) IU/L Alkaline Phosphatase 293 H (38-126) U/L Total Creatine Kinase (55-170) U/L Troponin I (0.01-0.034) ng/mL NT-Pro-B Natriuret Pep (<450) pg/mL Total Protein 7.2 (6.3-8.2) g/dL Albumin 3.6 (3.5-5.0) g/dL Globulin 3.6 (1.7-4.1) g/dL Albumin/Globulin Ratio 1.0 (1.0-2.8) Lipase (23-300) U/L Urine Color Urine Appearance Urine pH (4.5-8.0) Ur Specific Clayton (1.000-1.035) Urine Protein (Negative) Urine Glucose (UA) (Negative) g/dL Urine Ketones (NEGATIVE) Urine Occult Blood (Negative) Urine Nitrate (Negative) Urine Bilirubin (NEGATIVE) Ur Bilirubin Confirm Urine Urobilinogen (0.2) E.U./dL Ur Leukocyte Esterase (NEGATIVE) Urine RBC (0-5/HPF) Urine WBC (0-5/HPF) Ur Squamous Epith Cells (0-5/HPF) Urine Bacteria (None) Ur Culture Indicated? Chlamy pneumoniae PCR (Not Detect) Adenovirus (PCR) (Not Detect) B.parapertussis DNA PCR (Not Detecte) Coronavirus OC43 (PCR) (Not Detect) Coronavirus HKU1 (PCR) (Not Detect) Coronavirus 229E (PCR) (Not Detect) SARS-CoV-2 (PCR) (Not Detecte) Coronavirus NL63 (PCR) (Not Detect) Human Metapneumovir PCR (Not Detect) Influenza Type A (PCR) (Not Detect) Influenza Type B (PCR) (Not Detect) M. pneumoniae (PCR) (Not Detect) Parainfluenza 1 (PCR) (Not Detect) Parainfluenza 2 (PCR) (Not Detect) Parainfluenza 3 (PCR) (Not Detect) Parainfluenza 4 (PCR) (Not Detect) RSV (PCR) (Not Detect) Entero/Rhino (PCR) (Not Detect) Blood Type B Positive Cancelled Antibody Screen Negative Cancelled Crossmatch See Detail See Detail 01/21/23 01/21/23 01/21/23 Range/Units 16:55 23:18 23:20 WBC 19.1 H (4.5-11.0) X10^3/uL RBC 3.52 L (4.5-5.9) X10^6/uL Hgb 10.2 L 9.8 L (13.5-17.5) g/dL Hct 30.2 L 29.0 L (41-53) % MCV 82.4 (80-100) fL MCH 27.9 (26-34) PG MCHC 33.8 (30-36) % RDW 15.4 H (11.6-14.8) % Plt Count 304 (150-400) X10^3/uL Neut % (Auto) 87.3 H (50-75) % Lymph % (Auto) 6.6 L (25-40) % Stark % (Auto) 5.1 (3-14) % Eos % (Auto) 0.2 L (2-4) % Baso % (Auto) 0.8 (0-2) % Neut # (Auto) 69291 H (7325-7818) /uL Lymph # (Auto) 1300 (9203-8358) /uL Stark # (Auto) 1000 H (0-900) /uL Eos # (Auto) 0 (0-450) /uL Baso # (Auto) 200 H (0-100) /uL PT (9.4-12.5) SECONDS INR (0.9-1.3) APTT (25.1-36.5) SECONDS Sodium 131 L (137-145) mmol/L Potassium 2.6 L* (3.4-5.1) mmol/L Chloride 90 L (98-107) mmol/L Carbon Dioxide 30 (22-32) mmol/L BUN 81 H (9-20) mg/dL Creatinine 3.31 H (0.66-1.25) mg/dL Estimated GFR 18 L (>60) mL/min BUN/Creatinine Ratio 24.5 H (6-22) Glucose 180 H (80-110) mg/dL Lactate (0.7-2.1) mmol/L Calcium 7.1 L (8.4-10.2) mg/dL Magnesium (1.6-2.3) mg/dL Total Bilirubin (0.2-1.3) mg/dL AST (17-59) IU/L ALT (<50) IU/L Alkaline Phosphatase (38-126) U/L Total Creatine Kinase (55-170) U/L Troponin I (0.01-0.034) ng/mL NT-Pro-B Natriuret Pep (<450) pg/mL Total Protein (6.3-8.2) g/dL Albumin (3.5-5.0) g/dL Globulin (1.7-4.1) g/dL Albumin/Globulin Ratio (1.0-2.8) Lipase (23-300) U/L Urine Color Urine Appearance Urine pH (4.5-8.0) Ur Specific Clayton (1.000-1.035) Urine Protein (Negative) Urine Glucose (UA) (Negative) g/dL Urine Ketones (NEGATIVE) Urine Occult Blood (Negative) Urine Nitrate (Negative) Urine Bilirubin (NEGATIVE) Ur Bilirubin Confirm Urine Urobilinogen (0.2) E.U./dL Ur Leukocyte Esterase (NEGATIVE) Urine RBC (0-5/HPF) Urine WBC (0-5/HPF) Ur Squamous Epith Cells (0-5/HPF) Urine Bacteria (None) Ur Culture Indicated? Chlamy pneumoniae PCR Not detected (Not Detect) Adenovirus (PCR) Not detected (Not Detect) B.parapertussis DNA PCR Not detected (Not Detecte) Coronavirus OC43 (PCR) Not detected (Not Detect) Coronavirus HKU1 (PCR) Not detected (Not Detect) Coronavirus 229E (PCR) Not detected (Not Detect) SARS-CoV-2 (PCR) Not detected (Not Detecte) Coronavirus NL63 (PCR) Not detected (Not Detect) Human Metapneumovir PCR Not detected (Not Detect) Influenza Type A (PCR) Not detected (Not Detect) Influenza Type B (PCR) Not detected (Not Detect) M. pneumoniae (PCR) Not detected (Not Detect) Parainfluenza 1 (PCR) Not detected (Not Detect) Parainfluenza 2 (PCR) Not detected (Not Detect) Parainfluenza 3 (PCR) Not detected (Not Detect) Parainfluenza 4 (PCR) Not detected (Not Detect) RSV (PCR) Not detected (Not Detect) Entero/Rhino (PCR) Not detected (Not Detect) Blood Type Antibody Screen Crossmatch 01/22/23 01/22/23 Range/Units 02:41 06:45 WBC 16.8 H (4.5-11.0) X10^3/uL RBC 3.48 L (4.5-5.9) X10^6/uL Hgb 9.7 L (13.5-17.5) g/dL Hct 29.0 L (41-53) % MCV 83.4 (80-100) fL MCH 27.8 (26-34) PG MCHC 33.3 (30-36) % RDW 15.4 H (11.6-14.8) % Plt Count 262 (150-400) X10^3/uL Neut % (Auto) 86.8 H (50-75) % Lymph % (Auto) 5.8 L (25-40) % Stark % (Auto) 5.7 (3-14) % Eos % (Auto) 0.8 L (2-4) % Baso % (Auto) 0.9 (0-2) % Neut # (Auto) 34784 H (1224-0811) /uL Lymph # (Auto) 1000 L (2790-5852) /uL Stark # (Auto) 1000 H (0-900) /uL Eos # (Auto) 100 (0-450) /uL Baso # (Auto) 200 H (0-100) /uL PT (9.4-12.5) SECONDS INR (0.9-1.3) APTT (25.1-36.5) SECONDS Sodium 131 L (137-145) mmol/L Potassium 2.7 L* (3.4-5.1) mmol/L Chloride 96 L (98-107) mmol/L Carbon Dioxide 26 (22-32) mmol/L BUN 78 H (9-20) mg/dL Creatinine 3.09 H (0.66-1.25) mg/dL Estimated GFR 20 L (>60) mL/min BUN/Creatinine Ratio 25.2 H (6-22) Glucose 160 H (80-110) mg/dL Lactate (0.7-2.1) mmol/L Calcium 7.0 L (8.4-10.2) mg/dL Magnesium 2.0 (1.6-2.3) mg/dL Total Bilirubin 1.1 (0.2-1.3) mg/dL AST 39 (17-59) IU/L ALT 17 (<50) IU/L Alkaline Phosphatase 222 H (38-126) U/L Total Creatine Kinase 704 H (55-170) U/L Troponin I 0.065 H (0.01-0.034) ng/mL NT-Pro-B Natriuret Pep 4200 H (<450) pg/mL Total Protein 5.7 L (6.3-8.2) g/dL Albumin 2.7 L (3.5-5.0) g/dL Globulin 3.0 (1.7-4.1) g/dL Albumin/Globulin Ratio 0.9 L (1.0-2.8) Lipase 256 (23-300) U/L Urine Color Yellow Urine Appearance Clear Urine pH 5.0 (4.5-8.0) Ur Specific Clayton >=1.030 H (1.000-1.035) Urine Protein 3+ H (Negative) Urine Glucose (UA) Trace H (Negative) g/dL Urine Ketones Negative (NEGATIVE) Urine Occult Blood 1+ H (Negative) Urine Nitrate Positive H (Negative) Urine Bilirubin 2+ H (NEGATIVE) Ur Bilirubin Confirm TNP Urine Urobilinogen 0.2 (0.2) E.U./dL Ur Leukocyte Esterase Negative (NEGATIVE) Urine RBC 1-5/hpf (0-5/HPF) Urine WBC None seen (0-5/HPF) Ur Squamous Epith Cells 0-1 /hpf (0-5/HPF) Urine Bacteria Moderate (10-30) H (None) Ur Culture Indicated? Specimen cultured Chlamy pneumoniae PCR (Not Detect) Adenovirus (PCR) (Not Detect) B.parapertussis DNA PCR (Not Detecte) Coronavirus OC43 (PCR) (Not Detect) Coronavirus HKU1 (PCR) (Not Detect) Coronavirus 229E (PCR) (Not Detect) SARS-CoV-2 (PCR) (Not Detecte) Coronavirus NL63 (PCR) (Not Detect) Human Metapneumovir PCR (Not Detect) Influenza Type A (PCR) (Not Detect) Influenza Type B (PCR) (Not Detect) M. pneumoniae (PCR) (Not Detect) Parainfluenza 1 (PCR) (Not Detect) Parainfluenza 2 (PCR) (Not Detect) Parainfluenza 3 (PCR) (Not Detect) Parainfluenza 4 (PCR) (Not Detect) RSV (PCR) (Not Detect) Entero/Rhino (PCR) (Not Detect) Blood Type Antibody Screen Crossmatch Point of Care Testing Glucose POC 164 Point of care testing: Point of Care Testing Glucose POC 164 <Luly Huertas, DO - Last Filed: 01/22/23 15:21> Lab Data Labs: Lab Results 01/21/23 01/21/23 01/21/23 Range/Units 12:35 15:05 15:15 WBC 21.6 H (4.5-11.0) X10^3/uL RBC 3.80 L (4.5-5.9) X10^6/uL Hgb 10.5 L 6.3 L* (13.5-17.5) g/dL Hct 31.3 L 19.0 L* (41-53) % MCV 82.3 (80-100) fL MCH 27.5 (26-34) PG MCHC 33.4 (30-36) % RDW 15.0 H (11.6-14.8) % Plt Count 473 H (150-400) X10^3/uL Neut % (Auto) 89.2 H (50-75) % Lymph % (Auto) 5.3 L (25-40) % Stark % (Auto) 5.1 (3-14) % Eos % (Auto) 0.0 L (2-4) % Baso % (Auto) 0.4 (0-2) % Neut # (Auto) 17356 H (5390-7718) /uL Lymph # (Auto) 1100 (6109-7244) /uL Stark # (Auto) 1100 H (0-900) /uL Eos # (Auto) 0 (0-450) /uL Baso # (Auto) 100 (0-100) /uL PT 15.7 H (9.4-12.5) SECONDS INR 1.4 H (0.9-1.3) APTT 25 L (25.1-36.5) SECONDS Sodium 133 L (137-145) mmol/L Potassium 2.7 L* (3.4-5.1) mmol/L Chloride 80 L (98-107) mmol/L Carbon Dioxide 38 H (22-32) mmol/L BUN 76 H (9-20) mg/dL Creatinine 3.27 H (0.66-1.25) mg/dL Estimated GFR 19 L (>60) mL/min BUN/Creatinine Ratio 23.2 H (6-22) Glucose 256 H (80-110) mg/dL Lactate 1.6 (0.7-2.1) mmol/L Calcium 8.5 (8.4-10.2) mg/dL Magnesium (1.6-2.3) mg/dL Total Bilirubin 1.1 (0.2-1.3) mg/dL AST 25 (17-59) IU/L ALT 20 (<50) IU/L Alkaline Phosphatase 293 H (38-126) U/L Total Creatine Kinase (55-170) U/L Troponin I (0.01-0.034) ng/mL NT-Pro-B Natriuret Pep (<450) pg/mL Total Protein 7.2 (6.3-8.2) g/dL Albumin 3.6 (3.5-5.0) g/dL Globulin 3.6 (1.7-4.1) g/dL Albumin/Globulin Ratio 1.0 (1.0-2.8) Lipase (23-300) U/L Urine Color Urine Appearance Urine pH (4.5-8.0) Ur Specific Clayton (1.000-1.035) Urine Protein (Negative) Urine Glucose (UA) (Negative) g/dL Urine Ketones (NEGATIVE) Urine Occult Blood (Negative) Urine Nitrate (Negative) Urine Bilirubin (NEGATIVE) Ur Bilirubin Confirm Urine Urobilinogen (0.2) E.U./dL Ur Leukocyte Esterase (NEGATIVE) Urine RBC (0-5/HPF) Urine WBC (0-5/HPF) Ur Squamous Epith Cells (0-5/HPF) Urine Bacteria (None) Ur Culture Indicated? Chlamy pneumoniae PCR (Not Detect) Adenovirus (PCR) (Not Detect) B.parapertussis DNA PCR (Not Detecte) Coronavirus OC43 (PCR) (Not Detect) Coronavirus HKU1 (PCR) (Not Detect) Coronavirus 229E (PCR) (Not Detect) SARS-CoV-2 (PCR) (Not Detecte) Coronavirus NL63 (PCR) (Not Detect) Human Metapneumovir PCR (Not Detect) Influenza Type A (PCR) (Not Detect) Influenza Type B (PCR) (Not Detect) M. pneumoniae (PCR) (Not Detect) Parainfluenza 1 (PCR) (Not Detect) Parainfluenza 2 (PCR) (Not Detect) Parainfluenza 3 (PCR) (Not Detect) Parainfluenza 4 (PCR) (Not Detect) RSV (PCR) (Not Detect) Entero/Rhino (PCR) (Not Detect) Blood Type B Positive Cancelled Antibody Screen Negative Cancelled Crossmatch See Detail See Detail 01/21/23 01/21/23 01/21/23 Range/Units 16:55 23:18 23:20 WBC 19.1 H (4.5-11.0) X10^3/uL RBC 3.52 L (4.5-5.9) X10^6/uL Hgb 10.2 L 9.8 L (13.5-17.5) g/dL Hct 30.2 L 29.0 L (41-53) % MCV 82.4 (80-100) fL MCH 27.9 (26-34) PG MCHC 33.8 (30-36) % RDW 15.4 H (11.6-14.8) % Plt Count 304 (150-400) X10^3/uL Neut % (Auto) 87.3 H (50-75) % Lymph % (Auto) 6.6 L (25-40) % Stark % (Auto) 5.1 (3-14) % Eos % (Auto) 0.2 L (2-4) % Baso % (Auto) 0.8 (0-2) % Neut # (Auto) 81114 H (9863-8820) /uL Lymph # (Auto) 1300 (9604-9584) /uL Stark # (Auto) 1000 H (0-900) /uL Eos # (Auto) 0 (0-450) /uL Baso # (Auto) 200 H (0-100) /uL PT (9.4-12.5) SECONDS INR (0.9-1.3) APTT (25.1-36.5) SECONDS Sodium 131 L (137-145) mmol/L Potassium 2.6 L* (3.4-5.1) mmol/L Chloride 90 L (98-107) mmol/L Carbon Dioxide 30 (22-32) mmol/L BUN 81 H (9-20) mg/dL Creatinine 3.31 H (0.66-1.25) mg/dL Estimated GFR 18 L (>60) mL/min BUN/Creatinine Ratio 24.5 H (6-22) Glucose 180 H (80-110) mg/dL Lactate (0.7-2.1) mmol/L Calcium 7.1 L (8.4-10.2) mg/dL Magnesium (1.6-2.3) mg/dL Total Bilirubin (0.2-1.3) mg/dL AST (17-59) IU/L ALT (<50) IU/L Alkaline Phosphatase (38-126) U/L Total Creatine Kinase (55-170) U/L Troponin I (0.01-0.034) ng/mL NT-Pro-B Natriuret Pep (<450) pg/mL Total Protein (6.3-8.2) g/dL Albumin (3.5-5.0) g/dL Globulin (1.7-4.1) g/dL Albumin/Globulin Ratio (1.0-2.8) Lipase (23-300) U/L Urine Color Urine Appearance Urine pH (4.5-8.0) Ur Specific Clayton (1.000-1.035) Urine Protein (Negative) Urine Glucose (UA) (Negative) g/dL Urine Ketones (NEGATIVE) Urine Occult Blood (Negative) Urine Nitrate (Negative) Urine Bilirubin (NEGATIVE) Ur Bilirubin Confirm Urine Urobilinogen (0.2) E.U./dL Ur Leukocyte Esterase (NEGATIVE) Urine RBC (0-5/HPF) Urine WBC (0-5/HPF) Ur Squamous Epith Cells (0-5/HPF) Urine Bacteria (None) Ur Culture Indicated? Chlamy pneumoniae PCR Not detected (Not Detect) Adenovirus (PCR) Not detected (Not Detect) B.parapertussis DNA PCR Not detected (Not Detecte) Coronavirus OC43 (PCR) Not detected (Not Detect) Coronavirus HKU1 (PCR) Not detected (Not Detect) Coronavirus 229E (PCR) Not detected (Not Detect) SARS-CoV-2 (PCR) Not detected (Not Detecte) Coronavirus NL63 (PCR) Not detected (Not Detect) Human Metapneumovir PCR Not detected (Not Detect) Influenza Type A (PCR) Not detected (Not Detect) Influenza Type B (PCR) Not detected (Not Detect) M. pneumoniae (PCR) Not detected (Not Detect) Parainfluenza 1 (PCR) Not detected (Not Detect) Parainfluenza 2 (PCR) Not detected (Not Detect) Parainfluenza 3 (PCR) Not detected (Not Detect) Parainfluenza 4 (PCR) Not detected (Not Detect) RSV (PCR) Not detected (Not Detect) Entero/Rhino (PCR) Not detected (Not Detect) Blood Type Antibody Screen Crossmatch 01/22/23 01/22/23 Range/Units 02:41 06:45 WBC 16.8 H (4.5-11.0) X10^3/uL RBC 3.48 L (4.5-5.9) X10^6/uL Hgb 9.7 L (13.5-17.5) g/dL Hct 29.0 L (41-53) % MCV 83.4 (80-100) fL MCH 27.8 (26-34) PG MCHC 33.3 (30-36) % RDW 15.4 H (11.6-14.8) % Plt Count 262 (150-400) X10^3/uL Neut % (Auto) 86.8 H (50-75) % Lymph % (Auto) 5.8 L (25-40) % Stark % (Auto) 5.7 (3-14) % Eos % (Auto) 0.8 L (2-4) % Baso % (Auto) 0.9 (0-2) % Neut # (Auto) 98543 H (1254-5550) /uL Lymph # (Auto) 1000 L (4730-4891) /uL Stark # (Auto) 1000 H (0-900) /uL Eos # (Auto) 100 (0-450) /uL Baso # (Auto) 200 H (0-100) /uL PT (9.4-12.5) SECONDS INR (0.9-1.3) APTT (25.1-36.5) SECONDS Sodium 131 L (137-145) mmol/L Potassium 2.7 L* (3.4-5.1) mmol/L Chloride 96 L (98-107) mmol/L Carbon Dioxide 26 (22-32) mmol/L BUN 78 H (9-20) mg/dL Creatinine 3.09 H (0.66-1.25) mg/dL Estimated GFR 20 L (>60) mL/min BUN/Creatinine Ratio 25.2 H (6-22) Glucose 160 H (80-110) mg/dL Lactate (0.7-2.1) mmol/L Calcium 7.0 L (8.4-10.2) mg/dL Magnesium 2.0 (1.6-2.3) mg/dL Total Bilirubin 1.1 (0.2-1.3) mg/dL AST 39 (17-59) IU/L ALT 17 (<50) IU/L Alkaline Phosphatase 222 H (38-126) U/L Total Creatine Kinase 704 H (55-170) U/L Troponin I 0.065 H (0.01-0.034) ng/mL NT-Pro-B Natriuret Pep 4200 H (<450) pg/mL Total Protein 5.7 L (6.3-8.2) g/dL Albumin 2.7 L (3.5-5.0) g/dL Globulin 3.0 (1.7-4.1) g/dL Albumin/Globulin Ratio 0.9 L (1.0-2.8) Lipase 256 (23-300) U/L Urine Color Yellow Urine Appearance Clear Urine pH 5.0 (4.5-8.0) Ur Specific Clayton >=1.030 H (1.000-1.035) Urine Protein 3+ H (Negative) Urine Glucose (UA) Trace H (Negative) g/dL Urine Ketones Negative (NEGATIVE) Urine Occult Blood 1+ H (Negative) Urine Nitrate Positive H (Negative) Urine Bilirubin 2+ H (NEGATIVE) Ur Bilirubin Confirm TNP Urine Urobilinogen 0.2 (0.2) E.U./dL Ur Leukocyte Esterase Negative (NEGATIVE) Urine RBC 1-5/hpf (0-5/HPF) Urine WBC None seen (0-5/HPF) Ur Squamous Epith Cells 0-1 /hpf (0-5/HPF) Urine Bacteria Moderate (10-30) H (None) Ur Culture Indicated? Specimen cultured Chlamy pneumoniae PCR (Not Detect) Adenovirus (PCR) (Not Detect) B.parapertussis DNA PCR (Not Detecte) Coronavirus OC43 (PCR) (Not Detect) Coronavirus HKU1 (PCR) (Not Detect) Coronavirus 229E (PCR) (Not Detect) SARS-CoV-2 (PCR) (Not Detecte) Coronavirus NL63 (PCR) (Not Detect) Human Metapneumovir PCR (Not Detect) Influenza Type A (PCR) (Not Detect) Influenza Type B (PCR) (Not Detect) M. pneumoniae (PCR) (Not Detect) Parainfluenza 1 (PCR) (Not Detect) Parainfluenza 2 (PCR) (Not Detect) Parainfluenza 3 (PCR) (Not Detect) Parainfluenza 4 (PCR) (Not Detect) RSV (PCR) (Not Detect) Entero/Rhino (PCR) (Not Detect) Blood Type Antibody Screen Crossmatch Point of Care Testing Glucose POC 164 Point of care testing: Point of Care Testing Glucose POC 164 Imaging Data US - abdomen: Radiologist's Impression: PROCEDURE: US RENAL COMPLETE INDICATIONS: RENAL FAILURE TECHNIQUE: Real-time scanning was performed of the kidneys and bladder, with image documentation. COMPARISON: None. FINDINGS: Kidneys: Kidneys are normal in size. Right kidney measures 12.2 cm long; left kidney measures 9.7 cm long. Right renal cortical thickness is 1.7 cm; left renal cortical thickness is 1.8 cm. Renal cortical echotexture is normal. No hydronephrosis or nephrolithiasis. No suspicious solid mass lesions. Bladder: A Paz catheter is present. Miscellaneous: No free pelvic fluid. IMPRESSION: No acute process. Dictated by: Tenzin Rosado M.D. on 01/22/2023 at 12:23 echo: Radiologist's Impression: nterpretation Summary There is mild concentric left ventricular hypertrophy. The ejection fraction is estimated to be 45-50%. Grade II diastolic dysfunction. The right ventricle is borderline dilated. The right ventricular systolic function is normal. There is mild tricuspid regurgitation. The right ventricular systolic pressure is estimated to be at least 46 mmHg based on an estimated right atrial pressure of 3 mm Hg. ECG Data Interpretation: Botnick- Normal sinus rhythm rate 91 HI interval 142 QRS 82 QTC 489, ST depressions V5 and V6 without ST elevations new from previous EKG EKG 2. Sinus rhythm rate [address] depressions no ST elevations or T-wave inversions MDM Narrative Medical decision making narrative: CC: Weakness Complicating co-morbidities: Recent hospitalizations for choledocholithiasis, ascending cholangitis pancreatic stent in place in July, right lower extremity peripheral vascular disease with stent placed and great toe amputation in September Data collected from: patient Medical records reviewed: Primary care note from 2 days ago reviewed. Colonoscopy the scheduled for 01 23. Notes from [facility] admission reviewed with final diagnosis of choledocholithiasis and ascending cholangitis July of 2022. With this visit he was found to have a right hepatic lobe abscess and was on prolonged course of oral Cipro and metronidazole. Follow-up MRI of the abdomen in August shows decreasing size of the right hepatic lobe presumed abscess. Notes from Gastroenterology with repeat ERCP and stent removal in September. EGD reviewed from September 15 does not suggest gastric or duodenal ulceration. Patient was admitted at the end of September and had a right great toe amputation was treated with cefdinir and doxycycline. Differential considered: Sepsis, ascending cholangitis, choledocholithiasis, pancreatic cancer, bleeding gastric ulcer Exam documented above, pertinent findings include: Tachypnea, tachycardia, epigastric pain reproducible on exam. He is pale but not diaphoretic Lab Test results independently reviewed as above. Pertinent findings: CBC shows a white count of 21.6, chronic stable anemia, platelets chronically elevated at 473 PT slightly elevated 15.7 and PTT is within normal limits Chemistries are decidedly abnormal with acute renal failure creatinine of 3.27, potassium of 2.7 elevated BUN elevated glucose Alkaline phosphatase is trending down ALT AST and bilirubin are appropriate at this time Lactic acid is 1.6 Independently reviewed EKG: Sinus rhythm at a rate of 91. Poor baseline. Lateral ST changes without ST elevations Imaging studies independently reviewed: See results for CT scan from January 16 above Chest x-ray shows cardiomegaly, interstitial prominences suggesting CHF but poor inspiratory effort as well Consultations: Treatments:2 units PRBC, IV Protonix, TXA. Re-evaluations: 330pm Repeat H&H drawn due to increasing hypoxia shows a drop from 10.5 and 31.3-6.3 and 19. Crossmatch blood is now available. 2 units will be started along with TXA. Third peripheral IV line will be started. Records are being faxed to [facility] to see if they will be able to accept this gentleman. Re-evaluation after 2nd unit of blood and patient looks significantly better, much more color to his cheeks overall, blood pressure is improved. Repeat H&H after 2 units of packed cells is 10.2 and 30.2. Discussion: 69-year-old gentleman with complex medical history including CT scan done for rectal bleeding on January 16 showing inflammatory changes around the duodenal bulb with surrounding cystic changes, biliary stents with pneumobilia suggesting patent stents. 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 Wilda hepatis lymphadenopathy also noted. He was reporting darker stools but not black with some blood mixed in and then this morning noted coffee-ground emesis. Initial H&H was minimally changed however his heart rate continued to increase as did his oxygen requirements. Repeat H&H was dramatically decreased and 2 units of blood were given along with TXA. There is an excellent response to blood products. We do have a phone call out to [facility]. Like to transfer him back there as his original care for the choledocholithiasis ascending cholangitis in the pancreatic stents have all been there and GI consultation with the ability to do ERCP is going to be needed. Additionally, he is showing signs of acute renal failure with creatinine typically in the 1 range bumped up to 3.27. Hopefully this is volume related but will likely need Nephrology consultation. At this time I am still concerned for possibility of the ascending cholangitis but obviously is having an upper GI bleed as well. He continues on Protonix, he was given Zosyn as well. 01/22/23 8:45 Dr. Huertas-received sign-out from Dr. Jones I have seen evaluated patient myself. Concern for rectal bleeding causing anemia and hypotension. Received TXA 2 units of packed red blood cells hemoglobin this morning remains stable. Blood pressure is elevated and stable no further episodes overnight. Creatinine is quite elevated without significant improvement. He is requiring oxygen, despite anemia correction. Concern for congestive heart failure BNP is elevated. Echocardiogram ordered, along with Lasix. He has persistent hypokalemia continues to get K rider infusion. Lisinopril held secondary to SANDRA. There was initial concern for biliary process with recent biliary stent and ascending cholangitis. 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 However abdomen on my exam is soft nontender no Posadas's sign no right upper quadrant pain bilirubin and AST ALT remained within limits. Leukocytosis mildly improved continues to be on Zosyn. 09:30 Dr. Cabrera surgery consulted patient is supposed to have a colonoscopy tomorrow. However there is suspicion with biliary mass unlikely bleeding from it patient would benefit from an ERCP more than a colonoscopy. Patient continues to be on a transfer list. 11:00 Dr. Doroteo Mancini GI updated on patient's symptoms test results agrees with patient needs transfer Dr.Khajuria, Internal Medicine updated on patient's symptoms test results recent studies and concerns. Accepts patient for transfer. Echocardiogram currently being done but results yet ready. 15:20 results of ultrasound and echo faxed Critical Care Time <Anil Jones, DO - Last Filed: 01/22/23 19:19> Critical Care Time Critical Care Time: Yes Total Critical Care Time: 120 Attestation: The high probability of a clinically significant, sudden or life threatening deterioration of the [respiratory, cardiovascular, renal] system(s) required my full and direct attention, intervention and personal management. The aggregate critical care time was [120] minutes. This time is in addition to time spent performing reported procedures but includes the following: [x] Data Review and interpretation [x] Patient assessment and monitoring of vital signs [x] Documentation [x] Medication orders and management Discharge Plan Departure Patient Disposition: [facility] Clinical Impression: Sepsis, Acute GI bleeding, Ascending cholangitis Acute renal failure Qualifiers: Acute renal failure type: unspecified Qualified Code(s): N17.9 - Acute kidney failure, unspecified Prescriptions: No Action gabapentin 300 mg capsule 900 mg PO BEDTIME Qty: 270 3RF lidocaine HCl [Aspercreme (lidocaine HCl)] 4 % liquid roll-on topical Hold Instructions: anemia Patient Comments: 07/25/22: pt states he has been using this on both legs for awhile. (DME) Blood Glucose Test Strip See Rx Instructions .Route Qty: 50 2RF Rx Instructions: Use 1-2x daily PRN to monitor blood sugar pantoprazole 40 mg tablet,delayed release (DR/EC) 40 mg PO ONCE Qty: 90 3RF Patient Comments: TAKE 1 TABLET BY MOUTH DAILY (DME) lancets [OneTouch Delica Plus Lancet] 30 gauge misc See Rx Instructions .Route Qty: 100 3RF Rx Instructions: Use to test blood glucose 1-2 times daily or as directed famotidine 20 mg tablet 20 mg PO BID Qty: 180 3RF sodium,potassium,mag sulfates [Suprep Bowel Prep Kit] 17.5-3.13-1.6 gram recon soln See Rx Instructions PO .COMPLEX Qty: 354 0RF Rx Instructions: take as directed by Physician (DME) lancets Misc See Rx Instructions .Route Qty: 100 3RF Rx Instructions: As directed, 1-2 times a day as needed (DME) OneTouch Verio test strips Strip See Rx Instructions .Route Qty: 100 3RF Rx Instructions: As directed. 1-2 times a day, prn lisinopril 20 mg tablet 20 mg PO DAILY Qty: 90 3RF metformin 1,000 mg tablet See Rx Instructions .ROUTE BID Qty: 180 3RF Dose Instruction: TAKE 1 TABLET BY MOUTH TWICE DAILY Rx Instructions: TAKE 1 TABLET BY MOUTH twice a day; amlodipine 5 mg tablet 5 mg PO DAILY aspirin [Adult Low Dose Aspirin] 81 mg tablet,delayed release (DR/EC) 81 mg PO DAILY cefdinir 300 mg capsule PO BID doxycycline monohydrate 100 mg capsule 100 mg PO BID carvedilol 25 mg tablet 37.5 mg PO BID potassium chloride 10 mEq tablet extended release 10 meq PO DAILY (DME) Dexcom G7 Chairman Emeritus Misc See Rx Instructions .Route Qty: 1 11RF Rx Instructions: check blood glucose daily (DME) Dexcom G7 Sensor Device See Rx Instructions .Route Qty: 1 11RF Rx Instructions: use to check blood glucose daily cinnamon bark 500 mg capsule 1,000 mg PO DAILY atorvastatin 10 mg tablet 10 mg PO DAILY Qty: 90 3RF albuterol sulfate 90 mcg/actuation HFA aerosol inhaler 1 - 2 inh inhalation Q4-6H PRN (Reason: shortness of breath or wheezing) Qty: 8.5 11RF furosemide 20 mg tablet 20 mg PO DAILY PRN Hold Instructions: Home Medication placed on hold at Doctor's office glimepiride 2 mg tablet 2 mg PO DAILY Qty: 90 3RF Rx Instructions: must take with food carvedilol 25 mg tablet 37.5 mg PO BID clopidogrel 75 mg tablet 75 mg PO DAILY gabapentin 300 mg capsule 900 mg PO ONCE PM lisinopril 20 mg tablet 20 mg PO DAILY metformin 1,000 mg tablet 1,000 mg PO BID pantoprazole 40 mg tablet,delayed release (DR/EC) 40 mg PO pantoprazole [Protonix] 40 mg tablet,delayed release (DR/EC) 40 mg PO DAILY (DME) ResMed AirSense 10 CPAP Qty: 1 Dose Instruction: As directed Patient Comments: Pressure: 7-12 cmH2O DME: [facility] Rx Instructions: As directed loratadine [Claritin] 10 mg tablet 10 mg PO DAILY Referrals: Saige Jones DO [Primary Care Provider] -
--- NOTE | 2023-01-21 14:47 | DI.RAD.S_ITS ---
PROCEDURE: XR CHEST 1V INDICATIONS: dyspnea TECHNIQUE: One view of the chest was acquired. COMPARISON: [facility], CR, XR CHEST 1V, 07/12/2022, 13:11. FINDINGS: Surgical changes and devices: None. Lungs and pleura: Lung volumes are low. There is diffuse interstitial prominence and bilateral basilar atelectasis. Mediastinum: Mediastinal contours appear normal. Heart size is enlarged. Bones and chest wall: No suspicious bony lesions. Overlying soft tissues appear unremarkable. IMPRESSION: Low lung volumes, cardiomegaly and interstitial prominence suggesting congestive failure. Dictated by: Shruthi Rodriguez M.D. on 01/21/2023 at 16:13 Approved by: Shruthi Rodriguez M.D. on 01/21/2023 at 16:14
[2023-01-21] MEDS: HYDROMORPHONE 0.5 MG INJ IV (15:04)
[2023-01-21] MEDS: ONDANSETRON 4 MG ODT SL (15:04)
[2023-01-21] MEDS: SODIUM CHLORIDE 0.9% 1,000 ML 1000 ML IV (15:04)
[2023-01-21] MEDS: PIPERACILLIN/TAZO 4.5 GM in SODIUM CHLORIDE 0.9% 100 ML IV (15:25)
[2023-01-21 15:34] LABS: Hemoglobin 6.3 g/dL (13.5-17.5)
[2023-01-21 15:45] LABS: Lactate (Lactic Acid) 1.6 mmol/L (0.7-2.1)
[2023-01-21] MEDS: TRANEXAMIC ACID 1,000 MG in SODIUM CHLORIDE 0.9% 100 ML 200 MG IV (15:47)
--- NOTE | 2023-01-21 16:11 | PC.NURSE ---
Dr. Bravo wishes for 2 units PRBC to infuse simultaneously at a bolus rate.
[2023-01-21 17:02] LABS: Hematocrit 30.2 % (41-53); Hemoglobin 10.2 g/dL (13.5-17.5)
--- NOTE | 2023-01-21 19:50 | PC.NURSE ---
Follow up with [facility] about transfer to their facility. Evening coordinator unaware of pending transfer need from day shift, she will look into availability and call back.
--- NOTE | 2023-01-21 20:27 | PC.NURSE ---
19:40 this nurse provided patient with a urinal to try to void. Patient unable to urinate. ROBINSON Carmen bladder scanned patient with a result of 10ml in the bladder. Dr. Jones notified.
--- NOTE | 2023-01-21 22:38 | PC.NURSE ---
Addendum entered by Lorna Francisco R.N. 01/22/23 00:54: The patient attempted to urinate in a urinal and then stated he did not feel like he needed to void. Patient does not express any discomfort at this time. Dr. Jones notified the urine POC has not been completed due to patient not voiding. No new orders at this time. Original Note: This nurse bladder scanned the patient and gota result of 336ml. Hte
--- NOTE | 2023-01-21 22:58 | PC.NURSE ---
0856 Follow up with [facility]. federal aid coordinator states we should probably look elsewhere for Pt. placement, she does not anticipate any movement on their end at this time. This medical front desk specialist mentioned to the house cord that this was counter to the likelihood for pt placement that was indicated from dayshift.
[2023-01-21 23:39] LABS: Add Manual Diff / Slide Review NO; Basophils Absolute Auto 200 /uL (0-100); Basophils Percent Auto 0.8 % (0-2); Eosinophils Absolute Auto 0 /uL (0-450); Eosinophils Percent Auto 0.2 % (2-4); Hemoglobin 9.8 g/dL (13.5-17.5); Lymphocytes Absolute Auto 1300 /uL (1100-4500); Lymphocytes Percent Auto 6.6 % (25-40); Mean Corpuscular HGB Conc 33.8 % (30-36); Mean Corpuscular Hemoglobin 27.9 PG (26-34); Mean Corpuscular Volume 82.4 fL (80-100); Monocytes Absolute Auto 1000 /uL (0-900); Monocytes Percent Auto 5.1 % (3-14); Neutrophils Absolute Auto 16700 /uL (1500-7000); Neutrophils Percent Auto 87.3 % (50-75); Platelet Count 304 X10^3/uL (150-400); Red Blood Cell Count 3.52 X10^6/uL (4.5-5.9); Red Cell Distribution Width 15.4 % (11.6-14.8); White Blood Cell Count 19.1 X10^3/uL (4.5-11.0)
[2023-01-21 23:44] LABS: BUN Creatinine Ratio 24.5 (6-22); Blood Urea Nitrogen 81 mg/dL (9-20); Calcium 7.1 mg/dL (8.4-10.2); Carbon Dioxide 30 mmol/L (22-32); Chloride 90 mmol/L (98-107); Estimated Glomerular Filt Rate 18 mL/min (>60); Glucose 180 mg/dL (80-110); HEMOLYSIS < 15 (0-50); Sodium 131 mmol/L (137-145)
[2023-01-21 23:46] LABS: Potassium 2.6 mmol/L (3.4-5.1)
[2023-01-21] MEDS: SODIUM CHLORIDE 0.9% 1,000 ML 75 ML IV (23:49)
[2023-01-21] MEDS: PIPERACILLIN/TAZO 3.375 GM in SODIUM CHLORIDE 0.9% 100 ML IV (23:58)
[2023-01-22] VITALS (50 sets, daily range): BP systolic 107–158; BP diastolic 57–72; PULSE 75–85; RESP 17–31; TEMP 36.6–36.7; O2SAT 88–98
[2023-01-22] MEDS: POTASSIUM CHLORIDE IN WATER 10 MEQ/100 ML PIGGYBACK 100 MEQ IV ×8 (00:10→11:12)
[2023-01-22 00:32] LABS: Adenovirus Not Detected (Not Detect); B. parapertussis Not Detected (Not Detecte); Bordetella pertussis Not Detected (Not Detect); Chlamydophila pneumoniae Not Detected (Not Detect); Coronavirus 229E Not Detected (Not Detect); Coronavirus HKU1 Not Detected (Not Detect); Coronavirus NL 63 Not Detected (Not Detect); Coronavirus OC43 Not Detected (Not Detect); Human Metapneumovirus Not Detected (Not Detect); Human Rhinovirus/Enterovirus Not Detected (Not Detect); Influenza A Not Detected (Not Detect); Influenza B Not Detected (Not Detect); Mycoplasma pneumoniae Not Detected (Not Detect); Parainfluenza Virus 1 Not Detected (Not Detect); Parainfluenza Virus 2 Not Detected (Not Detect); Parainfluenza Virus 3 Not Detected (Not Detect); Parainfluenza Virus 4 Not Detected (Not Detect); Respiratory Syncytial Virus Not Detected (Not Detect); SARS- CoV-2 Not Detected (Not Detecte)
--- NOTE | 2023-01-22 00:38 | PC.NURSE ---
Pt on list with [facility], and [facility]. No beds or list available at [facility], [facility], or [facility]
--- NOTE | 2023-01-22 01:22 | PC.NURSE ---
Transferred patient into a hospital bed. Patient lying in semi-fowlers with pillow under his legs. Patient states he is comfortable and does not have any pain. Call light in reach.
--- NOTE | 2023-01-22 02:34 | PC.NURSE ---
At this time [facility] does not have a bed open this evening but, they will keep the case open. calls also made to [facility], [facility], and [facility], all are at capacity and not placing on lists at this time.
[2023-01-22 02:57] LABS: Appearance Urine UA CLEAR; Bilirubin Urine UA 2+ (NEGATIVE); Color Urine UA YELLOW; Glucose Urine UA TRACE g/dL (Negative); Ketones Urine UA NEGATIVE (NEGATIVE); Leukocyte Esterase Urine UA NEGATIVE (NEGATIVE); Nitrite Urine UA POSITIVE (Negative); Occult Blood Urine UA 1+ (Negative); Protein Urine UA 3+ (Negative); Specific Gravity Urine UA >=1.030 (1.000-1.035); Urobilinogen Urine UA 0.2 E.U./dL (0.2)
[2023-01-22 02:59] LABS: Bacteria Urine Moderate (10-30); Culture Indicated Urine Specimen Cultured; RBC Urine 1-5/HPF (0-5/HPF); Squamous Epithelial Cell Urine 0-1 /HPF (0-5/HPF); WBC Urine None Seen (0-5/HPF)
--- NOTE | 2023-01-22 06:38 | PC.NURSE ---
0630 spoke with [facility] and [facility], Pt is still on list, [facility] to follow up with both places at 0900 to find out about bed status after morning huddle at both of those facilities.
[2023-01-22 06:56] LABS: Add Manual Diff / Slide Review NO; Basophils Absolute Auto 200 /uL (0-100); Basophils Percent Auto 0.9 % (0-2); Eosinophils Absolute Auto 100 /uL (0-450); Eosinophils Percent Auto 0.8 % (2-4); Hemoglobin 9.7 g/dL (13.5-17.5); Lymphocytes Absolute Auto 1000 /uL (1100-4500); Lymphocytes Percent Auto 5.8 % (25-40); Mean Corpuscular HGB Conc 33.3 % (30-36); Mean Corpuscular Hemoglobin 27.8 PG (26-34); Mean Corpuscular Volume 83.4 fL (80-100); Monocytes Absolute Auto 1000 /uL (0-900); Monocytes Percent Auto 5.7 % (3-14); Neutrophils Absolute Auto 14600 /uL (1500-7000); Neutrophils Percent Auto 86.8 % (50-75); Platelet Count 262 X10^3/uL (150-400); Red Blood Cell Count 3.48 X10^6/uL (4.5-5.9); Red Cell Distribution Width 15.4 % (11.6-14.8); White Blood Cell Count 16.8 X10^3/uL (4.5-11.0)
[2023-01-22 07:07] LABS: Alanine Aminotransferase 17 IU/L (<50); Albumin 2.7 g/dL (3.5-5.0); Albumin Globulin Ratio 0.9 (1.0-2.8); Alkaline Phosphatase 222 U/L (38-126); Aspartate Aminotransferase 39 IU/L (17-59); BUN Creatinine Ratio 25.2 (6-22); Bilirubin Total 1.1 mg/dL (0.2-1.3); Blood Urea Nitrogen 78 mg/dL (9-20); Carbon Dioxide 26 mmol/L (22-32); Chloride 96 mmol/L (98-107); Estimated Glomerular Filt Rate 20 mL/min (>60); Glucose 160 mg/dL (80-110); HEMOLYSIS < 15 (0-50); Lipase 256 U/L (23-300); Sodium 131 mmol/L (137-145); Total Protein 5.7 g/dL (6.3-8.2)
[2023-01-22 07:09] LABS: Potassium 2.7 mmol/L (3.4-5.1)
--- NOTE | 2023-01-22 07:16 | DI.RAD.S_ITS ---
PROCEDURE: XR CHEST 1V INDICATIONS: Hypoxia TECHNIQUE: One view of the chest was acquired. COMPARISON: [facility], CR, XR CHEST 1V, 07/12/2022, 13:11. [facility], CR, XR CHEST 1 VIEW, 07/14/2022, 10:06. [facility], CR, XR CHEST 1 VIEW, 07/17/2022, 10:17. [facility], CR, XR CHEST 1V, 01/21/2023, 15:15. FINDINGS: Surgical changes and devices: None. Lungs and pleura: Bilateral chronic interstitial infiltrates. No pleural effusions or pneumothorax. Mediastinum: Mediastinal contours appear normal. Heart size is normal. Bones and chest wall: No suspicious bony lesions. Overlying soft tissues appear unremarkable. IMPRESSION: Bilateral chronic interstitial infiltrates suspicious for chronic interstitial lung disease. Superimposed acute pneumonia cannot be excluded. Dictated by: Conor Alberts M.D. on 01/22/2023 at 8:08 Approved by: Conor Alberts M.D. on 01/22/2023 at 8:09
[2023-01-22 07:39] LABS: NT-proBNP (BNP-Adult 18+) 4200 pg/mL (<450)
[2023-01-22] MEDS: PIPERACILLIN/TAZO 3.375 GM in SODIUM CHLORIDE 0.9% 100 ML IV (08:03)
--- NOTE | 2023-01-22 08:21 | PC.NURSE ---
Called [facility], spoke w/ Sukhi. He will have on [facility] list and contact [facility] and [facility] to assist as needed.
[2023-01-22 08:47] LABS: Creatine Kinase 704 U/L (55-170)
--- NOTE | 2023-01-22 08:47 | DI.ECHO.S_ITS ---
[facility]---------+ [facility] +---------+ : : [address] : [place] : : : : [id number] : : : : Phone: [phone] +---------+ Echocardiogram Report + + :Name: MICHEL RUCKER Study Date: 01/22/2023 Height: 75 in : :[facility] ReadingLocation: Weight: 221 lb : : Gender: Male BSA: 2.3 m2 : :: 1945 Age: 77 yrs BP: 145/66 mmHg: :Reason For Study: CONGESTIVE HEART FAILURE : :Ordering Physician: ELIGIO, : :ALEXEI Performed By: Anahi Willis : :Referring: ALEXEI DEL VALLE : + + Interpretation Summary There is mild concentric left ventricular hypertrophy. The ejection fraction is estimated to be 45-50%. Grade II diastolic dysfunction. The right ventricle is borderline dilated. The right ventricular systolic function is normal. There is mild tricuspid regurgitation. The right ventricular systolic pressure is estimated to be at least 46 mmHg based on an estimated right atrial pressure of 3 mm Hg. Procedure: A two-dimensional transthoracic echocardiogram with color flow and Doppler was performed. The study quality was technically adequate. Comparison is made with the echocardiogram of 07/13/2022. The patient was in sinus rhythm with heart rates between 75-82 bpm during the exam. Left Ventricle: The left ventricle is normal in size. There is mild concentric left ventricular hypertrophy. The ejection fraction is estimated to be 45-50%. Diastolic parameters suggest a pseudonormalization pattern, consistent with probable elevated filling pressures. Right Ventricle: The right ventricle is borderline dilated. The right ventricular systolic function is normal. Atria: The left atrial size is normal. Right atrial size is normal. There is no Doppler evidence for an interatrial shunt. Mitral Valve: There is mild mitral annular calcification. The mitral valve is normal. There is trace mitral regurgitation. Aortic Valve: The aortic valve is mildly calcified. The aortic valve opens well. There is no aortic valve stenosis. No aortic regurgitation is present. Tricuspid Valve: The tricuspid valve is normal in structure and function. There is mild tricuspid regurgitation. The right ventricular systolic pressure is estimated to be at least 46 mmHg based on an estimated right atrial pressure of 3 mm Hg. Pulmonic Valve: The pulmonic valve is not well seen, but is grossly normal. There is no pulmonic valvular regurgitation. Great Vessels: The aortic root is normal size. The dimensions of the ascending aorta are normal. The IVC is of normal diameter and collapses greater than 50% with a sniff. This suggests a low right atrial pressure of 3 mm Hg. Pericardium/ Pleura There is no pericardial effusion. There is no pleural effusion. MMode/2D Measurements & Calculations LVIDd: 5.1 cm LVOT diam: 2.3 cm LVIDs: 3.7 cm Ao root diam: 3.6 cm FS: 27.3 % asc Aorta Diam: 3.3 cm EPSS: 1.2 cm IVSd: 1.3 cm LVPWd: 1.2 cm LV lott. diameter/BSA (cm/m^2): 2.2 LV sys. diameter/BSA (cm/m^2): 1.6 LA A2 area: 24.3 cm2 RA long axis: 4.7 cm LA A4 area: 16.4 cm2 RA area: 13.9 cm2 LA length (vol): 5.0 cm RA vol: 35.3 ml LA vol: 67.4 ml RA : 15.4 ml/m2 LA vol index: 29.4 ml/m2 IVC diam: 1.9 cm RVD1 (basal): 4.3 cm RVD2 (mid): 4.3 cm TAPSE: 1.9 cm Doppler Measurements & Calculations Ao V2 max: 162.0 cm/sec LVOT Max [place]mond: 95.3 cm/sec Ao V2 mean: 110.8 cm/sec LV V1 max P.6 mmHg Ao max P.5 mmHg LV V1 VTI: 19.1 cm Ao mean P.5 mmHg KENDRA(I,D): 2.9 cm2 Ao V2 VTI: 28.5 cm KENDRA(V,D): 2.5 cm2 sev ratio: 0.67 KENDRA indexed to BSA (cm^2/m^2): 1.2 MV E max edmond: 81.8 cm/sec TR max edmond: 327.4 cm/sec MV A max edmond: 112.2 cm/sec TR max P.9 mmHg MV E/A: 0.73 PA V2 max: 96.0 cm/sec Med Peak E' Edmond: 5.0 cm/sec PA V2 mean: 75.0 cm/sec E/E' med: 16.2 PA mean P.4 mmHg Lat Peak E' Edmond: 6.5 cm/sec PA pr(Accel): 49.5 mmHg E/E' lat: 12.6 E/e' average: 14.4 MV dec time: 0.28 sec SV(LVOT): 81.4 ml Reading Physician:11:38 AM
[2023-01-22] MEDS: FUROSEMIDE 40 MG/4 ML VIAL 20 MG IV (08:58)
[2023-01-22] MEDS: PANTOPRAZOLE 40 MG VIAL IV (08:58)
[2023-01-22 09:00] LABS: Troponin I 0.065 ng/mL (0.01-0.034)
[2023-01-22] MEDS: ATORVASTATIN 20 MG TABLET 10 MG PO (09:17)
[2023-01-22] MEDS: carvediloL 12.5 MG TABLET 25 MG PO (09:17)
--- NOTE | 2023-01-22 10:16 | PC.NURSE ---
*[employer] WORK[employer] note* sent images and facesheets to and Prov. [facility] and [place] are full [id number]
--- NOTE | 2023-01-22 11:13 | DI.US.S_ITS ---
PROCEDURE: US RENAL COMPLETE INDICATIONS: RENAL FAILURE TECHNIQUE: Real-time scanning was performed of the kidneys and bladder, with image documentation. COMPARISON: None. FINDINGS: Kidneys: Kidneys are normal in size. Right kidney measures 12.2 cm long; left kidney measures 9.7 cm long. Right renal cortical thickness is 1.7 cm; left renal cortical thickness is 1.8 cm. Renal cortical echotexture is normal. No hydronephrosis or nephrolithiasis. No suspicious solid mass lesions. Bladder: A Paz catheter is present. Miscellaneous: No free pelvic fluid. IMPRESSION: No acute process. Dictated by: Tenzin Rosado M.D. on 01/22/2023 at 12:23 Approved by: Tenzin Rosado M.D. on 01/22/2023 at 12:24
[2023-01-22] MEDS: SODIUM CHLORIDE 0.9% 1,000 ML 75 ML IV (11:32)
== END 2023-01-22 12:50 | disposition short-term general hospital (02) ==
PROVIDERS: Emergency Medicine; Emergency Provider Emergency Medicine; PCP Family Medicine
DX: K92.2 Gastrointestinal hemorrhage, unspecified (principal); A41.9 Sepsis, unspecified organism; K83.09 Other cholangitis; N17.9 Acute kidney failure, unspecified; K92.1 Melena; R10.13 Epigastric pain; R00.0 Tachycardia, unspecified; W06.XXXA Fall from bed, initial encounter; Z20.822 Contact with and (suspected) exposure to COVID-19
CPT/HCPCS: 36415; 36430; 51798; 71045; 76770; 80048; 80053; 81001; 82550; 82962; 83605; 83690; 83735; 83880; 84484; 85014; 85018; 85025; 85610; 85730; 86850; 86900; 86901; 87040; 87086; 87633; 93005; 93010; 93306; 96361; 96365; 96366; 96368; 96375; 96376; 99285; 99291; 99292; P9016; C9113; J1170; J1940; J2405; J2543